=== PATIENT | female | born 1980 | race Two or more races ===

== ENCOUNTER 2020-01-21 15:11 | Outpatient (REF) | payer OTHER, SELFPAY ==
[2020-01-21 17:02] LABS: MANUAL DIFF FLAG NO
[2020-01-21 17:09] LABS: Basophils Percent Auto 0.2 % (0-2); Eosinophils Absolute Auto 0.1 X10*3/uL (0.0-0.4); Eosinophils Percent Auto 0.6 % (0-4); Hematocrit 40.9 % (37-47); Hemoglobin 13.5 g/dl (12.0-16.0); Imm Gran Abs Auto 0.04 X10*3/uL (0.00-0.03); Imm Gran Pct Auto 0.4 % (0.0-0.4); Lymphocytes Absolute Auto 2.8 X10*3/uL (1.2-4.9); Lymphocytes Percent Auto 25.7 % (20-40); Mean Corpuscular Hemoglobin 30.9 pg (27.0-33.0); Mean Corpuscular Volume 93.6 fL (80-98); Mean Platelet Volume 9.8 fL (9.4-12.3); Monocytes Absolute Auto 0.6 X10*3/uL (0.1-1.2); Neutrophils Absolute Auto 7.2 X10*3/uL (2.0-8.3); Neutrophils Percent Auto 67.1 % (45-73); Platelet Count 363 X10*3/uL (160-400); Red Blood Count 4.37 X10*6/uL (4.20-5.50); Red Cell Distribution Width 12.5 % (11.0-16.0); White Blood Count 10.7 X10*3/uL (4.8-10.8)
[2020-01-21 17:11] LABS: Estimated Average Glucose 91 mg/dL; Hemoglobin A1c % 4.8 %
[2020-01-21 17:45] LABS: C Reactive Protein 0.54 mg/dL (< or = 0.50); Cholesterol 462 mg/dL; HDL Cholesterol 88 mg/dL; LDL Cholesterol Calculated 322 mg/dl; Triglycerides 260 mg/dL
[2020-01-21 17:47] LABS: TSH reflex Free T4 2.36 mIU/mL (0.32-4.0)
[2020-01-21 18:19] LABS: Erythrocyte Sedimentation Rate 81 MM/HR (0-20)
[2020-01-22 04:04] LABS: HBsAGNum1 0.17 S/CO (0.00-0.99); Hepatitis B Surface Antigen Negative (Negative)
== END 2020-01-21 15:12 | disposition home or self-care (01) ==
LOC: HO.LAB 15:11
PROVIDERS: PCP Family Medicine; Visit Provider Family Medicine
DX: I10 Essential (primary) hypertension (principal); M79.605 Pain in left leg; M79.604 Pain in right leg; R51.9 Headache, unspecified
CPT/HCPCS: 36415; 80061; 82550; 83036; 84443; 85025; 85652; 86140; 87340

== ENCOUNTER 2020-02-17 13:37 | Outpatient (REF) | payer OTHER, SELFPAY ==
--- NOTE | 2020-02-17 | US_ITS ---
EXAMINATION: US RIGHT AND LEFT LOWER EXTREMITY VENOUS ULTRASOUND (REFLUX EXAM) CLINICAL INDICATION: Bilateral leg pain. Evaluate for venous insufficiency. COMPARISON: None. TECHNIQUE: Color flow triplex imaging and compression Doppler was performed to evaluate both the deep and the superficial systems bilaterally. To evaluate the superficial system, the examination was performed in the upright position. Color-flow Doppler ultrasound and compression ultrasound were utilized. In addition, maneuvers were utilized to demonstrate reflux. FINDINGS: 1. DEEP VENOUS ULTRASOUND OF THE RIGHT LOWER EXTREMITY: Respiratory variation, normal compression and augmented flow are noted in the right common femoral vein, mid superior femoral vein as well as the right popliteal vein and there is no evidence of deep venous thrombosis at these locations. There is no evidence of reflux in the deep system in either the common femoral vein, superior femoral vein or the popliteal vein. There is no evidence of a Rodríguez's cyst. 2. SUPERFICIAL ULTRASOUND WITH DOPPLER OF RIGHT LOWER EXTREMITY: The right great saphenous vein at the saphenofemoral junction measures 7 mm, at the mid thigh 3 mm, [id number] 3 mm, pxyuq-exf-lkde 2 mm, at mid calf 2 mm and at the ankle measures 2 mm. There is a right greater saphenous vein reflux measuring 0.6 seconds [id number], 2.6 seconds at the mid calf and 2.3 seconds at the ankle. The right small saphenous vein measures 2-4 mm and shows no reflux. There is slow Rouleaux flow. There are small varicosities that measure less than 3 mm and do not demonstrate reflux. There is a 3.5 x 1.2 x 3.7 cm Rodríguez's cyst. 3. DEEP VENOUS ULTRASOUND OF THE LEFT LOWER EXTREMITY: Respiratory variation, normal compression and augmented flow are noted in the left common femoral vein, mid superior femoral vein as well as the left popliteal vein and there is no evidence of deep venous thrombosis at these locations. There is no evidence of reflux in the deep system in either the common femoral vein, superior femoral vein or the popliteal vein. There is no evidence of a Rodríguez's cyst. 4. SUPERFICIAL ULTRASOUND WITH DOPPLER OF LEFT LOWER EXTREMITY: Left great saphenous vein at the saphenofemoral junction measures 7 mm, at the mid thigh 4 mm, zfmyn-uud-ntah 4 mm, bzmaa-mnj-rped 3 mm, at mid calf 2 mm and at the ankle measures 2 mm. There is left greater saphenous vein reflux measuring 1.9 seconds below the knee, 2.3 seconds at the mid calf and 1.5 seconds at the ankle. The left small saphenous vein measures 2-3 mm and shows no reflux. There is slow Rouleaux flow. There are small varicosities that measure less than 3 mm and do not demonstrate reflux. There is a 3 x 2.4 x 1.2 cm Rodríguez's cyst. US/US venous duplex LE BI IMPRESSION: 1. No evidence of deep venous reflux or thrombus in the common femoral, mid superior femoral and popliteal veins bilaterally. 2. Bilateral greater saphenous vein reflux [id number]-[id number]. 3. Small bilateral Rodríguez's cysts.
== END 2020-02-17 13:38 | disposition home or self-care (01) ==
LOC: HO.US 13:37
PROVIDERS: PCP Family Medicine; Visit Provider Family Medicine
DX: M79.604 Pain in right leg (principal); M79.605 Pain in left leg
CPT/HCPCS: 93970

== ENCOUNTER 2020-02-17 15:53 | Outpatient (REF) | payer OTHER, SELFPAY ==
--- NOTE | 2020-02-17 | MR_ITS ---
EXAMINATION: MR BRAIN WITHOUT AND WITH CONTRAST CLINICAL INFORMATION: Hypertension. Systemic lupus erythematosus. Headache. COMPARISON: No relevant prior imaging. TECHNIQUE: Multiplanar MR imaging of the brain was performed without and with contrast. A total of 8 mL Gadavist was utilized for this examination. FINDINGS: Postcontrast images reveal no mass or enhancement within the intracranial compartment. No intracranial mass effect or midline shift. Lateral and third ventricles are normal. No hydrocephalus. Midline structures including the cervicomedullary junction are normal. No acute bone marrow signal changes. There is no acute territorial infarct. No pathological magnetic susceptibility artifact. Intracranial vascular flow voids are grossly maintained. There is a small right mastoid tip effusion. No active paranasal sinus disease. Globes and orbits are symmetric. MR/MR head/brain wo/w con IMPRESSION: Unremarkable examination. No evidence of acute territorial infarct or hemorrhage. No abnormal intracranial mass or enhancement.
[2020-02-17 16:39] LABS: MANUAL DIFF FLAG NO
[2020-02-17 16:48] LABS: Basophils Percent Auto 0.2 % (0-2); Eosinophils Percent Auto 0.2 % (0-4); Hematocrit 37.7 % (37-47); Hemoglobin 12.6 g/dl (12.0-16.0); Imm Gran Abs Auto 0.04 X10*3/uL (0.00-0.03); Imm Gran Pct Auto 0.3 % (0.0-0.4); Lymphocytes Absolute Auto 1.8 X10*3/uL (1.2-4.9); Lymphocytes Percent Auto 15.4 % (20-40); Mean Corpuscular HGB Conc 33.4 g/dl (31.0-35.0); Mean Corpuscular Volume 95.7 fL (80-98); Mean Platelet Volume 9.5 fL (9.4-12.3); Monocytes Absolute Auto 0.8 X10*3/uL (0.1-1.2); Monocytes Percent Auto 6.5 % (2-11); Neutrophils Absolute Auto 8.9 X10*3/uL (2.0-8.3); Neutrophils Percent Auto 77.4 % (45-73); Platelet Count 323 X10*3/uL (160-400); Red Blood Count 3.94 X10*6/uL (4.20-5.50); Red Cell Distribution Width 13.3 % (11.0-16.0); White Blood Count 11.5 X10*3/uL (4.8-10.8)
[2020-02-17 16:58] LABS: Estimated Average Glucose 100 mg/dL; Hemoglobin A1c % 5.1 %
[2020-02-17 17:08] LABS: Blood Urea Nitrogen 28 mg/dL (9-16); C Reactive Protein 0.91 mg/dL (< or = 0.50); Estimated Glomerular Filt Rate 52
[2020-02-17 17:30] LABS: TSH reflex Free T4 2.38 mIU/mL (0.32-4.0)
[2020-02-17 17:39] LABS: Erythrocyte Sedimentation Rate 81 MM/HR (0-20)
[2020-02-18 07:45] LABS: HBsAGNum1 0.39 S/CO (0.00-0.99); Hepatitis B Surface Antigen Negative (Negative)
== END 2020-02-17 15:54 | disposition home or self-care (01) ==
LOC: HO.MRI 15:53
PROVIDERS: PCP Family Medicine; Visit Provider Family Medicine
DX: I10 Essential (primary) hypertension (principal); M32.9 Systemic lupus erythematosus, unspecified; R51.9 Headache, unspecified; M79.604 Pain in right leg; M79.605 Pain in left leg
CPT/HCPCS: 36415; 70553; 82565; 83036; 84443; 84520; 85025; 85652; 86140; 87340; A9585

== ENCOUNTER 2020-05-05 16:16 | Outpatient (REF) | payer OTHER, SELFPAY ==
[2020-05-05 17:16] LABS: Blood Urea Nitrogen 35 mg/dL (9-16); Estimated Glomerular Filt Rate 40
[2020-05-06 06:32] LABS: Follicle Stimulating Hormone 184.5 mIU/mL; Prolactin 7.2 ng/mL
[2020-05-09 14:01] LABS: Testosterone, Free 0.8 pg/mL (0.1-6.4); Testosterone, Total 8 ng/dL (2-45)
[2020-05-12 22:46] LABS: Estradiol Free <0.06 pg/mL; Estradiol, Ultrasensitive <2 pg/mL
== END 2020-05-05 16:17 | disposition home or self-care (01) ==
LOC: HO.LAB 16:16
PROVIDERS: PCP Family Medicine; Visit Provider Family Medicine
DX: I10 Essential (primary) hypertension (principal); N91.1 Secondary amenorrhea
CPT/HCPCS: 36415; 82565; 82670; 83001; 84146; 84402; 84403; 84520

== ENCOUNTER → 2020-11-11 08:31 | Outpatient (BNVA) | payer OTHER, SELFPAY | PROVIDERS: PCP Family Medicine; Visit Provider Internal Medicine ==

== ENCOUNTER 2020-11-12 07:25 | Outpatient (REF) | payer OTHER, SELFPAY ==
[2020-11-12 08:30] LABS: Alanine Aminotransferase 19 U/L (0-31); Albumin Level 3.6 g/dL (3.5-5.0); Alkaline Phosphatase 126 U/L (39-117); Anion Gap 11 (12-20); Aspartate Amino Transferase 22 U/L (5-31); Bilirubin Total 0.2 mg/dL (0.0-1.0); Blood Urea Nitrogen 35 mg/dL (9-16); Calcium 8.7 mg/dL (8.4-10.2); Carbon Dioxide 22 mmol/L (22-29); Chloride 110 mmol/L (96-108); Cholesterol 178 mg/dL; Estimated Glomerular Filt Rate 37; Glucose Random 104 mg/dL (60-115); HDL Cholesterol 72 mg/dL; LDL Cholesterol Calculated 81 mg/dl; Phosphorus 3.7 mg/dL (2.7-4.5); Potassium 4.4 mmol/L (3.3-5.1); Sodium 139 mmol/L (135-145); Total Protein 6.3 g/dL (6.5-8.0); Triglycerides 125 mg/dL
[2020-11-12 08:55] LABS: Free T4 (Free Thyroxine) 1.09 ng/dL (0.71-1.85); Thyroid Stimulating Hormone 2.58 uIU/mL (0.32-4.0); Vitamin D 25-OH Total 21.1 ng/mL (>30)
[2020-11-15 04:01] LABS: LDL Cholesterol Direct 80 mg/dL (<100)
[2020-11-15 13:12] LABS: Calcium (PTHI) 8.7 mg/dL (8.6-10.2); PTHI 100 pg/mL (14-64)
[2020-11-15 16:51] LABS: Follicle Stimulating Hormone 173.4 mIU/mL; Lutenizing Hormone 154.7 mIU/mL
[2020-11-15 22:37] LABS: Adrenocorticotropic Hormone 31 pg/mL (6-50)
[2020-11-16 17:51] LABS: N-Telopeptide 57 (see note); NTXCreaRU 96 mg/dL (20-275)
[2020-11-17 03:25] LABS: Estradiol Ultra Sensitive 23 pg/mL
[2020-11-18 20:07] LABS: Saliva Cortisol 0.05 mcg/dL
[2020-11-25 01:40] LABS: Estradiol Free 0.53 pg/mL
[2020-11-25 21:17] LABS: 21 Hydroxylase Antibody NEGATIVE (NEGATIVE)
== END 2020-11-12 07:26 | disposition home or self-care (01) ==
LOC: HO.LAB 07:25
PROVIDERS: PCP Family Medicine; Visit Provider Internal Medicine
DX: E28.39 Other primary ovarian failure (principal); E55.9 Vitamin D deficiency, unspecified; M85.80 Other specified disorders of bone density and structure, unspecified site
CPT/HCPCS: 36415; 80053; 80061; 82024; 82306; 82523; 82530; 82533; 82670; 82681; 83001; 83002; 83519; 83721; 83970; 84100; 84439; 84443

== ENCOUNTER 2020-11-18 07:58 | Outpatient (REF) | payer OTHER, SELFPAY ==
[2020-11-22 18:26] LABS: Adrenocorticotropic Hormone <5 pg/mL (6-50)
[2020-11-24 09:16] LABS: Dexamethasone 864 ng/dL
== END 2020-11-18 07:59 | disposition home or self-care (01) ==
LOC: HO.LAB 07:58
PROVIDERS: PCP Family Medicine; Visit Provider Internal Medicine
DX: E28.39 Other primary ovarian failure (principal)
CPT/HCPCS: 36415; 80299; 82024; 82533

== ENCOUNTER 2020-11-19 08:45 | Outpatient (REF) | payer OTHER, SELFPAY ==
[2020-11-23 23:01] LABS: N-Telopeptide 38 (see note); NTXCreaRU 39 mg/dL (20-275)
== END 2020-11-19 08:46 | disposition home or self-care (01) ==
LOC: HO.LNP 08:45
PROVIDERS: Visit Provider Internal Medicine
DX: M85.80 Other specified disorders of bone density and structure, unspecified site (principal); E28.39 Other primary ovarian failure
CPT/HCPCS: 82523

== ENCOUNTER → 2021-03-02 12:24 | Outpatient (BNVA) | payer OTHER, SELFPAY | PROVIDERS: PCP Family Medicine; Visit Provider Internal Medicine ==

== ENCOUNTER 2021-03-31 13:24 | Outpatient (REF) | payer OTHER, SELFPAY ==
--- NOTE | ~2021-03-31 | MM_ITS ---
EXAMINATION: BONE DENSITOMETRY CLINICAL INDICATION: Hyperparathyroidism, unspecified. Age 40. COMPARISON: Previous BD dated 11/25/2019 and baseline BD dated 10/14/2013. This is the patient's baseline examination for the forearm radius 33%. TECHNIQUE: Using a [employer] DXA System (software version: 13.1) manufactured by [employer], dual-energy x-ray absorptiometry was performed of the lumbar spine, left hip, and left forearm radius 33%. The images are of good technical quality. Summary results are attached. FINDINGS: AP SPINE L1-L4: Current: BMD 1.084 g/cm2, Z-score -1.2, T-score -0.8, normal, 3.3% increase from previous, 9.4% increase from baseline (<5% change is not significant). Prior: BMD 1.049 g/cm2. Baseline: BMD 0.991 g/cm2. LEFT FEMUR, NECK: Current: BMD 0.722 g/cm2, Z-score -2.1, T-score -2.3, osteopenia. Prior: BMD 0.772 g/cm2. Baseline: BMD 0.829 g/cm2. LEFT FEMUR, TOTAL: Current: BMD 0.804 g/cm2, Z-score -1.7, T-score -1.6, osteopenia, 2.0% decrease from previous, 1.3% decrease from baseline (<5% change is not significant). Prior: BMD 0.820 g/cm2. Baseline: BMD 0.815 g/cm2. LEFT FOREARM RADIUS 33%: BMD 0.846 g/cm2, Z-score -0.3, T-score -0.3, normal. Prior: Not previously measured. IDENTIFIED RISK FACTORS: Early menopause, secondary osteoporosis, osteoporosis, renal, hyperparathyroidism, glucocorticoids (chronic). HISTORY OF FRACTURE: None listed. MEDICATIONS: Calcium supplements or multivitamin, vitamin D, ERT/SERMS. MM/XR DEXA appendicular skeleton IMPRESSION: 1. DIAGNOSIS: Osteopenia based on the lowest T-score value of -2.3 in the femoral neck applying World Health Organization criteria. 2. 10-YEAR FRACTURE RISK PREDICTION, FRAX: Not performed in this patient outside the age range of 40-90 years. 3. Treatment Recommendations: NOF guidelines recommend consideration for treatment in postmenopausal women and men age 50 and older presenting with the following: -A hip or vertebral (clinical or morphometric) fracture. -T-score less than or equal to -2.5 at the femoral neck or spine after appropriate evaluation to exclude secondary causes. -Low bone mass at the hip or spine and a 10-year fracture probability by FRAX of greater than or equal to 3% for hip fracture or greater than or equal to 20% for major osteoporotic fracture based on the [place] adapted WHO algorithm. 4. Other Recommendations: All treatment decisions require clinical judgment and consideration of individual patient factors, including patient preferences, comorbidities, previous drug use, risk factors not captured in the FRAX model (e.g. frailty, falls, vitamin D deficiency, increased bone turnover, interval significant decline in bone density) and possible under or overestimation of fracture risk by FRAX. Additional medical evaluation for secondary cause of low bone mineral density may be appropriate. FUTURE SCAN RECOMMENDATION: People with diagnosed cases of osteoporosis or at high risk for fracture should have regular bone mineral density tests. For patients eligible for Medicare, routine testing is allowed once every 2 years. The testing frequency can be increased to one year for patients who have rapidly progressing disease, those who are receiving or discontinuing medical therapy to restore bone mass, or have additional risk factors.
== END 2021-03-31 13:25 | disposition home or self-care (01) ==
LOC: HO.MAMMO 13:24
PROVIDERS: PCP Family Medicine; Visit Provider Internal Medicine
DX: Z13.820 Encounter for screening for osteoporosis (principal); E21.3 Hyperparathyroidism, unspecified; Z78.0 Asymptomatic menopausal state; Z79.899 Other long term (current) drug therapy
CPT/HCPCS: 77081

== ENCOUNTER 2021-09-14 11:32 | Outpatient (REF) | payer OTHER, SELFPAY ==
[2021-09-14 13:58] LABS: Alanine Aminotransferase 15 U/L (0-31); Albumin Level 4.1 g/dL (3.5-5.0); Alkaline Phosphatase 115 U/L (39-117); Anion Gap 16 (12-20); Aspartate Amino Transferase 20 U/L (5-31); Bilirubin Total 0.6 mg/dL (0.0-1.0); Blood Urea Nitrogen 27 mg/dL (9-16); Calcium 8.6 mg/dL (8.4-10.2); Carbon Dioxide 23 mmol/L (22-29); Chloride 102 mmol/L (96-108); Estimated Glomerular Filt Rate 50; Glucose Random 89 mg/dL (60-115); Phosphorus 3.2 mg/dL (2.7-4.5); Sodium 137 mmol/L (135-145); Total Protein 7.8 g/dL (6.5-8.0)
[2021-09-14 13:59] LABS: Cortisol Random 10.9 ug/dL
[2021-09-14 14:00] LABS: Free T4 (Free Thyroxine) 1.02 ng/dL (0.71-1.85); Thyroid Stimulating Hormone 3.74 uIU/mL (0.32-4.0); Vitamin D 25-OH Total 34.8 ng/mL (>30)
[2021-09-16 01:52] LABS: Sex Hormone Binding Globulin 102 nmol/L (17-124)
[2021-09-16 12:02] LABS: Calcium (PTHI) 8.9 mg/dL (8.6-10.2); PTHI 162 pg/mL (16-77)
[2021-09-17 22:37] LABS: Prot Elec - Albumin 3.9 g/dL (3.8-4.8); Prot Elec - Alpha1 0.4 g/dL (0.2-0.3); Prot Elec - Beta 1 0.4 g/dL (0.4-0.6); Prot Elec - Beta 2 0.5 g/dL (0.2-0.5); Prot Elec - Gamma 1.1 g/dL (0.8-1.7); Prot Elec - Total Protein 7.3 g/dL (6.1-8.1)
[2021-09-24 01:11] LABS: Estradiol Free 2.41 pg/mL; Estradiol, Ultrasensitive 194 pg/mL
== END 2021-09-14 11:33 | disposition home or self-care (01) ==
LOC: HO.LAB 11:32
PROVIDERS: PCP Family Medicine; Visit Provider Internal Medicine
DX: E28.39 Other primary ovarian failure (principal); M85.80 Other specified disorders of bone density and structure, unspecified site; E55.9 Vitamin D deficiency, unspecified
CPT/HCPCS: 36415; 80053; 82306; 82533; 82670; 82681; 83970; 84100; 84165; 84270; 84439; 84443

== ENCOUNTER 2021-10-18 20:57 | Emergency (ER) | payer OTHER, SELFPAY ==
--- NOTE | ~2021-10-18 | XR_ITS ---
EXAMINATION: XR ANKLE, LEFT CLINICAL INFORMATION: Abnormal foot x-ray COMPARISON: None TECHNIQUE: AP, lateral, and mortise views of the left ankle. FINDINGS: Bone alignment is normal. No fracture or dislocation is seen. There is a lucent lesion with faint sclerotic margin in the intramedullary distal tibial metaphysis and some posterior cortical thickening. This may represent a bone infarct. The ankle mortise is normal. Soft tissues are normal. XR/XR ankle LT 2V IMPRESSION: Question bone infarct in the distal tibia. Otherwise unremarkable exam.
--- NOTE | ~2021-10-18 | XR_ITS ---
EXAMINATION: XR FOOT, LEFT CLINICAL INFORMATION: Pain. Injury. COMPARISON: None TECHNIQUE: AP, lateral, and oblique views of the left foot. FINDINGS: Bone alignment is normal. No fracture or dislocation is seen. There is question of an intramedullary lucent lesion with sclerotic margin in the distal tibia. Joint spaces are normal. Soft tissues are normal. XR/XR foot LT min 3V IMPRESSION: Normal left foot. Question intramedullary lesion in the distal tibia. Follow-up left lower leg or ankle x-ray recommended.
[2021-10-18 21:14] VITALS: BP 153/90; PULSE 101; RESP 18; TEMP 36.4; O2SAT 98
--- NOTE | 2021-10-18 22:19 | ED_ITS ---
HPI - Extremity Injury (Lower) General Chief Complaint: Extremity Injury, Lower Stated Complaint: right foot pain Time Seen by Provider: 10/18/21 22:19 Source: patient and family (Spouse) Mode of arrival: ambulatory Limitations: no limitations History of Present Illness HPI Narrative: 41-year-old female came in for evaluation of left foot pain. About 10-15 lb luggage dropped on her left foot 3 days ago complaining of left foot pain, patient is walking with pain but able to bear weight on her left foot, no other injuries. Related Data Home Medications Medication Instructions Recorded Confirmed atorvastatin 20 mg tablet 20 mg PO DAILY 11/11/20 09/15/21 furosemide 80 mg tablet 80 mg PO DAILY 11/11/20 09/15/21 hydroxychloroquine 200 mg tablet 200 mg PO DAILY 11/11/20 09/15/21 losartan 100 mg tablet 100 mg PO DAILY 11/11/20 09/15/21 magnesium 250 mg tablet 250 mg PO DAILY 11/11/20 09/15/21 melatonin 1 mg tablet 1 mg PO BEDTIME PRN 11/11/20 09/15/21 omeprazole 10 mg capsule,delayed 10 mg PO DAILY 11/11/20 09/15/21 release tacrolimus 1 mg capsule, 2 mg PO DAILY 11/11/20 09/15/21 immediate-release valacyclovir 500 mg tablet 500 mg PO DAILY 11/11/20 09/15/21 omeprazole 20 mg capsule,delayed 20 mg PO DAILY 09/15/21 09/15/21 release Previous Rx's Medication Instructions Recorded medroxyprogesterone 10 mg tablet See Rx Instructions PO DAILY #12 11/11/20 tabs dexamethasone 1 mg tablet 1 mg PO DAILY #1 tab 11/17/20 estradiol 2 mg tablet 2 mg PO DAILY 30 days #30 tabs 12/08/20 cholecalciferol (vitamin D3) 50 50 mcg PO DAILY 30 days #30 caps 03/02/21 mcg (2,000 unit) capsule calcium citrate 250 mg 2 tab PO BID 30 days #120 tabs 09/26/21 calcium-vitamin D3 5 mcg (200 unit) tablet Allergies Allergy/AdvReac Type Severity Reaction Status Date / Time lisinopril Allergy Intermediate Cough Verified 10/18/21 21:13 adhesive tape Allergy Rash Verified 10/18/21 21:14 Review of Systems Review of Systems: all other systems are reviewed and are negative Constitutional: Reports as per HPI and Reports no additional constitutional complaints Eyes: Reports as per HPI and Reports no additional eye complaints Reports system reviewed and no additional complaints, except as documented Cardiovascular: Reports as per HPI and Reports no additional cardiovascular complaints Respiratory: Reports as per HPI and Reports no additional respiratory complaints Gastrointestinal: Reports as per HPI and Reports no additional gastrointestinal complaints Genitourinary: Reports no additional female genitourinary complaints Musculoskeletal: Reports no additional musculoskeletal complaints Skin/Breast: Reports system reviewed and no additional complaints, except as docu Psychiatric: Reports no additional psychiatric complaints Endocrine: Reports no additional endocrine complaints Hematologic/Lymphatic: Reports no additional hematologic/lymphatic complaints Allergic/Immunologic: Reports no additional allergic/immunologic complaints Reports system reviewed and no additional complaints, except as documented and Reports Abnormal speech present [facility] Past Medical History Medical History Goiter Hyperparathyroidism Osteopenia Premature ovarian failure Systemic lupus erythematosus Vitamin D deficiency Well woman exam Surgical History Hx of section Family History Family History Mother Thyroid disease Autoimmune disorder Brother Cancer Father Diabetes Social History Social History Alcohol intake: current Alcohol intake frequency: holidays/special occasions only Patient Tobacco Use Status: Former Tobacco user Smoked in Last 30 Days: No Use of substances other than those prescribed or required for medical reasons: No Advance Directives: No Advance Directives Information Provided: No Physical Exam Vital Signs: Vital Signs: Last Vital Signs Temp 99.1 F 10/18/21 22:23 Pulse 94 10/18/21 22:23 Resp 16 10/18/21 22:23 BP 147/103 H 10/18/21 22:23 Pulse Ox 98 10/18/21 22:23 O2 Del Method 10/18/21 22:23 BMI result Body Mass Index 0.3 vital signs have been reviewed as appeared to be correct. Blood pressure normal. Heart rate normal. Respiration rate normal. Temperature normal. Oxygen saturation normal. Appearance: Alert. Oriented X3. No acute distress. Head: Normal external exam. Normocephalic. Atraumatic. No Valverde signs noted. N o raccoon eyes noted Eyes: PERRLA. EOMI. Conjunctiva and sclera normal. Eyelids normal. ENT: TM's Normal. Pharynx normal. Uvula midline. Moist mucous membranes. No trismus noted. No drooling noted. No muffled voice noted. Neck: Normal inspection. Neck supple. FROM. No adenopathy. Thyroid Normal. No meningeal signs. No neck mass noted. CVS: Normal heart rate and rhythm. Heart sound normal. No murmurs noted. Pulses normal throughout. Respiratory: No respiratory distress. Painless inspiration. Breath sounds normal. No wheezes/rales/rhonchi noted. Chest nontender. No accessory muscle usage noted or decreased air movement noted. Abdomen: Soft and nontender. Bowel sounds normal in all 4 quadrants. No distention noted. No organomegaly noted. No visible injury noted. Back: No CVA tenderness. Full range of motion noted. Skin: Skin warm and dry. Normal skin color. Normal skin turgor. No rashes/lesions/lacerations noted. Extremities: mild tenderness over left foot, no deformity, no step-off. Neuro: Oriented X 3. Cranial nerve exam: II-XII are grossly intact No motor deficit. No sensory deficit. Reflexes normal. Course Course Course Narrative: Left foot contusion with no fracture. Ice, rest, elevation, acetaminophen p.r.n. pain. abnormal bone infarction? On the ankle x-ray not clear how clinically this finding is significant but will refer to Ortho for further assessment. MDM - Extremity Injury (Lower) Imaging Data Left foot x-ray: Attestation: I personally reviewed and interpreted this imaging study as follows: Radiologist's impression: Normal left foot. Question intramedullary lesion in the distal tibia. Follow-up left lower leg or ankle x-ray recommended. Discharge Plan Discharge Clinical Impression: Contusion of foot, left, Abnormal x-ray Patient Disposition: Home, Self-Care Instructions: Foot Contusion (ED) Prescriptions: No Action dexamethasone 1 mg tablet 1 mg PO DAILY Qty: 1 0RF estradiol 2 mg tablet 2 mg PO DAILY 30 Days Qty: 30 11RF calcium citrate-vitamin D3 250 mg-5 mcg (200 unit) tablet 2 tab PO BID 30 Days Qty: 120 11RF cholecalciferol (vitamin D3) 50 mcg (2,000 unit) capsule 50 mcg PO DAILY 30 Days Qty: 30 11RF magnesium 250 mg tablet 250 mg PO DAILY hydroxychloroquine 200 mg tablet 200 mg PO DAILY valacyclovir 500 mg tablet 500 mg PO DAILY losartan 100 mg tablet 100 mg PO DAILY atorvastatin 20 mg tablet 20 mg PO DAILY tacrolimus 1 mg capsule 2 mg PO DAILY furosemide 80 mg tablet 80 mg PO DAILY omeprazole 10 mg capsule,delayed release(DR/EC) 10 mg PO DAILY melatonin 1 mg tablet 1 mg PO BEDTIME PRN medroxyprogesterone 10 mg tablet See Rx Instructions PO DAILY Qty: 12 11RF Rx Instructions: Take 1 tab daily for the first 12 days of each month. PO daily; omeprazole 20 mg capsule,delayed release(DR/EC) 20 mg PO DAILY Referrals: Mayra Santos MD [Primary Care Provider] - Sampson Perera MD [Physician] -
[2021-10-18 22:23] VITALS: BP 147/103; PULSE 94; RESP 16; TEMP 37.3; O2SAT 98
== END 2021-10-18 23:15 | disposition home or self-care (01) ==
PROVIDERS: Emergency Provider Emergency Medicine; PCP Family Medicine
DX: S90.32XA Contusion of left foot, initial encounter (principal); W20.8XXA Other cause of strike by thrown, projected or falling object, initial encounter; R93.6 Abnormal findings on diagnostic imaging of limbs; Y93.89 Activity, other specified; Y92.9 Unspecified place or not applicable; Y99.9 Unspecified external cause status
CPT/HCPCS: 73600; 73630; 99283; 99284

== ENCOUNTER 2021-11-07 10:01 | Outpatient (REF) | payer OTHER, SELFPAY ==
[2021-11-12 04:41] LABS: HPV mRNA E6/E7 rflx Not Detected (Not Detected)
== END 2021-11-07 10:02 | disposition home or self-care (01) ==
LOC: HO.LAB 10:01
PROVIDERS: Visit Provider Obstetrics & Gynecology
DX: Z01.419 Encounter for gynecological examination (general) (routine) without abnormal findings (principal); Z11.51 Encounter for screening for human papillomavirus (HPV)
CPT/HCPCS: 87624; 88142

== ENCOUNTER 2021-11-23 12:23 | Outpatient (REF) | payer OTHER, SELFPAY ==
--- NOTE | ~2021-11-23 | MM_ITS ---
EXAMINATION: MM SCREENING DIGITAL BREAST TOMOSYNTHESIS, BILATERAL CLINICAL INFORMATION: Screening. Asymptomatic. Age 41. No prior breast imaging. No known family history breast cancer. The lifetime risk of breast cancer based on the Tyrer-Cuzick Model is 12%. COMPARISON: None (current study represents initial baseline exam). TECHNIQUE: Digital breast tomosynthesis is performed in both the craniocaudal and mediolateral oblique views along with computer-aided detection (CAD). Synthesized 2D images are generated from the tomosynthesis. FINDINGS: There are scattered areas of fibroglandular density (ACR BI-RADS breast composition Category b). There are no significant masses, abnormal calcifications, or other abnormalities. No architectural abnormality. The axilla and skin contours are unremarkable. MM/MM tomosynthesis screening BI IMPRESSION: No mammographic evidence of malignancy. ASSESSMENT: BI-RADS 1: Negative RECOMMENDATION: Routine annual mammography screening. This patient's information was entered into a reminder system with a target due date for their next mammogram.
== END 2021-11-23 12:24 | disposition home or self-care (01) ==
LOC: HO.MAMMO 12:23
PROVIDERS: PCP Family Medicine; Visit Provider Obstetrics & Gynecology
DX: Z12.31 Encounter for screening mammogram for malignant neoplasm of breast (principal)
CPT/HCPCS: 77063; 77067

== ENCOUNTER 2022-01-23 08:39 | Outpatient (REF) | payer OTHER, SELFPAY ==
[2022-01-23 10:01] LABS: Alanine Aminotransferase 18 U/L (0-31); Albumin Level 3.5 g/dL (3.5-5.0); Alkaline Phosphatase 76 U/L (39-117); Anion Gap 16 (12-20); Aspartate Amino Transferase 12 U/L (5-31); Bilirubin Total 0.4 mg/dL (0.0-1.0); Blood Urea Nitrogen 28 mg/dL (9-16); Calcium 9.2 mg/dL (8.4-10.2); Carbon Dioxide 22 mmol/L (22-29); Chloride 106 mmol/L (96-108); Estimated Glomerular Filt Rate 53; Glucose Random 77 mg/dL (60-115); Potassium 4.2 mmol/L (3.3-5.1); Sodium 140 mmol/L (135-145)
[2022-01-23 10:24] LABS: Vitamin D 25-OH Total 27.7 ng/mL (>30)
[2022-01-24 08:28] LABS: Sex Hormone Binding Globulin 77 nmol/L (17-124)
[2022-01-24 09:02] LABS: Lutenizing Hormone 7.6 mIU/mL
[2022-01-25 14:17] LABS: Calcium (PTHI) 9.3 mg/dL (8.6-10.2); PTHI 48 pg/mL (16-77)
[2022-01-27 16:06] LABS: 21 Hydroxylase Antibody NEGATIVE (NEGATIVE)
== END 2022-01-23 08:40 | disposition home or self-care (01) ==
LOC: HO.LAB 08:39
PROVIDERS: PCP Family Medicine; Visit Provider Internal Medicine
DX: E21.3 Hyperparathyroidism, unspecified (principal); E55.9 Vitamin D deficiency, unspecified; E28.39 Other primary ovarian failure
CPT/HCPCS: 36415; 80053; 82306; 82670; 83001; 83002; 83519; 83970; 84100; 84270

== ENCOUNTER 2022-01-25 08:40 | Outpatient (REF) | payer OTHER, SELFPAY ==
[2022-01-25 09:31] LABS: Creatinine, mg/dL 108.35
[2022-01-25 14:09] LABS: Creatinine, 24Hr Urine 1.4 G/Day (1.0-2.0); Total Volume 24 Hour Urine 1300 mL
[2022-01-28 19:52] LABS: Calcium, 24 Hr Urine 44 mg/24 h; Calcium/Creatinine Ratio 31 mg/g creat (30-275)
== END 2022-01-25 08:41 | disposition home or self-care (01) ==
LOC: HO.LNP 08:40
PROVIDERS: Visit Provider Internal Medicine
DX: E21.3 Hyperparathyroidism, unspecified (principal); E04.9 Nontoxic goiter, unspecified
CPT/HCPCS: 82340; 82570

== ENCOUNTER 2022-02-20 08:12 | Outpatient (REF) | payer OTHER, SELFPAY ==
[2022-02-20 09:31] LABS: Free T4 (Free Thyroxine) 1.02 ng/dL (0.71-1.85); Thyroid Stimulating Hormone 2.66 uIU/mL (0.32-4.0)
== END 2022-02-20 08:13 | disposition home or self-care (01) ==
LOC: HO.LAB 08:12
PROVIDERS: PCP Family Medicine; Visit Provider Internal Medicine
DX: E04.9 Nontoxic goiter, unspecified (principal)
CPT/HCPCS: 36415; 84439; 84443

== ENCOUNTER → 2022-04-28 14:19 | Outpatient (BNVA) | payer OTHER, SELFPAY | PROVIDERS: PCP Family Medicine; Referring Provider Family Medicine; Visit Provider Physician Assistant Surgical | DX: Z13.89 Encounter for screening for other disorder (principal) ==

== ENCOUNTER → 2022-05-26 15:36 | Outpatient (BNVA) | payer OTHER, SELFPAY | PROVIDERS: PCP Family Medicine; Visit Provider Dietitian, Registered | DX: E66.9 Obesity, unspecified (principal); Z68.31 Body mass index [BMI] 31.0-31.9, adult | CPT/HCPCS: 97802 ==

== ENCOUNTER 2022-06-14 08:10 | Outpatient (REF) | payer OTHER, SELFPAY ==
[2022-06-14 08:24] LABS: MANUAL DIFF FLAG NO
[2022-06-14 08:45] LABS: Basophils Percent Auto 0.5 % (0-2); Eosinophils Absolute Auto 0.2 X10*3/uL (0.0-0.4); Eosinophils Percent Auto 2.4 % (0-4); Hematocrit 37.5 % (37.0-47.0); Hemoglobin 12.9 g/dl (12.0-16.0); Imm Gran Abs Auto 0.02 X10*3/uL (0.00-0.03); Imm Gran Pct Auto 0.2 % (0.0-0.4); Lymphocytes Absolute Auto 2.2 X10*3/uL (1.2-4.9); Lymphocytes Percent Auto 26.3 % (20-40); Mean Corpuscular HGB Conc 34.4 g/dl (31.0-35.0); Mean Corpuscular Hemoglobin 31.9 pg (27.0-33.0); Mean Corpuscular Volume 92.6 fL (80.0-98.0); Mean Platelet Volume 9.7 fL (9.4-12.3); Monocytes Absolute Auto 0.6 X10*3/uL (0.1-1.2); Monocytes Percent Auto 6.9 % (2-11); Neutrophils Absolute Auto 5.4 x10*3/uL (2.0-8.3); Neutrophils Percent Auto 63.7 % (45-73); Platelet Count 326 X10*3/uL (160-400); Red Blood Count 4.05 X10*6/uL (4.20-5.50); White Blood Count 8.5 X10*3/uL (4.8-10.8)
[2022-06-14 08:54] LABS: Estimated Average Glucose 85 mg/dL; Hemoglobin A1c % 4.6 %
[2022-06-14 09:22] LABS: Alanine Aminotransferase 15 U/L (0-31); Albumin Level 3.5 g/dL (3.5-5.0); Alkaline Phosphatase 72 U/L (39-117); Anion Gap 13 (12-20); Aspartate Amino Transferase 17 U/L (5-31); Bilirubin Total 0.4 mg/dL (0.0-1.0); Blood Urea Nitrogen 26 mg/dL (9-16); C Reactive Protein 0.66 mg/dL (< or = 0.50); Calcium 9.1 mg/dL (8.4-10.2); Carbon Dioxide 24 mmol/L (22-29); Chloride 108 mmol/L (96-108); Cholesterol 249 mg/dL; Estimated Glomerular Filt Rate 50; Glucose Random 89 mg/dL (60-115); HDL Cholesterol 63 mg/dL; Iron 77 mcg/dL (30-160); LDL Cholesterol Calculated 148 mg/dl; Percent Iron Saturation 32 % (15-50); Potassium 4.6 mmol/L (3.3-5.1); Sodium 140 mmol/L (135-145); Total Iron Binding Capacity 237 mcg/dL (228-428); Total Protein 6.3 g/dL (6.5-8.0); Triglycerides 193 mg/dL; Unsaturated Iron Binding 160 ug/dL
[2022-06-14 09:53] LABS: Ferritin 135 ng/mL (10-250); Folate 10.9 ng/mL (> or = 4.0); Insulin 12 uU/mL (2-29); TSH reflex Free T4 3.11 uIU/mL (0.32-4.0); Vitamin B12 495 pg/mL (200-900); Vitamin D 25-OH Total 47.7 ng/mL (>30)
[2022-06-16 14:04] LABS: Calcium (PTHI) 9.1 mg/dL (8.6-10.2); PTHI 62 pg/mL (16-77)
[2022-06-19 03:14] LABS: Zinc 69 mcg/dL (60-130)
[2022-06-21 14:13] LABS: Vitamin B1 10 nmol/L (8-30)
[2022-06-21 23:33] LABS: Vitamin A 72 mcg/dL (38-98)
== END 2022-06-14 08:11 | disposition home or self-care (01) ==
LOC: HO.LAB 08:10
PROVIDERS: PCP Family Medicine; Visit Provider Physician Assistant Surgical
DX: E66.9 Obesity, unspecified (principal); E63.9 Nutritional deficiency, unspecified
CPT/HCPCS: 36415; 80053; 80061; 82306; 82607; 82728; 82746; 83036; 83525; 83540; 83970; 84425; 84443; 84590; 84630; 85025; 86140

== ENCOUNTER → 2022-06-23 13:06 | Outpatient (BNVA) | payer OTHER, SELFPAY | PROVIDERS: PCP Family Medicine; Visit Provider Physician Assistant Surgical | DX: Z13.89 Encounter for screening for other disorder (principal) ==

== ENCOUNTER → 2022-07-28 15:20 | Outpatient (BNVA) | payer OTHER, SELFPAY | PROVIDERS: PCP Family Medicine; Visit Provider Dietitian, Registered | DX: E66.9 Obesity, unspecified (principal); E21.3 Hyperparathyroidism, unspecified; M32.9 Systemic lupus erythematosus, unspecified | CPT/HCPCS: 97803 ==

== ENCOUNTER → 2022-08-25 15:30 | Outpatient (BNVA) | payer OTHER, SELFPAY | PROVIDERS: PCP Family Medicine; Visit Provider Physician Assistant Surgical ==

== ENCOUNTER 2022-12-04 10:43 | Outpatient (REF) | payer OTHER, SELFPAY ==
--- NOTE | ~2022-12-04 | XR_ITS ---
EXAMINATION: XR ANKLE, LEFT CLINICAL INFORMATION: Left ankle pain COMPARISON: 10/18/2021 TECHNIQUE: AP, lateral, and mortise views of the left ankle. FINDINGS: Redemonstration of a subtle lucent lesion with faint sclerotic margin in the intramedullary distal tibial metaphysis and some posterior cortical thickening, possibly representing a bone infarct. Ankle mortise is maintained. Alignment preserved. Ankle joint effusion present. XR/XR ankle LT min 3V IMPRESSION: Redemonstration of a subtle lucent lesion in the distal tibia, possibly representing a bone infarct. No displaced fracture. Additional imaging with CT scan or MRI should be considered for better visualization as these modalities are much more sensitive for detection of fracture or other underlying pathology.
== END 2022-12-04 10:44 | disposition home or self-care (01) ==
LOC: HO.HOSX 10:43
PROVIDERS: Visit Provider Physician Assistant
DX: M25.572 Pain in left ankle and joints of left foot (principal); M87.062 Idiopathic aseptic necrosis of left tibia
CPT/HCPCS: 73610

== ENCOUNTER 2022-12-04 13:33 | Outpatient (AMB) | payer OTHER, SELFPAY ==
--- NOTE | 2022-12-04 13:55 | MHC.OFFVIS ---
Intake Intake Visit Reasons: OV- LT foot pain w/xrays Intake Note: Dolores is a 5 year old female who presents today for a follow up for her left foot pain. Patient reports no pain or discomfort. Patient reports her left ankle feels better than before. Allergies lisinopril Allergy (Intermediate, Verified 12/04/22 13:56) Cough adhesive tape Allergy (Verified 12/04/22 13:56) Rash HPI OV- LT foot pain w/xrays HPI Details 42-year-old female who presents in the office today for a follow up of left foot pain. The patient reports no pain or discomfort while in the office today. She states her left ankle is better than before. [facility] Medical History (Updated 04/28/22 @ 15:11 by MOSES Vargas) Atypical squamous cells of undetermined significance (ASC-US) on cervical Pap smear Well woman exam Hyperparathyroidism Goiter Systemic lupus erythematosus Vitamin D deficiency Osteopenia Premature ovarian failure Surgical History Hx of section Hx of wisdom tooth extraction Family History Mother Thyroid disease Autoimmune disorder Brother Cancer Father Diabetes Social History Alcohol intake: current Alcohol intake frequency: holidays/special occasions only Patient Tobacco Use Status: Former Tobacco user Current occupational status: employed Current occupation: [employer] Female Reproductive History Menstrual Age of Menarche: 11 Review of Systems Const All systems reviewed & are unremarkable except as noted in HPI and below Physical Exam Const General: cooperative, healthy appearing and no acute distress Resp Effort & Inspection: normal respiratory effort and able to speak in complete sentences Cardio Rate: regular rate Peripheral pulses: Peripheral pulses 2+ throughout GI Palpation (GI): Soft to palpation Skin Lesions: no lesions Rashes: no rashes Extrem Other: Left foot: Normal to inspection. No ecchymosis, erythema, or edema. Patient is able to demonstrate dorsiflexion, plantar flexion, pronation and supination. Negative anterior drawer. Sensation intact. Pedal Pulse intact. 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 Mock is a 42-year-old female who presents in the office today for a follow up of left foot pain. The patient reports no pain or discomfort while in the office today. She states her left ankle is better than before. Left distal tibia bony infraction site is stable compared to imaging on 11/07/2021. She reports no pain in the left ankle while in the office today. Follow up will be PRN, or sooner if needed. Orders: Orders XR ankle LT min 3V 12/04/22 M25.579 - Pain in unspecified ankle and joints of unspecified foot Patient Instructions: Scribed for Elaina Adams PA-C by Amanda Pfeiffer director medical writing, on 12/04/2022 at 2:05 pm, EST. 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
== END 2022-12-04 14:06 | disposition home or self-care (01) ==
PROVIDERS: Visit Provider Physician Assistant
DX: M87.062 Idiopathic aseptic necrosis of left tibia (principal)
CPT/HCPCS: 99213

== ENCOUNTER 2023-01-02 15:01 | Outpatient (AMB) | payer OTHER, SELFPAY ==
--- NOTE | 2023-01-02 15:03 | MHC.OFFVIS ---
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 No complaints. Last Pap/HPV was negative in 11/07 Last Mammogram was BI-RADS 1 in 12/08 [facility] Medical History Atypical squamous cells of undetermined significance (ASC-US) on cervical Pap smear Well woman exam Hyperparathyroidism Goiter Systemic lupus erythematosus Vitamin D deficiency Osteopenia Premature ovarian failure Surgical History Hx of wisdom tooth extraction Hx of section Family History Mother Thyroid disease Autoimmune disorder Brother Cancer Father Diabetes Social History Household Members: Spouse and Children Housing: House Alcohol intake: current Alcohol intake frequency: holidays/special occasions only Patient Tobacco Use Status: Former Tobacco user Years Smoked: 20 Current occupational status: employed Current occupation: [employer] Sexual orientation: Straight/Heterosexual Gender identity: Female Female Reproductive History Menstrual Age of Menarche: 11 Total pregnancies: 2 Full term: 1 Number of Living Children: 2 Ab spontaneous: 1 Multiple births: 1 Date of last pap smear: 11/08/21 Date of Mammogram: 11/23/21 Review of Systems Const All systems reviewed & are unremarkable except as noted in HPI and below Card Reports as per HPI Resp Reports as per HPI GI Reports as per HPI and Reports no additional complaints Reports as per HPI Physical Exam Const General: cooperative, healthy appearing and comfortable Chest Chest palpation & inspection: normal inspection of the chest and normal palpation of entire chest wall Breast/axilla inspection: normal inspection of the breasts and normal inspection of the axillae Breast/axilla palpation: normal palpation of the breasts, normal palpation of the axillae and no axillary lymphadenopathy Resp Effort & Inspection: normal respiratory effort Auscultation: clear to auscultation bilaterally Percussion: percussion normal Cardio Palpation: normal PMI Rate: regular rate Rhythm: regular rhythm Heart sounds: no murmurs and no rubs Peripheral pulses: Peripheral pulses 2+ throughout GI Inspection: Yes normal to inspection Palpation (GI): Soft to palpation, nontender, no guarding, not rigid and No hepatosplenomegaly present Percussion: Yes normal to percussion Auscultation: normal bowel sounds Rectal Exam - Female: deferred General: Yes bladder normal to palpation External Female Exam: No lesion Speculum Exam - Vagina: normal appearance of the vagina, normal palpation, normal vaginal discharge and not erythematous Speculum Exam - Cervix: normal appearance of the cervix and normal palpation Bimanual exam- vagina & uterus: normal bimanual exam, normal palpation, uterine size normal, bladder normal to palpation, consistency normal and normal palpation Bimanual Exam- Adnexa, other: normal adnexae, no masses and no tenderness Assessment & Plan Assessment & Plan (1) Well woman exam: Comment: 01/30 ASCUS HPV negative 2015 ascus HPV negative 2016 ascus HPV negative 11/07 co testing negative Code(s): Z01.419 - Encounter for gynecological examination (general) (routine) without abnormal findings Plan: Cotesting not indicated this year. Mammogram ordered. Counseled the patient about the recommended dietary allowance of 1000 mg of Calcium & 600 IU of vitamin D. The patient was instructed to perform monthly self-breast exams and to schedule an annual exam in a year; All questions answered and the patient verbalized understanding. Instructed the patient to schedule annual exam in a year Orders: Orders MM screening mammo BI Today Z12.31 - Encounter for screening mammogram for malignant neoplasm of breast Coding Level of Care Code Est Pt Prev Care 40-64y(30842) Diagnoses Well woman exam Z01.419
[2023-01-02 15:16] VITALS: BP 128/76; BMI 30.6
== END 2023-01-02 15:30 | disposition home or self-care (01) ==
LOC: HO.HWS 15:01
PROVIDERS: PCP Family Medicine; Visit Provider Obstetrics & Gynecology
DX: Z01.419 Encounter for gynecological examination (general) (routine) without abnormal findings (principal)
CPT/HCPCS: 99396

== ENCOUNTER → 2023-01-02 15:01 | Outpatient (BNVA) | payer OTHER, SELFPAY | PROVIDERS: PCP Family Medicine; Visit Provider Obstetrics & Gynecology ==

== ENCOUNTER 2023-01-03 13:47 | Outpatient (REF) | payer OTHER, SELFPAY | END 2023-01-03 13:48 | disposition home or self-care (01) | LOC: HO.MAMMO 13:47 | PROVIDERS: Absent Provider Obstetrics & Gynecology; PCP Family Medicine; Visit Provider Family Medicine | DX: Z12.31 Encounter for screening mammogram for malignant neoplasm of breast (principal) | CPT/HCPCS: 77063; 77067 ==

== ENCOUNTER → 2023-01-03 14:00 | Outpatient (BNV) | payer OTHER, SELFPAY | PROVIDERS: Absent Provider Obstetrics & Gynecology; PCP Family Medicine; Visit Provider Radiology Diagnostic Radiology | DX: Z12.31 Encounter for screening mammogram for malignant neoplasm of breast (principal) | CPT/HCPCS: 77063; 77067 ==

== ENCOUNTER 2023-02-14 14:39 | Outpatient (AMB) | payer OTHER, SELFPAY ==
--- NOTE | 2023-02-14 14:59 | A.OFFVIS_ITS ---
Intake Vital Signs 02/14/23 15:07 Height 5 ft 3 in Weight 169 lb 15.622 oz BMI 30.1 BP 120/84 Blood Pressure Location Lt brachial Position Sitting Pulse 53 Pulse Source Pulse Oximeter Intake Visit Reasons: f/u premature ovarian failure-CONFIRMED Intake Note: Patient present today for follow up to premature ovarian failure. Marketing Sales Consultant Required: No Accompanied by: Self / Same As Patient Allergies lisinopril Allergy (Intermediate, Verified 02/14/23 15:13) Cough adhesive tape Allergy (Verified 02/14/23 15:13) Rash HPI HPI Comments History of Present Illness Details 40 YO Female with a PMHx Premature Ovarian Failure as well as SLE who is seen in F/U for premature ovarian failure. She reports her menses stopped entirely in approximately 2017. She recently underwent evaluation by her PCP which revealed very high FSH levels with undetectable estradiol levels. She was started on 250 mcg transdermal estrogen patch with 12 days of progesterone per month. After her initial visit with me we repeated her workup, which confirmed premature ovarian failure. She was changed to 2 mg of micronized 17beta estradiol orally daily, with 10 mg of medroxyprogesterone acetate for the first 12 days of each month. She has been poorly compliant with this, often missing doses and not taking this completely on schedule. She has twin children who she conceived spontaneously. She is not interested in additional fertility. She reports having a bone density completed in the past, and that this revealed osteopenia. Repeat BMD revealed low bone density in the hip. She did undergo labs which revealed evidence of secondary hyperparathyroidism with elevated PTH, low normal Calcium, and low Vitamin D. She remains on Calcium and Vitamin D. Repeat labs now with Calcium and PTH WNL. Workup was negative for mai's. Otherwise, she reports feeling well with no complaints today. DXA: 03/31/2021 FINDINGS: AP SPINE L1-L4: Current: BMD 1.084 g/cm2, Z-score -1.2, T-score -0.8, normal, 3.3% increase from previous, 9.4% increase from baseline (<5% change is not significant). Prior: BMD 1.049 g/cm2. Baseline: BMD 0.991 g/cm2. LEFT FEMUR, NECK: Current: BMD 0.722 g/cm2, Z-score -2.1, T-score -2.3, osteopenia. Prior: BMD 0.772 g/cm2. Baseline: BMD 0.829 g/cm2. LEFT FEMUR, TOTAL: Current: BMD 0.804 g/cm2, Z-score -1.7, T-score -1.6, osteopenia, 2.0% decrease from previous, 1.3% decrease from baseline (<5% change is not significant). Prior: BMD 0.820 g/cm2. Baseline: BMD 0.815 g/cm2. LEFT FOREARM RADIUS 33%: BMD 0.846 g/cm2, Z-score -0.3, T-score -0.3, normal. Prior: Not previously measured. IDENTIFIED RISK FACTORS: Early menopause, secondary osteoporosis, osteoporosis, renal, hyperparathyroidism, glucocorticoids (chronic). Labs: Laboratory Tests 09/14/21 01/23/22 01/23/22 12:05 08:56 08:56 Sodium 140 Potassium 4.2 Creatinine 1.13 Estimated GFR 53 25-OH Vitamin D To alaina 27.7 TSH 3.74 Free T4 1.02 FSH 18.0 Luteinizing Hormon e 7.6 Sex Hormone Bind G lob 77 PTH Intact 48 Calcium (PTH Intac t) 9.3 PFSH Medical History Atypical squamous cells of undetermined significance (ASC-US) on cervical Pap smear Well woman exam Hyperparathyroidism Goiter Systemic lupus erythematosus Vitamin D deficiency Osteopenia Premature ovarian failure Surgical History Hx of wisdom tooth extraction Hx of section Family History Mother Thyroid disease Autoimmune disorder Brother Cancer Father Diabetes Social History Household Members: Spouse and Children Housing: House Alcohol intake: current Alcohol intake frequency: holidays/special occasions only Patient Tobacco Use Status: Former Tobacco user Years Smoked: 20 Current occupational status: employed Current occupation: [employer] Sexual orientation: Straight/Heterosexual Gender identity: Female Female Reproductive History Menstrual Age of Menarche: 11 Physical Exam Vital Signs: Last Vital Signs Pulse 53 02/14/23 15:07 BP 120/84 02/14/23 15:07 BMI result Body Mass Index 30.1 Assessment & Plan Assessment & Plan (1) Premature ovarian failure: Code(s): E28.39 - Other primary ovarian failure Plan This is a 42-year-old female with a history of premature ovarian failure currently on estrogen/progesterone replacement. The plan is that the patient follow-up with geophysical laboratory chief regarding hormone replacement. Coding Level of Care Code Est Pt Level 3 (99979) Diagnoses Premature ovarian failure E28.39
[2023-02-14 15:07] VITALS: BP 120/84; PULSE 53; BMI 30.1
== END 2023-02-14 15:30 | disposition home or self-care (01) ==
PROVIDERS: PCP Family Medicine; Visit Provider Internal Medicine Endocrinology, Diabetes & Metabolism
DX: E28.39 Other primary ovarian failure (principal)
CPT/HCPCS: 99213

== ENCOUNTER → 2023-02-14 14:39 | Outpatient (BNVA) | payer OTHER, SELFPAY | PROVIDERS: Visit Provider Internal Medicine Endocrinology, Diabetes & Metabolism ==

== ENCOUNTER 2023-04-02 14:30 | Outpatient (RCR) | payer OTHER, SELFPAY | END 2023-05-09 08:38 | disposition home or self-care (01) | LOC: HO.OT 14:30 | PROVIDERS: PCP Family Medicine; Visit Provider Family Medicine | DX: M25.532 Pain in left wrist (principal) | CPT/HCPCS: 97033; 97110; 97166 ==

== ENCOUNTER 2023-04-11 08:45 | Outpatient (REF) | payer OTHER, SELFPAY ==
--- NOTE | ~2023-04-11 | MM_ITS ---
EXAMINATION: BONE DENSITOMETRY CLINICAL INDICATION: Osteoporosis. Previously on chronic systemic steroid for SLE.. COMPARISON: Previous BD dated 03/31/2021 and baseline BD dated 10/14/2013. TECHNIQUE: Using a [employer] DXA System (software version: 13.1) manufactured by [employer], dual-energy x-ray absorptiometry was performed of the lumbar spine and left hip. The images are of good technical quality. Summary results are attached. FINDINGS: LEFT FEMUR, NECK: Current: BMD 0.827 g/cm2, Z-score -1.3, T-score -1.5, osteopenia. Prior: BMD 0.722 g/cm2. Baseline: BMD 0.829 g/cm2. LEFT FEMUR, TOTAL: Current: BMD 0.858 g/cm2, Z-score -1.2, T-score -1.2, osteopenia, 6.7% increase from previous, 5.3% increase from baseline (<5% change is not significant). Prior: BMD 0.804 g/cm2. Baseline: BMD 0.815 g/cm2. AP SPINE L1-L4: Current: BMD 1.064 g/cm2, Z-score -1.4, T-score -1.0, normal, 1.8% decrease from previous, 7.4% increase from baseline (<5% change is not significant). Prior: BMD 1.084 g/cm2. Baseline: BMD 0.991 g/cm2. IDENTIFIED RISK FACTORS: Early menopause, glucocorticoids (chronic), osteoporosis, secondary osteoporosis. HISTORY OF FRACTURE: None listed. MEDICATIONS: Calcium or multivitamin. Vitamin D, fluoride, ERT/SERMS. MM/XR DEXA axial skeleton IMPRESSION: 1. DIAGNOSIS: Osteopenia based on the lowest T-score value of -1.5 in the femoral neck applying World Health Organization criteria. 2. 10-YEAR FRACTURE RISK PREDICTION, FRAX: Not performed in this patient on estrogen or bone building treatments. 3. Treatment Recommendations: NOF guidelines recommend consideration for treatment in postmenopausal women and men age 50 and older presenting with the following: -A hip or vertebral (clinical or morphometric) fracture. -T-score less than or equal to -2.5 at the femoral neck or spine after appropriate evaluation to exclude secondary causes. -Low bone mass at the hip or spine and a 10-year fracture probability by FRAX of greater than or equal to 3% for hip fracture or greater than or equal to 20% for major osteoporotic fracture based on the [place] adapted WHO algorithm. 4. Other Recommendations: All treatment decisions require clinical judgment and consideration of individual patient factors, including patient preferences, comorbidities, previous drug use, risk factors not captured in the FRAX model (e.g. frailty, falls, vitamin D deficiency, increased bone turnover, interval significant decline in bone density) and possible under or overestimation of fracture risk by FRAX. Additional medical evaluation for secondary cause of low bone mineral density may be appropriate. FUTURE SCAN RECOMMENDATION: People with diagnosed cases of osteoporosis or at high risk for fracture should have regular bone mineral density tests. For patients eligible for Medicare, routine testing is allowed once every 2 years. The testing frequency can be increased to one year for patients who have rapidly progressing disease, those who are receiving or discontinuing medical therapy to restore bone mass, or have additional risk factors.
== END 2023-04-11 08:46 | disposition home or self-care (01) ==
LOC: HO.MAMMO 08:45
PROVIDERS: PCP Family Medicine; Visit Provider Family Medicine
DX: Z13.820 Encounter for screening for osteoporosis (principal); M85.80 Other specified disorders of bone density and structure, unspecified site; Z78.0 Asymptomatic menopausal state
CPT/HCPCS: 77080

== ENCOUNTER 2023-06-04 09:04 | Emergency (ER) | payer OTHER, SELFPAY ==
--- NOTE | ~2023-06-04 | XR_ITS ---
EXAMINATION: XR ANKLE, LEFT CLINICAL INFORMATION: Left ankle swelling COMPARISON: Left ankle 12/04/2022 and 10/18/2021 MRI right knee 02/16/2017 TECHNIQUE: AP, lateral, and mortise views of the left ankle. FINDINGS: No acute fracture. Soft tissue swelling is present laterally. Alignment is anatomic. No erosions. Joint spaces are maintained. Again seen is a sclerotic lesion in the distal tibial metaphysis unchanged compared to 10/18/2021 consistent with a remote bone infarct. Multiple bone infarcts were seen on the prior MRI knee from 02/16/2017 XR/XR ankle LT min 3V IMPRESSION: 1. No acute fracture or dislocation. 2. Soft tissue swelling is present laterally. 3. Unchanged sclerotic lesion in the distal tibial metaphysis consistent with a remote bone infarct.
--- NOTE | ~2023-06-04 | US_ITS ---
EXAMINATION: US VENOUS ULTRASOUND WITH DOPPLER LOWER EXTREMITY, LEFT CLINICAL INFORMATION: Left lower extremity swelling COMPARISON: None available. TECHNIQUE: Ultrasound of the deep veins is performed from the hip to the calf with compression sonography and color and pulse Doppler assessment. Spectral analysis with color-flow imaging is performed. FINDINGS: There is normal venous compression and respiratory variation and augmented flow. The visualized common femoral vein, superficial femoral vein, profunda femoral vein, popliteal vein, and the trifurcation region shows no evidence of deep venous thrombosis. There is no significant popliteal fossa cyst. If the patient's symptoms persist, followup ultrasound in 5 days 7 days might be of value to exclude proximal propagation from a non-visualized calf vein. US/US venous duplex LE LT IMPRESSION: No DVT demonstrated in the left lower extremity.
[2023-06-04 09:13] VITALS: BP 141/90; PULSE 96; RESP 16; TEMP 36.3; O2SAT 99; BMI 30.1
--- NOTE | 2023-06-04 09:55 | ED_ITS ---
HPI - General Adult General Chief complaint: Extremity Injury, Lower Stated complaint: l ankle swelling no inj Time Seen by Provider: 06/04/23 09:45 Source: patient and family Mode of arrival: ambulatory Limitations: no limitations History of Present Illness HPI narrative: This is a 42-year-old female history of obesity, hyperparathyroidism, goiter, premature ovarian failure, systemic lupus erythematous presenting to the emergency department with atraumatic left ankle pain and swelling that started on Sunday and has been progressively worsening ever since. Pain is worse with movement, weight-bearing better at rest. Patient reports she is barely able to ambulate she has been using a cane for ambulation. No history of DVT or PE. Patient denies injury to affected area. She does report she has been on her feet a lot lately. Denies chest pain, shortness of breath, fevers, chills, nausea, vomiting, abdominal pain, headache, vision changes, dizziness and weakness. Patient also needs refil for lasix 80mg po BID Related Data Home Medications Medication Instructions Recorded Confirmed furosemide 80 mg tablet 80 mg PO DAILY 11/11/20 08/25/22 losartan 100 mg tablet 100 mg PO DAILY 11/11/20 08/25/22 magnesium 250 mg tablet 250 mg PO DAILY 11/11/20 08/25/22 melatonin 1 mg tablet 1 mg PO BEDTIME PRN 11/11/20 08/25/22 valacyclovir 500 mg tablet 500 mg PO DAILY 11/11/20 08/25/22 omeprazole 20 mg capsule,delayed 20 mg PO DAILY 09/15/21 08/25/22 release calcium-ergocalciferol (vit D2) cap PO 04/28/22 08/25/22 capsule ferrous sulfate 325 mg (65 mg 325 mg PO DAILY 04/28/22 08/25/22 iron) tablet tacrolimus 1 mg tablet,extended 2 mg PO DAILY 02/14/23 release 24 hr (Envarsus XR) Previous Rx's Medication Instructions Recorded estradiol 2 mg tablet 2 mg PO DAILY 90 days #90 tabs 10/31/21 medroxyprogesterone 10 mg tablet See Rx Instructions PO DAILY #12 10/31/21 tabs cholecalciferol (vitamin D3) 50 50 mcg PO DAILY 30 days #30 caps 02/27/22 mcg (2,000 unit) capsule (D3-2000) calcium citrate 200 mg (950 mg) 200 mg PO BID #180 tabs 01/16/23 tablet acetaminophen 325 mg capsule 650 mg (2 x 325 mg) PO Q6H PRN 06/04/23 (Tylenol) pain #30 caps furosemide 80 mg tablet 80 mg PO BID #30 tabs 06/04/23 morphine 15 mg immediate release 15 mg PO Q6H PRN pain 5 days #10 06/04/23 tablet tabs prednisone 50 mg tablet 50 mg PO DAILY 5 days #5 tabs 06/04/23 Allergies Allergy/AdvReac Type Severity Reaction Status Date / Time lisinopril Allergy Intermediate Cough Verified 06/04/23 09:13 adhesive tape Allergy Rash Verified 06/04/23 09:13 Review of Systems 2 Review of Systems: Yes all other systems are reviewed and are negative [facility] Past Medical History Attestation statement: The following information was validated with the patient. Source: old records reviewed and nursing notes reviewed Medical History Atypical squamous cells of undetermined significance (ASC-US) on cervical Pap smear Well woman exam Hyperparathyroidism Goiter Systemic lupus erythematosus Vitamin D deficiency Osteopenia Premature ovarian failure Surgical History Hx of wisdom tooth extraction Hx of section Family History Family History Mother Thyroid disease Autoimmune disorder Brother Cancer Father Diabetes Social History Social History Household Members: Spouse and Children Housing: House Alcohol intake: current Alcohol intake frequency: holidays/special occasions only Patient Tobacco Use Status: Former Tobacco user Years Smoked: 20 Smoked in Last 30 Days: No Substance Use Type: Marijuana Substance Use Frequency: Occasionally Advance Directives: No Advance Directives Information Provided: No Current occupational status: employed Current occupation: [employer] Sexual orientation: Straight/Heterosexual Gender identity: Female Physical Exam ED Vital Signs: Vital Signs - 24 hr 06/04/23 09:13 06/04/23 10:12 Temperature 97.3 F Pulse Rate 96 76 Respiratory Rate 16 18 Blood Pressure 141/90 H 140/74 H Pulse Oximetry 99 98 Oxygen Delivery Method Room Air Room Air BMI result Body Mass Index 30.1 vss Appearance: Alert.? Oriented X3.? No acute distress.? Head: Normocephalic, atraumatic, no step-offs or deformities Eyes: Pupils equal, round and reactive to light.? Neck: Normal inspection.? Neck supple.? CVS: Normal heart rate and rhythm.? Pulses normal.? Respiratory: No respiratory distress.? Breath sounds normal.?? Skin: Skin warm and dry.? Normal skin color.? Normal skin turgor.? Extremities: No lower extremity edema.? No calf ttp. 5/5 strength to bilateral upper extremities and right lower extremity, limited strength exam to LLE due to pain. LLE w/ 1 + pitting edema from the knee down. 2+ DP,AT,PT pulses to b/l LE. + significant swelling overlying medial and lateral malleolous and difficulty w/ ROM secondary to pain. Neuro: Oriented X 3.? No motor deficit.? No sensory deficit. Course Reevaluation(s) Reevaluation #1: CBC with white count no left shift. This is likely reactive secondary to inflammatory state/gout/pseudogout. Unlikely infectious in origin. Elevated BUN and creatinine appears to be around patient's baseline. Patient is followed by afternoon nanny. Uric acid 6.7, likely gout. Ultrasound left lower extremity pending. X-ray pending. Time: 10:52 Reevaluation #2: X-ray of left ankle no acute fracture dislocation soft tissue swelling is present laterally unchanged sclerotic lesion in the distal tibial metaphysis consistent with remote bone infarct, this appears to be old no acute findings. Will have her follow-up with the orthopedic doctor. DVT study negative. No signs of clot. At this time patient to be discharged home with prednisone, morphine, Tylenol. Will have her follow-up with ortho, Rheumatology and primary care provider. Educated patient on diagnosis and treatment plan, answered all question, patient verbalizes understanding. At this time patient will be discharged home, advised to return with new or worsening symptoms. Educated on worrisome signs and symptoms and when to return. At this time I feel comfortable discharge home. Time: 11:28 Medications Administered Discontinued Medications Generic Name Dose Route Start Last Admin Trade Name Freq PRN Reason Stop Dose Admin Acetaminophen 975 mg 06/04/23 10:54 06/04/23 11:11 Acetaminophen 325 Mg Tablet PO 06/04/23 10:55 975 mg ONCE ONE Administration Furosemide 80 mg 06/04/23 09:57 06/04/23 10:10 Furosemide 40 Mg Tablet PO 06/04/23 09:58 80 mg ONCE ONE Administration Protocol Morphine Sulfate 15 mg 06/04/23 09:57 06/04/23 10:11 Morphine Sulfate Immed Release 15 Mg Tablet PO 06/04/23 09:58 15 mg ONCE ONE Administration Medical Decision Making Medical Decision Making [facility] Narrative: 42-year-old female presents with left ankle pain and swelling, atraumatic since Sunday worsening. On exam there is evidence swelling to left ankle. Palpable pulses. Normal sensation. Discomfort with range of motion of left ankle. History and physical exam concerning for gout versus pseudogout. Unlikely arterial or venous occlusion. Unlikely septic joint. No signs of cellulitis. Unlikely fracture, dislocation or traumatic injury. There is no signs of neurovascular compromise or acute threat to limb. Plan at this time will obtain x-ray, venous duplex and basic labs. Differential Diagnosis Differential Diagnoses: The differential diagnosis associated with the presentation includes History and physical exam concerning for gout versus pseudogout. Unlikely arterial or venous occlusion. Unlikely septic joint. No signs of cellulitis. Unlikely fracture, dislocation or traumatic injury. Admission/Observation Consideration of admission/observation: Escalation of care including admission/observation considered Lab Data MDM Lab Attestation statement: I reviewed the patient's lab results. 06/04/23 10:07 06/04/23 10:07 Labs: Lab Results 06/04/23 06/04/23 Range/Units 10:07 10:54 WBC 12.1 H (4.8-10.8) X10*3/uL RBC 3.31 L (4.20-5.50) X10*6/uL Hgb 10.8 L (12.0-16.0) g/dl Hct 31.8 L (37.0-47.0) % MCV 96.1 (80.0-98.0) fL MCH 32.6 (27.0-33.0) pg MCHC 34.0 (31.0-35.0) g/dl RDW 13.4 (11.0-16.0) % Plt Count 306 (160-400) X10*3/uL MPV 9.1 L (9.4-12.3) fL Immature Gran % (Auto) 0.4 (0.0-0.4) % Neut % (Auto) 76.1 H (45-73) % Lymph % (Auto) 16.0 L (20-40) % Ellsworth % (Auto) 5.6 (2-11) % Eos % (Auto) 1.5 (0-4) % Baso % (Auto) 0.4 (0-2) % Lymph # (Auto) 1.9 (1.2-4.9) X10*3/uL Ell[place] # (Auto) 0.7 (0.1-1.2) X10*3/uL Eos # (Auto) 0.2 (0.0-0.4) X10*3/uL Baso # (Auto) 0.1 (0.0-0.2) X10*3/uL Abs Immat Gran (auto) 0.05 H (0.00-0.03) X10*3/uL Absolute Neuts (auto) 9.2 H (2.0-8.3) x10*3/uL Absolute Nucleated RBC 0.000 (0.0-0.012) X10*3/uL Nucleated RBC % (auto) 0.0 (0.0-0.2) /100WBC PT 12.6 (11.1-13.3) SEC INR 1.0 (0.9-1.1) Sodium 139 (135-145) mmol/L Potassium 4.2 (3.3-5.1) mmol/L Chloride 110 H (96-108) mmol/L Carbon Dioxide 20 L (22-29) mmol/L Anion Gap 13 (12-20) BUN 23 H (9-16) mg/dL Creatinine 1.48 H (0.5-1.4) mg/dL Estim Creat Clear Calc 49.1 Estimated GFR 39 Random Glucose 98 (60-115) mg/dL Uric Acid 6.7 H (2.4-5.7) mg/dL Calcium 8.9 (8.4-10.2) mg/dL Total Bilirubin 0.4 (0.0-1.0) mg/dL AST 16 (5-31) U/L ALT 13 (0-31) U/L Alkaline Phosphatase 68 (39-117) U/L Total Protein 6.9 (6.5-8.0) g/dL Albumin 3.4 L (3.5-5.0) g/dL Independent Interpretation I performed an independent interpretation of an: Plain X-Ray ( XR/XR ankle LT min 3V IMPRESSION: 1. No acute fracture or dislocation. 2. Soft tissue swelling is present laterally. 3. Unchanged sclerotic lesion in the distal tibial metaphysis consistent with a remote bone infarct. ) and Ultrasound (US/US venous duplex LE LT IMPRESSION: No DVT demonstrated in the left lower extremity.) Radiology Impression Discussion of test interpretation with radiology: I have reviewed the radiologist's reading. External Record Review External record reviewed: Inpatient record, Office record, Outpatient record, Prior outpatient labs, Prior outpatient radiology, Primary care record and Outside ED record Prescription Management I considered prescription management with: Pain Medication and Other (prednisoine ) Critical Care Time Critical Care Time Critical Care Time: Yes Total Critical Care Time: 35 Attestation: I attest to this time spent taking care of the patient, obtaining history, physical, reviewing labs, imaging, Discharge Plan Discharge Clinical Impression: Acute gout of left ankle, Medication refill, 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 If you were prescribed antibiotics today, it is important that you take your medication to their entirety, do not skip any doses, do not finish them early. Follow-up with your primary care provider this week. Return to the emergency department with new or worsening symptoms. Such as fevers, chills, chest pain, shortness of breath, nausea, vomiting, dizziness, headache, vision changes, lethargy In case of emergency call 911 Follow up with rheumatology ALFREDA Follow up with ortho to discuss bone infarct A narcotic has been sent to your pharmacy please take this as prescribed. Do not take more than the prescribed dose. Narcotic medications can cause addiction. Please do not mix them with alcohol. Do not take them while driving or operating machinery. Do not take them with any other narcotics. Do not share them with friends or family. They can cause constipation. Take them only for severe pain. XR/XR ankle LT min 3V IMPRESSION: 1. No acute fracture or dislocation. 2. Soft tissue swelling is present laterally. 3. Unchanged sclerotic lesion in the distal tibial metaphysis consistent with a remote bone infarct. US/US venous duplex LE LT IMPRESSION: No DVT demonstrated in the left lower extremity. Feel better! Prescriptions: New furosemide 80 mg tablet 80 mg PO BID Qty: 30 0RF prednisone 50 mg tablet 50 mg PO DAILY 5 Days Qty: 5 0RF morphine 15 mg tablet 15 mg PO Q6H PRN (Reason: pain) 5 Days Qty: 10 0RF Rx Instructions: Partial Fill upon patient request. acetaminophen [Tylenol] 325 mg capsule 650 mg PO Q6H PRN (Reason: pain) Qty: 30 0RF No Action estradiol 2 mg tablet 2 mg PO DAILY 90 Days Qty: 90 11RF medroxyprogesterone 10 mg tablet See Rx Instructions PO DAILY Qty: 12 11RF Rx Instructions: Take 1 tab daily for the first 12 days of each month. PO daily; cholecalciferol (vitamin D3) [D3-2000] 50 mcg (2,000 unit) capsule 50 mcg PO DAILY 30 Days Qty: 30 11RF calcium citrate 200 mg (950 mg) tablet 200 mg PO BID Qty: 180 3RF magnesium 250 mg tablet 250 mg PO DAILY valacyclovir 500 mg tablet 500 mg PO DAILY losartan 100 mg tablet 100 mg PO DAILY furosemide 80 mg tablet 80 mg PO DAILY melatonin 1 mg tablet 1 mg PO BEDTIME PRN omeprazole 20 mg capsule,delayed release(DR/EC) 20 mg PO DAILY Envarsus XR 1 mg tablet extended release 24 hr 2 mg PO DAILY Rx Instructions: must be taken on empty stomach ferrous sulfate 325 mg (65 mg iron) tablet 325 mg PO DAILY calcium-vitamin D2 Capsule PO Referrals: [facility] [Provider Group] - 2 days Mayra Santos MD [Primary Care Provider] - 2 days Stand Alone Forms: Work/School Release
[2023-06-04] MEDS: Furosemide 40 MG TABLET 80 MG PO (10:10)
[2023-06-04] MEDS: Morphine Sulfate Immed Release 15 MG TABLET PO (10:11)
[2023-06-04 10:12] VITALS: BP 140/74; PULSE 76; RESP 18; O2SAT 98
[2023-06-04 10:12] LABS: MANUAL DIFF FLAG NO
[2023-06-04 10:13] LABS: Basophils Absolute Auto 0.1 X10*3/uL (0.0-0.2); Basophils Percent Auto 0.4 % (0-2); Eosinophils Absolute Auto 0.2 X10*3/uL (0.0-0.4); Eosinophils Percent Auto 1.5 % (0-4); Hematocrit 31.8 % (37.0-47.0); Hemoglobin 10.8 g/dl (12.0-16.0); Imm Gran Abs Auto 0.05 X10*3/uL (0.00-0.03); Imm Gran Pct Auto 0.4 % (0.0-0.4); Lymphocytes Absolute Auto 1.9 X10*3/uL (1.2-4.9); Mean Corpuscular Hemoglobin 32.6 pg (27.0-33.0); Mean Corpuscular Volume 96.1 fL (80.0-98.0); Mean Platelet Volume 9.1 fL (9.4-12.3); Monocytes Absolute Auto 0.7 X10*3/uL (0.1-1.2); Monocytes Percent Auto 5.6 % (2-11); Neutrophils Absolute Auto 9.2 x10*3/uL (2.0-8.3); Neutrophils Percent Auto 76.1 % (45-73); Platelet Count 306 X10*3/uL (160-400); Red Blood Count 3.31 X10*6/uL (4.20-5.50); Red Cell Distribution Width 13.4 % (11.0-16.0); White Blood Count 12.1 X10*3/uL (4.8-10.8)
[2023-06-04 10:33] LABS: Alanine Aminotransferase 13 U/L (0-31); Albumin Level 3.4 g/dL (3.5-5.0); Alkaline Phosphatase 68 U/L (39-117); Anion Gap 13 (12-20); Aspartate Amino Transferase 16 U/L (5-31); Bilirubin Total 0.4 mg/dL (0.0-1.0); Blood Urea Nitrogen 23 mg/dL (9-16); Calcium 8.9 mg/dL (8.4-10.2); Carbon Dioxide 20 mmol/L (22-29); Chloride 110 mmol/L (96-108); Creatinine Clr Calc Pharmacy 49.1; Estimated Glomerular Filt Rate 39; Glucose Random 98 mg/dL (60-115); Potassium 4.2 mmol/L (3.3-5.1); Sodium 139 mmol/L (135-145); Total Protein 6.9 g/dL (6.5-8.0); Uric Acid 6.7 mg/dL (2.4-5.7)
[2023-06-04] MEDS: Acetaminophen 325 MG TABLET 975 MG PO (11:11)
[2023-06-04 11:16] LABS: Prothrombin Time 12.6 SEC (11.1-13.3)
[2023-06-04 12:02] VITALS: BP 133/68; PULSE 82; RESP 16; TEMP 36.1; O2SAT 100
== END 2023-06-04 12:04 | disposition home or self-care (01) ==
PROVIDERS: Physician Assistant; Emergency Provider Emergency Medicine; PCP Family Medicine
DX: M10.9 Gout, unspecified (principal); R93.6 Abnormal findings on diagnostic imaging of limbs; Z76.0 Encounter for issue of repeat prescription; M79.89 Other specified soft tissue disorders; M32.9 Systemic lupus erythematosus, unspecified; E21.3 Hyperparathyroidism, unspecified; E04.9 Nontoxic goiter, unspecified; E28.39 Other primary ovarian failure; E66.9 Obesity, unspecified
CPT/HCPCS: 36415; 73610; 80053; 84550; 85025; 85610; 93971; 99284

== ENCOUNTER 2023-07-10 07:45 | Outpatient (REF) | payer OTHER, SELFPAY ==
--- NOTE | 2023-07-10 07:49 | EMG_ITS ---
Left median and ulnar motor and sensory studies were performed. Left radial sensory and median and lateral antecubital sensory studies were performed and paraspinal muscles were tested with a needle. IMPRESSION: Mild left median neuropathy across carpal tunnel. MD SHERMAN Dudley/RANCHO / [phone]
== END 2023-07-10 07:46 | disposition home or self-care (01) ==
LOC: HO.NEURO 07:45
PROVIDERS: PCP Family Medicine; Visit Provider Family Medicine
DX: M25.532 Pain in left wrist (principal); G60.8 Other hereditary and idiopathic neuropathies
CPT/HCPCS: 95886; 95910

== ENCOUNTER 2023-10-16 18:52 | Outpatient (REF) | payer OTHER, SELFPAY ==
[2023-10-18 09:28] LABS: HPV mRNA E6/E7 Not Detected (Not Detected)
== END 2023-10-16 18:53 | disposition home or self-care (01) ==
LOC: HO.HHCLNP 18:52
PROVIDERS: Visit Provider Advanced Practice Midwife
DX: Z12.4 Encounter for screening for malignant neoplasm of cervix (principal)
CPT/HCPCS: 36415; 87624; 88175

== ENCOUNTER 2023-11-02 12:56 | Outpatient (REF) | payer BC, SELFPAY ==
--- NOTE | ~2023-11-02 | US_ITS ---
EXAMINATION: US PELVIS CLINICAL INFORMATION: Left lower quadrant, pelvic and perineal pain; the last menstrual period was 10/19/2023. COMPARISON: None available. TECHNIQUE: Ultrasound of the pelvis is performed using both transabdominal and transvaginal transducers along with Doppler. Transvaginal imaging is performed due to inadequate visualization transabdominally. FINDINGS: Uterus: The uterus is anteverted and measures 8.2 x 2 0.3, 0.6 cm. The double wall endometrial thickness is 4 mm. The uterus is smooth in contour and has normal myometrial echogenicity. No visible fibroid. Adnexa: The right ovary is not visualized. The left ovary is normal in size and echotexture, measuring 1.6 x 0.8 x 1.3 cm. No adnexal mass is seen. There is no free fluid within the cul-de-sac. US/US pelvic and transvaginal IMPRESSION: The right ovary is not visualized. The examination is otherwise unremarkable.
== END 2023-11-02 12:57 | disposition home or self-care (01) ==
LOC: HO.US 12:56
PROVIDERS: PCP Family Medicine; Visit Provider Advanced Practice Midwife
DX: R10.2 Pelvic and perineal pain (principal); R10.32 Left lower quadrant pain
CPT/HCPCS: 76830; 76856

== ENCOUNTER → 2024-01-07 15:00 | Outpatient (BNV) | payer BC, SELFPAY | PROVIDERS: PCP Family Medicine; Visit Provider Internal Medicine | DX: Z12.31 Encounter for screening mammogram for malignant neoplasm of breast (principal) | CPT/HCPCS: 77063; 77067 ==

== ENCOUNTER 2024-01-07 15:01 | Outpatient (REF) | payer BC, SELFPAY ==
--- NOTE | ~2024-01-07 | MM_ITS ---
EXAMINATION: MM SCREENING DIGITAL BREAST TOMOSYNTHESIS, BILATERAL CLINICAL INFORMATION: Screening. Asymptomatic. COMPARISON: Mammography: Comparison is made with available priors TECHNIQUE: Digital breast mammography with tomosynthesis is performed in both the craniocaudal and mediolateral oblique views along with computer-aided detection (CAD). FINDINGS: There are scattered areas of fibroglandular density (ACR BI-RADS breast composition Category b). There are no significant masses, abnormal calcifications, or other abnormalities. MM/MM tomosynthesis screening BI IMPRESSION: No mammographic evidence of malignancy. ASSESSMENT: BI-RADS BI-RADS 1 - Negative RECOMMENDATION: Routine annual mammography screening. 1 year F/U This examination should not preclude the clinical evaluation of a suspicious palpable abnormality. This patient's information was entered into a reminder system with a target due date for their next mammogram. Electronically signed by: Miguelina Rea DO 01/18/2024 10:47 AM EDT
== END 2024-01-07 15:02 | disposition home or self-care (01) ==
LOC: HO.MAMMO 15:01
PROVIDERS: PCP Family Medicine; Visit Provider Family Medicine
DX: Z12.31 Encounter for screening mammogram for malignant neoplasm of breast (principal)
CPT/HCPCS: 77063; 77067

== ENCOUNTER 2024-01-09 14:50 | Outpatient (AMB) | payer BC, SELFPAY ==
--- NOTE | 2024-01-09 14:52 | MHC.OFFVIS ---
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 Allergies lisinopril Allergy (Intermediate, Verified 01/09/24 15:00) Cough adhesive tape Allergy (Verified 06/04/23 09:13) Rash Medication List - Last Reconciled 01/09/24 by Amaris Acosta LPN acetaminophen (Tylenol) 650 mg (2 x 325 mg) PO Q6H PRN calcium citrate 200 mg PO BID cholecalciferol (vitamin D3) (D3-2000) 50 mcg PO DAILY 30 days estradiol 2 mg PO DAILY 90 days ferrous sulfate 325 mg PO DAILY furosemide 80 mg PO BID losartan 100 mg PO DAILY magnesium 250 mg PO DAILY omeprazole 20 mg PO DAILY tacrolimus XR (Envarsus XR) 2 mg PO DAILY valacyclovir 500 mg PO DAILY Is last menstrual period known: Yes (november) Post menopausal: No Patient : No Do you need a note to return to daycare/school/sports/work: No HPI Comments Details: Presenting for annual exam. No complaints. Last Pap/HPV was negative in 11/07 Last Mammogram was done in 01/09, the results still pending [facility] Medical History Atypical squamous cells of undetermined significance (ASC-US) on cervical Pap smear Well woman exam Hyperparathyroidism Goiter Systemic lupus erythematosus Vitamin D deficiency Osteopenia Premature ovarian failure Surgical History Hx of wisdom tooth extraction Hx of section Family History Mother Thyroid disease Autoimmune disorder Brother Cancer Father Diabetes Social History Household Members: Spouse and Children Housing: House Alcohol intake: current Alcohol intake frequency: holidays/special occasions only Patient Tobacco Use Status: Former Tobacco user Years Smoked: 20 Substance Use Type: Marijuana Current occupational status: employed Current occupation: [employer] Sexual orientation: Straight/Heterosexual Gender identity: Female Female Reproductive History Menstrual Age of Menarche: 11 Duration of menses: 3-5 days Total pregnancies: 0 History of abnormal pap smear: Yes History of STI: No Date of Mammogram: 01/07/24 Review of Systems Const All systems reviewed & are unremarkable except as noted in HPI and below Card Reports as per HPI Resp Reports as per HPI GI Reports as per HPI and Reports no additional complaints Reports as per HPI Physical Exam Vital Signs: Last Vital Signs BP 110/74 01/09/24 14:53 BMI result Body Mass Index 29.4 Const General: cooperative, healthy appearing and comfortable Chest Chest palpation & inspection: normal inspection of the chest and normal palpation of entire chest wall Breast/axilla inspection: normal inspection of the breasts and normal inspection of the axillae Breast/axilla palpation: normal palpation of the breasts, normal palpation of the axillae and no axillary lymphadenopathy Resp Effort & Inspection: normal respiratory effort Auscultation: clear to auscultation bilaterally Percussion: percussion normal Cardio Palpation: normal PMI Rate: regular rate Rhythm: regular rhythm Heart sounds: no murmurs and no rubs Peripheral pulses: Peripheral pulses 2+ throughout GI Inspection: Yes normal to inspection Palpation (GI): Soft to palpation, nontender, no guarding, not rigid and No hepatosplenomegaly present Percussion: Yes normal to percussion Auscultation: normal bowel sounds Rectal Exam - Female: deferred General: Yes bladder normal to palpation External Female Exam: No lesion Speculum Exam - Vagina: normal appearance of the vagina, normal palpation, normal vaginal discharge and not erythematous Speculum Exam - Cervix: normal appearance of the cervix and normal palpation Bimanual exam- vagina & uterus: normal bimanual exam, normal palpation, uterine size normal, bladder normal to palpation, consistency normal and normal palpation Bimanual Exam- Adnexa, other: normal adnexae, no masses and no tenderness Assessment & Plan Assessment & Plan (1) Well woman exam: Comment: 01/30 ASCUS HPV negative 2015 ascus HPV negative 2016 ascus HPV negative 11/07 co testing negative Code(s): Z01.419 - Encounter for gynecological examination (general) (routine) without abnormal findings Category: Medical Plan: Cotesting not indicated this year. Instructions given the patient to schedule next screening Mammogram in 01/10. Counseled the patient about the recommended dietary allowance of 1000 mg of Calcium & 600 IU of vitamin D. The patient was instructed to perform monthly self-breast exams and to schedule an annual exam in a year; All questions answered and the patient verbalized understanding. Instructed the patient to schedule annual exam in a year Coding Level of Care Code Est Pt Prev Care 40-64y(85940) Diagnoses Well woman exam Z01.419
[2024-01-09 14:53] VITALS: BP 110/74; BMI 29.4
== END 2024-01-09 15:16 | disposition home or self-care (01) ==
PROVIDERS: PCP Family Medicine; Visit Provider Obstetrics & Gynecology
DX: Z01.419 Encounter for gynecological examination (general) (routine) without abnormal findings (principal)
CPT/HCPCS: 99396

== ENCOUNTER → 2024-01-09 14:50 | Outpatient (BNVA) | payer BC, SELFPAY | PROVIDERS: PCP Family Medicine; Visit Provider Obstetrics & Gynecology ==

== ENCOUNTER 2024-05-23 03:56 | Emergency (ER) | payer BC, SELFPAY ==
--- NOTE | ~2024-05-23 | XR_ITS ---
CLINICAL HISTORY: twisted ankle, pain swelling 3 view left ankle Comparison: 06/04/2023 Findings: Normal alignment without acute fracture. Benign sclerotic distal tibial lesion is redemonstrated Ankle joint effusion. No radiopaque foreign body. Lateral ankle soft tissue swelling. IMPRESSION: 1. No acute fracture This document has been electronically signed by: Farzana Jerez MD on 05/23/2024 06:13:35
[2024-05-23 04:05] VITALS: BP 127/88; PULSE 110; RESP 18; TEMP 36.9; O2SAT 100; BMI 29.2
--- NOTE | 2024-05-23 07:08 | ED_ITS ---
HPI - General Adult General Chief complaint: Extremity Injury, Lower Stated complaint: gout ? left foot Time Seen by Provider: 05/23/24 07:07 Source: patient Mode of arrival: ambulatory (with a cane) Limitations: no limitations History of Present Illness ED Provider: Carol Martino PA-C HPI narrative: Patient is a 43 year old assigned female at with a history of hyperparathyroidism and gout presenting to the emergency department today with left ankle pain. Patient states that 3 days ago she twisted her left ankle and has been having pain ever since. Patient denies any head strike with the incident, patient denies any loss of consciousness with the incident, dizziness, lightheadedness, abdominal pain, nausea, vomiting, fever, chills, blurry vision, double vision, loss of vision, chest pain, difficulty breathing, shortness of breath, back pain, night sweats, pain with urination, increased urinary frequency, increased urinary urgency, blood in her urine or stool, syncope or a near syncopal episode, bowel incontinence, bladder incontinence, or any other complaints at this time. Onset (ago): day(s) () Location: left and lower extremity Relieving factors: immobilization Exacerbating factors: movement Associated symptoms: denies other symptoms Treatments prior to arrival: none Related Data Home Medications ?Medication ?Instructions ?Recorded ?Confirmed losartan 100 mg tablet 100 mg PO DAILY 11/11/20 01/09/24 magnesium 250 mg tablet 250 mg PO DAILY 11/11/20 01/09/24 valacyclovir 500 mg tablet 500 mg PO DAILY 11/11/20 01/09/24 omeprazole 20 mg capsule,delayed 20 mg PO DAILY 09/15/21 01/09/24 release ferrous sulfate 325 mg (65 mg 325 mg PO DAILY 04/28/22 01/09/24 iron) tablet tacrolimus 1 mg tablet,extended 2 mg PO DAILY 02/14/23 01/09/24 release 24 hr (Envarsus XR) Previous Rx's ?Medication ?Instructions ?Recorded estradiol 2 mg tablet 2 mg PO DAILY 90 days #90 tabs 10/31/21 cholecalciferol (vitamin D3) 50 50 mcg PO DAILY 30 days #30 caps 02/27/22 mcg (2,000 unit) capsule (D3-2000) calcium citrate 200 mg PO BID #180 tabs 01/16/23 acetaminophen 325 mg capsule 650 mg (2 x 325 mg) PO Q6H PRN 06/04/23 (Tylenol) pain #30 caps furosemide 80 mg tablet 80 mg PO BID #30 tabs 06/04/23 Allergies Allergy/AdvReac Type Severity Reaction Status Date / Time lisinopril Allergy Intermediate Cough Verified 05/23/24 04:07 adhesive tape Allergy Rash Verified 05/23/24 04:07 Review of Systems Constitutional: Constitutional: Reports no additional constitutional complaints, Denies chills, Denies fever(s) and Denies night sweats Eyes: Eyes: Reports no additional eye complaints, Denies blurry vision, Denies change in vision, Denies diplopia, Denies eye discharge, Denies loss of vision and Denies eye pain ENT: Denies dizziness Cardiovascular: Cardiovascular: Reports no additional cardiovascular complaints, Denies chest pain, Denies lightheadedness, Denies Loss of Consciousness and Denies dyspnea Respiratory: Respiratory: Reports no additional respiratory complaints and Denies dyspnea Gastrointestinal: Gastrointestinal: Reports no additional gastrointestinal complaints, Denies abdominal pain, Denies melena, Denies hematochezia, Denies change in bowel habits and Denies change in stool character Genitourinary: Genitourinary: Denies hematuria, Denies urinary frequency, Denies dysuria, Denies urinary incontinence, Denies urinary hesitancy and Denies urinary urgency Musculoskeletal: Musculoskeletal: Reports no additional musculoskeletal complaints, Denies numbness and Denies tingling Comments: left ankle pain Neurologic: Denies dizziness, Denies loss of vision, Denies numbness and Denies tingling Psychiatric: Psychiatric: Reports no additional psychiatric complaints Endocrine: Endocrine: Reports no additional endocrine complaints Hematologic/Lymphatic: Hematologic/Lymphatic: Reports no additional hematologic/lymphatic complaints Allergic/Immunologic: Allergic/Immunologic: Reports no additional allergic/immunologic complaints REPLACED BY [facility] Past Medical History Attestation statement: The following information was validated with the patient. Source: old records reviewed and nursing notes reviewed Medical History Atypical squamous cells of undetermined significance (ASC-US) on cervical Pap smear Well woman exam Hyperparathyroidism Goiter Systemic lupus erythematosus Vitamin D deficiency Osteopenia Premature ovarian failure Surgical History Hx of wisdom tooth extraction Hx of section Family History Family History Mother Thyroid disease Autoimmune disorder Brother Cancer Father Diabetes Social History Social History Household Members: Spouse and Children Housing: House Alcohol intake: current Alcohol intake frequency: holidays/special occasions only Patient Tobacco Use Status: Former Tobacco user Years Smoked: 20 Substance Use Type: Marijuana Advance Directives: No Advance Directives Information Provided: No Current occupational status: employed Current occupation: [employer] Sexual orientation: Straight/Heterosexual Gender identity: Female Physical Exam ED Vital Signs: Vital Signs - 24 hr 05/23/24 04:05 05/23/24 07:47 Temperature 98.4 F 98.4 F Pulse Rate 110 H 110 H Respiratory Rate 18 18 Blood Pressure 127/88 127/88 Pulse Oximetry 100 100 Oxygen Delivery Method Room Air Room Air BMI result Body Mass Index 29.2 Const General: cooperative, no acute distress, alert and awake Nutritional Appearance: well nourished Orientation/consciousness: patient oriented x3 Limitations: no limitations HENMT Head: Yes normal to inspection and Yes atraumatic Ears: hearing grossly normal bilaterally and external ears normal General nose exam: Normal external nose present, no nasal discharge noted and no epistaxis Face and sinus: Yes normal facial exam, No abrasion and No laceration Mouth: Normal oral and palatal mucosa present, no drooling and no muffled voice Eyes General: appearance normal, both eyes and all related structures Periorbital: periorbital findings normal Eyelids: Yes eyelids normal Conjunctivae: conjunctivae normal Pupils: Equal, round and reactive pupils present EOM: EOMs intact bilaterally Neck Neck: Yes normal visual inspection, Yes full ROM and Yes no lymphadenopathy Chest Chest palpation & inspection: normal inspection of the chest Resp Effort & Inspection: normal respiratory effort and able to speak in complete sentences GI Inspection: Yes normal to inspection Neuro General: patient oriented x3, moves all extremities and CN's II-XI intact bilaterally Cranial nerves: Yes Equal, round and reactive pupils present Cognition (Neuro): normal cognition Extrem Other: lateral swelling to the left ankle pain with palpation and ROM of the left ankle General: Yes full ROM and Yes capillary refill normal Psych Appearance: grossly normal Mental Status: mental status grossly normal Affect: normal affect Attitude: cooperative Thought process: Normal thought process present Thought content: Normal thought content present Insight: Good insight present (Psych) Procedures Orthopedic Splinting/Casting Injury #1: Side: left Lower Extremity Injury Location: ankle Lower Extremity Immobilizer: boot orthosis Medical Decision Making Medical Decision Making MDM Narrative: Patient is a 43 year old assigned female at with a history of hyperparathyroidism and gout presenting to the emergency department today with left ankle pain. Patient's physical exam was as noted in the physical exam portion of this note. Patient's left ankle x-ray showed no acute process. Patient's clinical presentation is most consistent with a left ankle sprain. I explained my physical exam findings as well as all test results to the patient. I answered all questions asked by the patient. Patient's left ankle was placed in a tall walking boot without incident. Patient's PMS was intact prior to and after boot placement. I stressed the importance of the patient taking her medication as directed (either prescribed or as the over the counter packaging recommends). I stressed the importance of the patient following up with her primary care provider and an orthopedic provider. I stressed the importance of the patient returning to the emergency department immediately if her symptoms were to worsen or if she were to develop any dizziness, shortness of breath, difficulty breathing, chest pain, blurry vision, loss of vision, nausea, vomiting, abdominal pain, fever, chills, back pain, or any other complaints. Patient verbalized agreement and understanding with this treatment plan and discharge. Differential Diagnosis Differential Diagnoses: The differential diagnosis associated with the presentation includes Left ankle sprain Left ankle strain Left ankle fracture Admission/Observation Consideration of admission/observation: Escalation of care including admission/observation considered Patient would have been admitted to the hospital had her work up had any findings where hospital admission was appropriate and her clinical presentation warranted hospital admission. Independent Interpretation I performed an independent interpretation of an: Plain X-Ray Interpretation: My interpretation is in agreement with the radiologist's impression of this imaging study. CLINICAL HISTORY: twisted ankle, pain swelling 3 view left ankle Comparison: 06/04/2023 Findings: Normal alignment without acute fracture. Benign sclerotic distal tibial lesion is redemonstrated Ankle joint effusion. No radiopaque foreign body. Lateral ankle soft tissue swelling. IMPRESSION: 1. No acute fracture This document has been electronically signed by: Farzana Jerez MD on 05/23/2024 06:13:35 Dictated By: Farzana Jerez MD Signed By: Electronically signed by Farzana Jerez MD 05/23/24 0614 Radiology Impression Discussion of test interpretation with radiology: I have reviewed the radiologist's reading. Discharge Plan Discharge Clinical Impression: Sprain of ankle Patient Disposition: Home, Self-Care Instructions: Ankle Sprain (DC), Walking Boot (ED) Additional Instructions: You may remove the boot when stationary / sleeping. Follow up with your primary care provider and the orthopedic team. Return to the emergency department immediately if your symptoms worsen or if you develop any numbness, tingling, dizziness, shortness of breath, difficulty breathing, chest pain, blurry vision, loss of vision, nausea, vomiting, abdominal pain, fever, chills, back pain, or any other complaints. Please see the information below about our Patient Portal. If you are not yet enrolled in the [facility] Patient Portal, you will receive an enrollment email invitation following your visit to any [facility] setting. You may also self-enroll in the Patient Portal by visiting our website: [email or web address] The following information is required to access the Patient Portal: - Your [facility] Medical Record Number - Your personal home email address (must match what is in your electronic medical record, Registration staff can assist with this) - Name - Date of Capabilities of the Patient Portal: - Message some providers - View upcoming appointments - Access your health summary, medical history, and visit history - View current conditions and allergies - View procedure and lab results - View your medications, including guidelines, side effects, and precautions - Complete pre-appointment questionnaires requested by your provider - Ready summary reports of your office visits and procedures To access the Patient Portal Mobile Jacky, follow these directions: - Search [employer] in the Jacky Store or Google Play Store - Download the Jacky - Search for [facility] - Enter your login/password Prescriptions: No Action estradiol 2 mg tablet 2 mg PO DAILY 90 Days Qty: 90 11RF cholecalciferol (vitamin D3) [D3-2000] 50 mcg (2,000 unit) capsule 50 mcg PO DAILY 30 Days Qty: 30 11RF calcium citrate 200 mg (950 mg) tablet 200 mg PO BID Qty: 180 3RF furosemide 80 mg tablet 80 mg PO BID Qty: 30 0RF acetaminophen [Tylenol] 325 mg capsule 650 mg PO Q6H PRN (Reason: pain) Qty: 30 0RF magnesium 250 mg tablet 250 mg PO DAILY valacyclovir 500 mg tablet 500 mg PO DAILY losartan 100 mg tablet 100 mg PO DAILY omeprazole 20 mg capsule,delayed release(DR/EC) 20 mg PO DAILY Envarsus XR 1 mg tablet extended release 24 hr 2 mg PO DAILY Rx Instructions: must be taken on empty stomach ferrous sulfate 325 mg (65 mg iron) tablet 325 mg PO DAILY Referrals: [facility] Orthopedic Surgeons [Provider Group] (Call to establish and follow up with an orthopedic provider for your left ankle sprain. ) Mayra Santos MD [Primary Care Provider] - Stand Alone Forms: Work/School Release Interventions: ED Discharge Assessment Last Done: 05/23/24 07:47 Discharge Date/Time: 05/23/24 07:48 Print Language: Qatari
--- OUTSIDE RECORDS SUMMARY | 2024-05-23 07:08 | XMS_ITS | Encounter Summary ---
Author Organization [facility], Address [address] [address] Phone Care Team Providers Care Wellhead Pumper Name Role Phone Mayra Santos MD Primary Care Provider [phone] Reason for Visit * Reason Onset Date Comments Med Refill 04/28/2022 Encounter Details Date Type Department Care Team (Late st Contact Info) Description 04/28/2022 Refill [facility] [address] [place] [address] Garcia Arora MD [address] [place] [address] [place] [address] Social History Tobacco Use Types Packs/Day Years Used Date Smoking Tobacco: Never Alcohol Use Standard Drinks/Week Comments No 0 (1 standard drink = 0.6 oz pure alcohol) Alcoholic Drinks/day: Occasional social drink Comments Unknown Sex and Gender Information Value Date Recorded Sex Assigned at Not on file Legal Sex Female 4:35 PM EST Gender Identity Not on file Sexual Orientation Not on file documented as of this encounter Plan of Treatment Upcoming Encounters Date Type Department Care Team (Late st Contact Info) Description 08/22/2024 4:00 PM EDT Office Visit [facility] [address] [place] [address] Garcia Arora MD [address] [place] [address] [place] [address] documented as of this encounter Visit Diagnoses Not on filedocumented in this encounter Care Teams Wellhead Pumper Relationship Specialty Start Date End Date Mayra Santos MD PCP - General 01/21/19 documented as of this encounter
--- OUTSIDE RECORDS SUMMARY | 2024-05-23 07:08 | XMS_ITS | Encounter Summary ---
Author Organization [facility], Address [address] [address] Phone Care Team Providers Care Social Media Manager Name Role Phone Mayra Santos MD Primary Care Provider Reason for Visit * Nephrology Services (Routine) - Authorized Specialty Diagnoses / Procedures Referred By Contac t Referred To Contact Nephrology Diagnoses Proteinuria PLS VERIFY INSURANCE Procedures ESTABLISHED Mayra Santos MD [address] [place] [address] Phone: tel: fax: Garcia Arora MD [address] [place] [address] [place] [address] Phone: tel: fax: Referral ID Status Reason Start Date Expiration Date V isits Requested Visits Authorized [id number] Authorized 09/24/2023 09/23/2024 6 6 Encounter Details Date Type Department Care Team (Latest Contact Info) Description 05/21/2024 3:45 PM EST Office Visit [facility], [address] [place] [address] Garcia Arora MD [address] [place] [address] [place] [address] SLE glomerulonephritis syndrome (HCC) (Primary Dx); Focal segmental glomerulosclerosis; Persistent proteinuria; Hypertension Social History Tobacco Use Types Packs/Day Years [...] on file documented as of this encounter Last Filed Vital Signs Vital Sign Reading Time Taken Comments Blood Pressure 104/76 05/21/2024 4:04 PM EST Pulse - - Temperature - - Respiratory Rate - - Oxygen Saturation - - Inhaled Oxygen Concentration - - Weight - - Height - - Body Mass Index - - documented in this encounter H&P Notes * Garcia Arora MD - 05/21/2024 3:45 PM EST Images from the original note were not included. PATIENT: Dolores Mock : 1980 ENCOUNTER: 05/21/2024 PCP: Mayra Santos MD Dolores Mock is a 43 y.o. year old patient who I have followed for the following: Dolores Mock is a 41 y.o. year old female with a history of Diffuse proliferative lupus nephritis. She has been treated aggressively in the past and had been off of immunosuppression for quite some time. She had a normal GFR and about [address] protein by [address] of protein to creatinine ratio. In 2019 she presented essentially with nephrotic syndrome and almost 12 g of proteinuria. This was in the setting of a creatinine of 0.8 mg/dl. She underwent a kidney biopsy September 18, 2019. In the past she had a combination of class IV and class V. The most recent biopsy showed segmental sclerosis of 8 of 13 glomeruli with relatively sparse subepithelial and subendothelial electron dense deposits classified as chronic inactive lupus nephritis. There was evidence of diffuse foot process effacement. Therewas global sclerosis of 3 of 13 glomeruli with mild interstitial fibrosis and tubular atrophy involving about 10% of the cortical area. The ISN activity index was 1 with a chronicity index of 5. In the interval since our last visit I have had the opportunity to review the following: -availablelaboratory data, imaging studies, and cardiovascular data -current medication list if available from patient; any changes from previous (including information from the patient's pharmacy, [facility], and Care Everywhere) During this visit I had the opportunity for a full review of systems and limited physical exam as outlined below, with the pertinent findings noted and others found to be negative or noncontributory to the current assessment of this patient. HPI: Dolores ultimately was put on Acthar. Unfortunately she had many side effects including muscle painand weakness in her legs. She gained a considerable amount of weight after going on the Acthar. Shecontinued on the tacrolimus as well. I ultimately took her off of the Acthar. Her creatinine was stable at 1.2 mg/dL with nonnephrotic range proteinuria of about 2.5 g and a serum albumin of 3.9. We did genetic testing for FSGS. She did not have genetic findings consistent with a genetic form of FSGS. She felt better after coming off of the Acthar but was still concerned about her considerable weight gain. She has followed up with the obesity clinic. She continues to struggle with her weight. Previously, I put her on Jardiance. It was not approved by her insurance. I also suggested that maritzauss with the weight loss clinic going on Mounjaro or Ozempic. Wegovy was prescribed for her butit was not approved. Her course has also been complicated by an episode of gout. She was treated acutely with prednisone. She continues on calcineurin inhibitor therapy with tacrolimus and ultimatelyher nephrotic syndrome has gone into remission and her creatinine has been in the range of 1.4 to 1.6 mg/dL. Her albumin is normal at 4.5 and her urine protein to creatinine ratio is pending althoughthe last one was less than a gram. I once again prescribed a GLP-1 agonist because her insurance changed. This was approved for 2 weeks. She use it for 2 weeks and has been off it since. She remains on long-acting tacrolimus 1 mg/day which is a low dose. She remains off of steroids. She has no edema. She continues to get intermittent bouts of gout. PAST MEDICAL HISTORY: Patient Active Problem List Diagnosis Date Noted ??? Dyslipidemia 08/24/2022 ??? Essential hypertension 06/01/2021 ??? Proteinuria 05/30/2019 ??? SLE glomerulonephritis syndrome (HCC) 05/30/2019 ??? Glomerulonephritis 05/30/2019 ??? Raynaud's disease 08/06/2012 ROS: Constitutional: No fever. Respiratory: No shortness of breath. Cardiovascular: No chest pain. Gastrointestinal: No abdominal pain, nausea or vomiting, no change in appetite. Genitourinary: No hematuria, pain, or difficulty voiding. All other systems reviewed and are negative. MEDICATIONS: Outpatient Encounter Medications as of 05/21/2024 Medication Sig Dispense Refill ??? Acetaminophen Extra Strength 500 MG tablet TOME BRIGIDO TABLETA CADA OCHO HORAS CUANDO SEA NECESARIO PARA EL DOLOR ??? acetaminophen-codeine (TYLENOL #3) 300-30 MG per tablet TAKE 1 TABLET BY ORAL ROUTE EVERY 4 HOURS NEEDED NEEDED FOR PAIN ??? allopurinol (ZYLOPRIM) 100 MG tablet Take 2 tablets (200 mg total) by mouth 1 (one) time each day 60 tablet 11 ??? atorvastatin (Lipitor) 10 MG tablet Take 1 tablet (10 mg total) by mouth 1 (one) time each day 30 tablet 11 ??? calcium citrate (CALCITRATE) 950 (200 Ca) MG tablet TOME BRIGIDO TABLETA DOS VECES AL D A ??? cetirizine (ZyrTEC) 10 MG tablet TOME BRIGIDO TABLETA TODOS LOS D EN LA MA SAPNA ??? Chest Congestion Relief 100 MG/5ML liquid TAKE 10 ML BY MOUTH IF NEEDED IN THE MORNING, AT NOON, AND AT BEDTIME FOR COUGH FOR UP TO 10 DAYS. ??? [facility] Magnesium Oxide 250 MG tablet TOME BRIGIDO TABLETA TODOS LOS D ??? cyclobenzaprine (FLEXERIL) 5 MG tablet PLEASE SEE ATTACHED FOR DETAILED DIRECTIONS ??? D3 Super Strength 50 MCG (2000 UT) capsule Take 1 capsule by mouth 1 (one) time each day 30 capsule 11 ??? ergocalciferol (VITAMIN D2) 1.25 MG (83191 UT) capsule TAKE 1 CAPSULE POR V A ORAL EVERY WEEK FOR 12 WEEKS ??? estradiol (ESTRACE) 2 MG tablet ??? ferrous sulfate 325 (65 Fe) MG tablet Take 1 tablet (325 mg total) by mouth 1 (one) time each day with breakfast 90 tablet 3 ??? fluticasone (FLONASE) 50 MCG/ACT nasal spray PLEASE SEE ATTACHED FOR DETAILED DIRECTIONS ??? furosemide (LASIX) 80 MG tablet Take 1 tablet (80 mg total) by mouth in the morning and 1 tablet (80 mg total) in the evening. 180 tablet 3 ??? hydroxychloroquine (PLAQUENIL) 200 MG tablet ??? losartan (COZAAR) 100 MG tablet TOME BRIGIDO TABLETA TODOS LOS D ??? Magnesium 250 MG tablet TOME BRIGIDO TABLETA TODOS LOS D ??? medroxyPROGESTERone (PROVERA) 10 MG tablet ??? norgestimate-ethinyl estradiol (SPRINTEC 28) 0.25-35 MG-MCG per tablet Comments: Filled Date:Sep 01 2017 12:00AM Patient Notes: TAKE 1 TABLET BY ORAL ROUTE EVERY DAY Duration: 28 ??? omeprazole (PriLOSEC) [address] capsule TAKE 1 CAPSULE (20 MG TOTAL) BY MOUTH 1 (ONE) TIME EACH DAY DO NOT CRUSH OR CHEW. 90 capsule 3 ??? Semaglutide-Weight Management (Wegovy) 0.5 MG/0.5ML solution auto-injector Inject 0.5 mg under the skin per week 2 mL 11 ??? Tacrolimus ER (Envarsus XR) 1 MG tablet sustained-release 24 hour TOME DOS TABLETAS POR VIA ORAL TODOS LOS SANABRIA 150 tablet 11 ??? valACYclovir (VALTREX) 500 MG tablet TAKE 2 TABLETS BY ORAL ROUTE 3 TIMES EVERY DAY FOR 7 DAYS FOR SHINGLES No facility-administered encounter medications on file as of 05/21/2024. ALLERGIES: has No Known Allergies. PHYSICAL EXAM: BP 104/76 Constitutional: No apparent distress Cardiovascular: No friction rub. Pulmonary/Chest: No rales. Abdominal: Soft and non-tender. Extremities: Edema None LABS: Chemistry Lab Units 05/20/24 0842 01/15/24 1150 06/24/23 1012 04/03/23 1049 01/16/23 1056 10/25/22 1008 09/08/22 1456 CREATININE mg/dL 1.66* 1.42* 1.58* 1.9* 1.5* 1.4* 1.3* BUN mg/dL 39* 45* 32* 34* 22* 31* 37* POTASSIUM mmol/L 4.2 4.4 4.3 4.5 4.7 4.7 5.0 SODIUM mmol/L 136 138 138 138 139 139 139 CO2 mmol/L 23 20 25 27 25 23 23 CHLORIDE mmol/L 96 100 101 101 105 104 104 ALBUMIN g/dL 4.5 4.1 4.0 4.1 3.9 3.4 3.7 EGFRNAFR ML/MIN/1.73 M2 -- -- -- 34 45 48 54 WBC AUTO x10E3/uL 9.9 9.1 8.1 8.2 7.3 -- 9.0 HEMATOCRIT % 40.3 38.1 34.0 36.7 40.8 -- 39.0 HEMOGLOBIN g/dL 13.6 12.6 11.4 12.1 13.7 -- 12.9 PLATELETS AUTO x10E3/uL 306 283 286 304 359 -- 319 Bone Mineral Lab Units 05/20/24 0842 01/15/24 1150 06/24/23 1012 04/03/23 1049 01/16/23 1056 10/25/22 1008 09/08/22 1456 06/14/22 0823 CALCIUM mg/dL 9.9 9.4 9.3 9.4 10.0 9.0 < > 9.1 PHOSPHORUS mg/dL 3.5 3.9 3.7 3.2 3.6 3.5 < > -- ALK PHOS U/L -- -- -- -- -- -- -- 72 < > = values in this interval not displayed. SUMMARY: Based on the above findings and my interpretation of the available data including med review, the following problems/diagnoses with recommendations for any further testing, treatment options, and follow-up are provided for your review: Chronic and Active Issues: 1. SLE glomerulonephritis syndrome (HCC) 2. Focal segmental glomerulosclerosis 3. Persistent proteinuria 4. Hypertension Dolores has a history of nephrotic proteinuria with no overt nephrotic syndrome. She has a history of proliferative lupus nephritis which was treated in the past but has been grappling with FSGS and has been on long-acting tacrolimus. She continues to struggle with her weight. Thankfully, her nephrotic syndrome has resolved and remains in remission. I am putting her on allopurinol 100 mg/day. I will see if we can get further approval for the Wegovy. Otherwise, I will see her back in 3 months. Orders Placed This Encounter ??? allopurinol (ZYLOPRIM) 100 MG tablet ??? Semaglutide-Weight Management (Wegovy) 0.5 MG/0.5ML solution auto-injector documented in this encounter Plan of Treatment Upcoming Encounters Date Type Department Care Team (Late st Contact Info) Description 08/22/2024 4:00 PM EDT Office Visit [facility], [address] [place] [phone] Garcia Arora MD [address] [place] [address] [place] [phone] documented as of this encounter Visit Diagnoses Diagnosis SLE glomerulonephritis syndrome (HCC)- Primary Focal segmental glomerulosclerosis Persistent proteinuria Hypertension documented in this encounter Care Teams Social Media Manager Relationship Specialty Start Date End Date Mayra Santos MD PCP - General 01/21/19 documented as of this encounter
--- OUTSIDE RECORDS SUMMARY | 2024-05-23 07:08 | XMS_ITS | Encounter Summary ---
Author Organization [facility] Address [address] [facility] [address] [address] [place] [address] Care Team Providers Care Occupational Therapist Aide Name Role Phone Mayra Santos MD Primary Care Provider [phone] Reason for Visit * Reason Onset Date Comments chart prep 04/28/2024 Encounter Details Date Type Department Care Team ([facility] st Contact Info) Description 04/28/[address] [facility] [address] [place] [address] Meena Crews MA chart prep Social History Tobacco Use Types Packs/Day Years Used Date Smoking Tobacco: Former Cigarettes Passive Smoke Exposure: Never Smokeless Tobacco: Never Alcohol Use Standard Drinks/Week Comments Not Currently 0 (1 standard drink = 0.6 oz pur e alcohol) Depression Answer Date Recorded Patient Health Questionnaire-9 Score 3 07/13/2022 Housing Stability Answer Date Recorded What is your housing situation today? I have octavio wade 01/01/[address] you li ve. Do you have problems with any of the following? None of the above 01/01/2023 Food Insecurity Answer Date Recorded Within the past 12 months, y ou worried that your food would run out before you got money to buy more: Never True 01/01/2023 Within the past 12 months,th e food you bought just didn't last and you didn't have enough money to get more: Never True Transportation Answer Date Recorded In the past 12 months, has l ack of transportation kept you from medical appts, meetings, work or from getting things needed for daily living? No 01/01/2023 Utilities Answer Date Recorded In the past 12 months, has t he electric, gas, oil or water company threatened to shut off services in your home? No 01/01/2023 Depression Answer Date Recorded Patient Health Questionnaire-2 Score 0 07/13/2022 Comments No Sex and Gender Information Value Date Recorded Sex Assigned at Female 01/16/2022 10:19 AM EDT Legal Sex Female 10:19 AM EDT Gender Identity Female 01/16/2022 10:19 AM EDT Sexual Orientation Straight 01/16/2022 10 :19 AM EDT documented as of this encounter Miscellaneous Notes * Telephone Encounter - Meena Crews MA - 04/28/2024 3:16 PM EST Chart Prep Labs: done Images: done Vaccines due: Covid Due, Tdap Due, and Flu Due Referrals: Completed Screenings: HIV screening Overdue care gaps: Sbirt, SDOH, and PHQ-9 documented in this encounter Plan of Treatment Upcoming Encounters Date Type Department Care Team (Late st Contact Info) Description 06/09/2024 3:45 PM EDT Office Visit [facility] [address] [place] [phone] Mayra Santos MD [address] [place] [phone] documented as of this encounter Visit Diagnoses Not on filedocumented in this encounter Additional Health Concerns Assessment Noted Time PHQ-9 Depression Total Score: 3 07/14/19 23 11:25 AM EDT documented as of this encounter Care Teams Occupational Therapist Aide Relationship Specialty Start Date End Date Mayra Santos MD [address] [place] [phone] PCP - General Family Medicine 07/24/13 documented as of this encounter
--- OUTSIDE RECORDS SUMMARY | 2024-05-23 07:08 | XMS_ITS | Encounter Summary ---
Author Organization [facility] Address [address] [place] [address] 7 [place] [address] Care Team Providers Care Manager Regulatory Name Role Phone Mayra Santos MD Primary Care Provider [phone] Reason for Visit * Reason Onset Date Comments Lab question 05/22/2024 Encounter Details Date Type Department Care Team ([facility] st Contact Info) Description 05/22/2024 Telephone [facility] [address] [place], [place] [phone] Mayra Santos MD [address] [place] [address] Lab question Social History Tobacco Use Types Packs/Day Years [...] encounter Miscellaneous Notes * Telephone Encounter - Kesha Ramirez RN - 05/22/2024 11:15 AM EST Telephone call returned to pt, no answer, left voicemail to call back [facility]. TSH lab is fasting. [employer] message. Pt to call back PRN. * Telephone Encounter - Candice Parada - 05/22/2024 10:35 AM EST Tc from pt requesting a call back to clarify if labs from 04/29 should be done on an empty stomach. Labs: TSH W. Reflex to FT4, Prolactin, HCG, Total, Quantitative documented in this encounter Plan of Treatment Upcoming Encounters Date Type Department Care Team (Late st Contact Info) Description 06/09/2024 3:45 PM EDT Office Visit [facility] [address] [place] [address] Mayra Santos MD [address] [place] [address] documented as of this encounter Visit Diagnoses Not on filedocumented in this encounter Additional Health Concerns Assessment Noted Time PHQ-9 Depression Total Score: 3 07/14/19 23 11:25 AM EDT documented as of this encounter Care Teams Manager Regulatory Relationship Specialty Start Date End Date Mayra Santos MD [address] [place] [address] PCP - General Family Medicine 07/24/13 documented as of this encounter
--- OUTSIDE RECORDS SUMMARY | 2024-05-23 07:08 | XMS_ITS | Encounter Summary ---
Author Organization [facility], Address [address] [address] Phone Care Team Providers Care Buildings And Grounds Supervisor Name Role Phone Mayra Santos MD Primary Care Provider Encounter Details Date Type Department Care Team (Late Contact Info) Description 04/17/2022 Documentation Only [facility] [address] [place] [address] Garcia Arora MD [address] [place] [address] [place] [address] Social History Tobacco Use Types [...] Visit [facility] [address] [place] [address] Garcia Arora MD [address] [place] [address] [place] [address] documented as of this encounter Visit Diagnoses Not on filedocumented in this encounter Care Teams Buildings And Grounds Supervisor Relationship Specialty Start Date End Date Mayra Santos MD PCP - General 01/21/19 documented as of this encounter
--- OUTSIDE RECORDS SUMMARY | 2024-05-23 07:08 | XMS_ITS | Encounter Summary ---
Author Organization [employer] [facility] Address [address] [place] [address] [address] [place] [address] Care Team Providers Care Data Services Developer Name Role Phone Mayra Santos MD Primary Care Provider [phone] Encounter Details Date Type Department Care Team (Late st Contact Info) Description 12/20/2022 Abstract [facility] [address] [place] [phone] Suzy Clark Social History Tobacco Use Types Packs/Day Years Used Date Smoking Tobacco: Former Cigarettes Passive Smoke Exposure: Never Smokeless Tobacco: Never Depression Answer Date Recorded Patient Health Questionnaire-9 Score 3 07/13/2022 Depression Answer Date Recorded Patient Health Questionnaire-2 Score 0 07/13/2022 Comments Unknown Sex and Gender Information Value Date Recorded Sex Assigned at Female 01/16/2022 10:19 AM EDT Legal Sex Female 10:19 AM EDT Gender Identity Female 01/16/2022 10:19 AM EDT Sexual Orientation Straight 01/16/2022 10 :19 AM EDT documented as of this encounter Plan of Treatment Upcoming Encounters Date Type Department Care Team (Late st Contact Info) Description 06/09/2024 3:45 PM EDT Office Visit [facility] [address] [place] [phone] Mayra Santos MD [address] [place], [place] [phone] documented as of this encounter Procedures Procedure Name Priority Date/Time Associated Diagnosis Comments HM PAP/HPV Routine 11/07/2021 documented in this encounter Results * Hm Pap Smear (11/07/2021) Pap Negative for intraephithelial lesion or malignancy Negative for intraephithelial lesion or malignancy, Other HPV Undetected us Historical Provider HEALTH MAINTENANCE Final Result documented in this encounter Visit Diagnoses Not on filedocumented in this encounter Additional Health Concerns Assessment Noted Time PHQ-9 Depression Total Score: 3 07/14/19 23 11:25 AM EDT documented as of this encounter Care Teams Data Services Developer Relationship Specialty Start Date End Date Mayra Santos MD [address] [place] [address] PCP - General Family Medicine 07/24/13 documented as of this encounter
--- OUTSIDE RECORDS SUMMARY | 2024-05-23 07:08 | XMS_ITS | Clinical Summary ---
Author Organization [employer] Address [address] [place] [address] Care Team Providers Care Bond Clerk Name Role Phone Mayra Santos MD Primary Care Provider [phone] Allergies Active Allergy Reactions Criticality Noted Date Comments Lisinopril Cough High 05/14/2014 Other reaction(s): Lip swelling Medications cholecalciferol (Vitamin D-3) 50 MCG (1999 UT) capsule TOME BRIGIDO C DEEPTHI TODOS LOS D 023 Active ferrous sulfate 325 (65 Fe) MG tablet TAKE 1 TABLET BY MOUTH 1 TIME EACH DAY WITH BREAKFAST. 023 Active acetaminophen (Tylenol Extra Strength) 500 MG tabletIndications :Viral URI Take 1 tablet (500 mg) by mouth every 8 (eight) hours if needed for mild pain. 30 tablet 023 Active atorvastatin (Lipitor) 20 MG tablet Take 1 tablet by mouth at bed time. 021 Active empagliflozin (Jardiance) 10 MG Take 10 mg by mouth. 023 Active omeprazole (PriLOSEC) [address] capsule Take 1 tablet by mouth once daily 90 capsule 3 023 Active acetaminophen-cod eine (Tylenol w/ Codeine #3) 300-30 MG tablet TAKE 1 TABLET BY ORAL ROUTE EVERY 4 HOURS NEEDED NEEDED FOR PAIN 020 Active calcium carbonate (Os-Sma) 1250 (500 Ca) MG tablet Take 1 tablet by mouth 2 times daily. 020 Active ergocalciferol (Vitamin D2) 1.25 MG (95135 UT) capsule TAKE 1 CAPSULE POR V A ORAL EVERY WEEK FOR 12 WEEKS 020 Active furosemide (Lasix) 80 MG tablet Take 80 mg by mouth. 024 Active hydroxychloroquin e (Plaquenil) 200 MG tablet TOME BRIGIDO TABLETA TODOS LOS D FOR 90 DAYS Active magnesium 250 MG tablet TOME BRIGIDO TABLETA TODOS LOS D 023 Active magnesium oxide 250 MG tablet TAKE 1 TABLET BY MOUTH EVERY DAY 90 tablet 1 024 Active valACYclovir (Valtrex) 500 MG tabletIndications :Herpes simplex vulvovaginitis TAKE 1 TABLET BY MOUTH TWICE DAILY FOR SUPPRESSIVE THERAPY 180 tablet 3 025 Active losartan (Cozaar) 100 MG tabletIndications :Primary hypertension TAKE 1 TABLET BY MOUTH EVERY MORNING 90 tablet 3 025 Active tacrolimus (Prograf) 1 MG capsuleIndication s:Dr Arora Take 1 mg by mouth 2 times daily. Active estradiol (Estrace) 2 MG tablet Take 1 tablet (2 mg) by mouth Once per day. 90 tablet 1 025 2024 Active progesterone 200 MG capsule Take x 12 days a month, starting on first of the month 72 capsule 1 025 Active estradiol (Estrace) 2 MG tablet Take 1 tablet (2 mg) by mouth Once per day. 90 tablet 1 024 2024 Discontinued(R eorder (will not trigger notification to Pharmacy)) progesterone 200 MG capsule TAKE X 12 DAYS A MONTH, STARTING ON FIRST OF THE MONTH 72 capsule 1 024 2024 Discontinued(R eorder (will not trigger notification to Pharmacy)) Active Problems Problem Noted Date Diagnosed Date Acute gout of left ankle 06/13/2023 Overview (06/13/2023): -resolved -uric acid was 6.7 -no new medication started will let her Nephrologists know Assessment & Plan (06/13/2023 11:33 AM EDT): -resolved -uric acid was 6.7 -no new medication started will let her Nephrologists know Goiter 06/13/2023 Hyperparathyroidism 06/13/2023 Vitamin D deficiency 06/13/2023 Venous insufficiency 09/05/2022 Assessment & Plan (09/05/2022 10:05 AM EDT): -venous study on 02/16/20 showed venous insufficiency -leg elevation -compression stocking was prescribed, but her insurance has not approved it -DASH diet -appropriate physical activity Weight gain 08/28/2022 Assessment & Plan (08/28/2022 3:56 PM EDT): Multifactorial: Medication Side-effects, discontinued physical activity, stress.. -encouraged to try [facility] -PCP Will call Low Altitude Air Defense Gunner and Acid Bath Mixer for pt's optimal Tx for Lupus Obesity (BMI 30-39.9) 08/28/2022 Assessment & Plan (03/11/2023 11:52 AM EST): Multifactorial: Medication Side-effects, limited physical activity, stress -Patient started seeing Weight Fishing Rod Assembler, since April 2022 and attending regularly -Patient is frustrated with the slow-progress. Agreed to try Pharmacological Treatment -tried phentermine from August to Nov 2022, which was ineffective, but will try again since GLP-1 agonist was not approved. Consider phentermine - topiramate combo. -GLP-1 agonist was prescribed. Semaglutide is not covered by pt's insurance. Will try again Assessment & Plan (12/01/2022 11:52 AM EDT): Multifactorial: Medication Side-effects, limited physical activity, stress -Patient started seeing Weight Fishing Rod Assembler, since April 2022 and attending regularly -Patient is frustrated with the slow-progress. Agreed to try Pharmacological Treatment -discussed about GLP-1 agonist and Phentermine -tried phentermine from August to Nov 2022, which was ineffective -will try GLP-1 Agonist Assessment & Plan (08/28/2022 4:11 PM EDT): Multifactorial: Medication Side-effects, limited physical activity, stress -Patient started seeing Weight Fishing Rod Assembler, since April 2022 and attending regularly -Patient is frustrated with the slow-progress. Agreed to try Pharmacological Treatment -discussed about GLP-1 agonist and Phentermine -will start Phentermine -will check GLP-1 Agonist will be approved by Insurance Dyslipidemia 08/24/2022 Assessment & Plan (03/11/2023 11:42 AM EST): - Current medication: Atorvastatin 20 mg at bedtime (?adherence) - Last lipid profile: 06/14/22 TC 249; TG 193; HDL 63; LDL 148 - Work on lifestyle modification Assessment & Plan (12/01/2022 11:59 AM EDT): - Current medication: Atorvastatin 20 mg at bedtime (?adherence) - Last lipid profile: 06/14/22 TC 249; TG 193; HDL 63; LDL 148 - Work on lifestyle modification Assessment & Plan (08/28/2022 4:08 PM EDT): - Current medication: Atorvastatin 20 mg at bedtime (?adherence) - Last lipid profile: 06/14/22 TC 249; TG 193; HDL 63; LDL 148 - Work on lifestyle modification Focal segmental glomerulosclerosis 08/24/2022 Assessment & Plan (03/11/2023 11:36 AM EST): - 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 She was started on immunosuppressant. She completed mycophenolate treatment in Oct 2015. She has been following with Dr. Paiz, bag bundler, for SLE nephritis / proteinuria. She was on hydroxychloroquine until 2015 when she was following with Dr. Velásquez, lead front end developer. Her SLE had been stable. Her renal function was normal, except proteinuria about 1 g. In spring 2019, she developed heavy proteinuria, shortly after she had Shingles. Her SCr was still 0.8 mg/dl. Her kidney biopsy in September 2019 showed a segmental sclerosis of 8 of 13 glomeruli with relatively sparse subepithelial and subendothelial electron dense deposits classified as chronic inactive lupus nephritis. There was evidence of diffuse foot process effacement. There was global sclerosis of 3 of 13 glomeruli with mild interstitial fibrosis and tubular atrophy involving about 10% of the cortical area. The ISN activity index was with a chronicity index of 5. 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 She was started on losartan, prednisone and diuretics. Due to elevated BP, losartan dose was titrated up to 100 mg daily. She was started on tacrolimus and her prednisone dose was tapered off. She continues to take furosemide 80 mg bid. Because she was failing on tacrolimus therapy, she was started on Acthar (cortisporin injection). It was discontinued due to weight gain. Recently prescribed SGLT-2 inhibitor. Currently on long-acting tacrolimus Continue following with Dr. Paiz. 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 She was started on immunosuppressant. She completed mycophenolate treatment in Oct 2015. She has been following with Dr. Paiz, bag bundler, for SLE nephritis / proteinuria. She was on hydroxychloroquine until 2015 when she was following with Dr. Velásquez, lead front end developer. Her SLE had been stable. Her renal function was normal, except proteinuria about 1 g. In spring 2019, she developed heavy proteinuria, shortly after she had Shingles. Her SCr was still 0.8 mg/dl. Her kidney biopsy in September 2019 showed a segmental sclerosis of 8 of 13 glomeruli with relatively sparse subepithelial and subendothelial electron dense deposits classified as chronic inactive lupus nephritis. There was evidence of diffuse foot process effacement. There was global sclerosis of 3 of 13 glomeruli with mild interstitial fibrosis and tubular atrophy involving about 10% of the cortical area. The ISN activity index was with a chronicity index of 5. 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 She was started on losartan, prednisone and diuretics. Due to elevated BP, losartan dose was titrated up to 100 mg daily. She was started on tacrolimus and her prednisone dose was tapered off. She continues to take furosemide 80 mg bid. Because she was failing on tacrolimus therapy, she was started on Acthar (cortisporin injection). It was discontinued due to weight gain. Recently prescribed SGLT-2 inhibitor. Continue following with Dr. Paiz. 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 She was started on immunosuppressant. She completed mycophenolate treatment in Oct 2015. She has been following with Dr. Paiz, bag bundler, for SLE nephritis / proteinuria. She was on hydroxychloroquine until 2015 when she was following with Dr. Velásquez. Her SLE had been stable. Her renal function was normal, except proteinuria about 1 g. In spring 2019, she developed heavy proteinuria, shortly after she had Shingles. Her SCr was still 0.8 mg/dl. Her kidney biopsy in September 2019 showed a segmental sclerosis of 8 of 13 glomeruli with relatively sparse subepithelial and subendothelial electron dense deposits classified as chronic inactive lupus nephritis. There was evidence of diffuse foot process effacement. There was global sclerosis of 3 of 13 glomeruli with mild interstitial fibrosis and tubular atrophy involving about 10% of the cortical area. The ISN activity index was with a chronicity index of 5. 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 She was started on losartan, prednisone and diuretics. Due to elevated BP, losartan dose was titrated up to 100 mg daily. She was started on tacrolimus and her prednisone dose was tapered down to 5 mg daily. She continues to take furosemide 80 mg bid. Because she was failing on tacrolimus therapy, Dr. Paiz prescribed Acthar therapy. However, it has not been approved and she may start Rituximab if Acthar is not approved. Osteopenia 08/24/2022 Assessment & Plan (03/11/2023 11:37 AM EST): Chronic steroid use, terminal system operator, tapered off in 2020 DEXA 11/25/19 Osteopenia T-score -1.9 DEXA 03/31/21 Osteopenia T-score -2.3 in femoral neck Continue calcium and vitamin D supplementation ?consider bisphosphonate Weight bearing exercise Assessment & Plan (12/01/2022 11:51 AM EDT): Chronic steroid use, terminal system operator, tapered off in 2020 DEXA 11/25/19 Osteopenia T-score -1.9 DEXA 03/31/21 Osteopenia T-score -2.3 in femoral neck Continue calcium and vitamin D supplementation ?consider bisphosphonate Weight bearing exercise Assessment & Plan (09/05/2022 10:10 AM EDT): Chronic steroid use, terminal system operator, tapered off in 2020 DEXA 11/25/19 Osteopenia T-score -1.9 DEXA 03/31/21 Osteopenia T-score -2.3 in femoral neck Continue calcium and vitamin D supplementation ?consider bisphosphonate Weight bearing exercise Premature ovarian failure 08/24/2022 Assessment & Plan (03/11/2023 11:38 AM EST): - Seen by [facility] endocrinology, Dr. Mark Sal, on Nov 11 2020, change the dose of the hormone replacement, currently on estradiol 2 mg daily and progesterone 10 mg daily for first 12 days of month - normal pap smear in September 2020. Assessment & Plan (08/28/2022 3:58 PM EDT): Seen by endocrinology, Dr. Mark Sal, on Nov 11 2020, change the dose of the hormone replacement, currently on estradiol 2 mg daily and progesterone 10 mg daily for first 12 days of month, normal pap smear in September 2020. Secondary amenorrhea 08/24/2022 Assessment & Plan (03/11/2023 11:34 AM EST): -Following with [facility] Endocrinology -05/05/20 Elevated FSH, suggestive of premature ovarian failure -MRI on 02/17/20 did not show pituitary tumor. -Continue progesterone and estradiol. Since she has a difficulty getting refills from endocrinology office, will prescribe Assessment & Plan (12/01/2022 11:50 AM EDT): -Following with [facility] Endocrinology -05/05/20 Elevated FSH, suggestive of premature ovarian failure -MRI on 02/17/20 did not show pituitary tumor. -Continue progesterone and estradiol. Since she has a difficulty getting refills from endocrinology office, will prescribe Assessment & Plan (09/05/2022 10:07 AM EDT): -Following with [facility] Endocrinology -05/05/20 Elevated FSH, suggestive of premature ovarian failure -MRI on 02/17/20 did not show pituitary tumor. -Continue progesterone and estradiol as prescribed by historiographer Hypertension 06/19/2022 Assessment & Plan (03/11/2023 11:34 AM EST): -Goal BP < 140/90 per JNC-8 and < 130/80 per ACC/AHA guideline -BP elevated today -Continue working on lifestyle modifications -Recommended self-monitoring BP. -her bag bundler has been leading BP management -continue losartan 100 mg daily -continue furosemide 80 mg bid -Prednisone started in September 2019 and tappered down and off in September 2020 -Follow up in 3-6 mo, sooner if any problem arises Assessment & Plan (12/01/2022 11:45 AM EDT): -Goal BP < 140/90 per JNC-8 and < 130/80 per ACC/AHA guideline -BP elevated today -Continue working on lifestyle modifications -Recommended self-monitoring BP. -her bag bundler has been leading BP management -continue losartan 100 mg daily -continue furosemide 80 mg bid -Prednisone started in September 2019 and tappered down and off in September 2020 -Follow up in 3-6 mo, sooner if any problem arises Assessment & Plan (09/05/2022 9:50 AM EDT): -Goal BP < 140/90 per JNC-8 and < 130/80 per ACC/AHA guideline -BP elevated today -Continue working on lifestyle modifications -Recommended self-monitoring BP. -continue losartan 100 mg daily -continue furosemide 80 mg bid -Prednisone started in September 2019 and tappered down and off in September 2020 -Follow up in 3-6 mo, sooner if any problem arises Assessment & Plan (06/19/2022 6:59 PM EDT): -Continue with current med regimen and follow up with PCP if readings continue to be elevated at home. Glomerulonephritis 05/30/2019 Proteinuria 05/30/2019 ASCUS of cervix with negative high risk HPV 04/20 Avascular necrosis of bone 05/09/2016 Long-term use of immunosuppressant medication Allergic rhinitis 07/23/2013 Assessment & Plan (08/28/2022 4:09 PM EDT): - Start Cetirizine and Flonase - consider allergy testing if recurrent symptoms or refractory to medication - consider Montelukast if pt is still symptomatic Systemic lupus erythematosus 03/13/2013 Assessment & Plan (03/11/2023 11:42 AM EST): Class IV-V -Current medications: --tacrolimus, started on 10/31/19, currently on long-acting 2 mg once daily -2019 worsening of proteinuria and LE edema, ESR 106 -Most recent kidney Bx on 09/18/19, focal segmental glomerulosclerosis, chronic inactive lupus nephritis, mild interstitial fibrosis Treatment Hx: -Atovaquone switched to mycophenolate in early 2013. -Completed Cytoxan monthly injection (15 month course). -Completed Cellcept (mycophenolate) Tx in Oct 2015. -Completed prednisone (>1 year, 8335-6088). -Discontinued amlodipine, prescribed for Raynaud due to hypotension. -Discontinued ACEI due to cough -Discontinued ARB due to hypotension -Hydroxychloroquine (with folic acid) stopped in 2018 -Acthar (corticotropin Injection) stopped in 1708-3119 due to weight gain and other endocrinological side effect -Low Altitude Air Defense Gunner: Dr. Paiz at [facility], last visit on 11/14/22 -Acid Bath Mixer: Dr. Rosales, last seen on 05/26/22. -Treatment Technician: Dr. Luna, last seen in July 2017 for Plaquenil use. Advised to reschedule since pt was on chronic steroid / increased risk for cataract - Hx unsuccessful BTL in May 2016. Her got a vasectomy. Assessment & Plan (12/01/2022 11:58 AM EDT): Class IV-V -Current medications: --tacrolimus, started on 10/31/19, currently on long-acting 2 mg once daily -2019 worsening of proteinuria and LE edema, ESR 106 -Most recent kidney Bx on 09/18/19, focal segmental glomerulosclerosis, chronic inactive lupus nephritis, mild interstitial fibrosis Treatment Hx: -Atovaquone switched to mycophenolate in early 2013. -Completed Cytoxan monthly injection (15 month course). -Completed Cellcept (mycophenolate) Tx in Oct 2015. -Completed prednisone (>1 year, 7859-4732). -Discontinued amlodipine, prescribed for Raynaud due to hypotension. -Discontinued ACEI due to cough -Discontinued ARB due to hypotension -Hydroxychloroquine (with folic acid) stopped in 2018 -Acthar (corticotropin Injection) stopped in 7732-0611 due to weight gain and other endocrinological side effect -Low Altitude Air Defense Gunner: Dr. Paiz at [facility], last visit on 11/14/22 -Acid Bath Mixer: Dr. Rosales, last seen on 05/26/22. -Treatment Technician: Dr. Luna, last seen in July 2017 for Plaquenil use. Advised to reschedule since pt was on chronic steroid / increased risk for cataract - Hx unsuccessful BTL in May 2016. Her got a vasectomy. Assessment & Plan (09/05/2022 10:13 AM EDT): Class IV-V -Current medications --tacrolimus, started on 10/31/19, currently 2 mg bid --prednisone, started in September 2019 and tapered off on September 2020 --losartan 100 mg daily --furosemide 80 mg bid --atorvastatin 10 mg qhs --Started on Acthar since 11/2021 -Recently had worsening of proteinuria and LE edema, ESR 106 -Most recent kidney Bx on 09/18/19, focal segmental glomerulosclerosis, chronic inactive lupus nephritis, mild interstitial fibrosis Treatment Hx: -Atovaquone switched to mycophenolate in early 2013. -Completed Cytoxan monthly injection (15 month course). -Completed Cellcept (mycophenolate) Tx in Oct 2015. -Completed prednisone (>1 year, 7276-6908). -Discontinued amlodipine, prescribed for Raynaud due to hypotension. -Discontinued ACEI due to cough -Discontinued ARB due to hypotension -Hydroxychloroquine (with folic acid) stopped in 2018 -Acthar (corticotropin Injection) stopped in 0234-5184 due to weight gain and other endocrinological side effect -Low Altitude Air Defense Gunner: Dr. Paiz at [facility], last visit on 05/31/22 -Acid Bath Mixer: Dr. Rosales, last seen on 05/26/22. -Treatment Technician: Dr. Luna, last seen in July 2017 for Plaquenil use. Advised to reschedule since pt was on chronic steroid / increased risk for cataract - Hx unsuccessful BTL in May 2016. Her got a vasectomy. Raynaud's disease 08/06/2012 Assessment & Plan (03/11/2023 11:33 AM EST): - previously tried amlodipine; no longer prescribed Dyslexia 11/23/2011 Resolved Problems Problem Noted Date Diagnosed Date Resolved Date Viral URI 07/13/2022 03/11/2023 Assessment & Plan (07/13/2022 12:26 PM EDT): 41 yr old female with a PMHx significant for SLE on chronic immunosuppressants comes in with c/o new onset of cough, nasal congestion and sore throat. She denies any fever or any other associated symptoms. Describes the phlegm as green. No chest pain, No sob. On exam vital signs stable, lungs clear to auscultation bilaterally Rapid Covid, Strep and Influenza all Negative Etiology, likely viral URI, high risk for complication with bacterial superinfection given that she is on chronic immunosuppressants. Discussed with her that she needs to call, or come in or present herself to the nearest ER if her cough worsens, becomes productive of yellowish, brownish or bloody, or if she develops sob, difficulty breading , fever or any other symptoms since she may need antibiotics at that point In the meantime I have recommended to continue with supportive measures, Tyelnol PRN, antihistaminics and mucolytics. Pt verbalized understanding Follow up with PCP on next available Encounters Date Type Department Care Team Description 05/23/2024 Orders Only [facility] External Provider, [facility] 05/22/[address] [id number] Mayra Santos MD Lab question 04/29/2024 1:00 PM EST Office Visit [address] [address] Ivelisse Garcia CNM Amenorrhea (Primary Dx) 04/29/2024 Travel 04/28/[address] [address] Meena Crews MA chart prep 04/04/2024 Refill [facility] [address] [place] [address] Mayra Santos MD Primary hypertension 03/20/2024 [address]ill [address] [place] [address] Mayra Santos MD Herpes simplex vulvovaginitis from Last 3 Months Immunizations Name Administration Dates Next Due Hep B, adult 06/26/2008,01/21/2008,12/20/2007 Influenza injectable quadriv alent IIV4 with preservative 02/27/2017,01/18/2016,05/04/2015 Influenza injectable quadriv alent preservative free 11/27/2022,02/13/2022,12/21/2020,05/21,01/11/2018 Influenza, High Dose Seasona l, Preservative Free 05/05/2015 Influenza, IIV3, injectable 12/30/2013 Influenza, Split (incl. julian fied surface antigen) 12/31/2012,11/23/2011 Pneumococcal Conjugate PCV 20 09/11/2022 Pneumococcal Polysaccharide PPSV23 10/02/2013, TD (adult), 2 Lf tetanus tox oid, preservative free, adsorbed 08/13/2008 Tdap 12/31/2012 Varicella 09/11/2007 Zoster, Recombinant 11/13/2022,09/11/2022 Family History Medical History Relation Name Comments Cancer Brother unknown primary Relation Name Status Comments Brother Social History Tobacco Use Types Packs/Day Years Used Date Smoking Tobacco: Former Cigarettes Passive Smoke Exposure: Never Smokeless Tobacco: Never Tobacco Cessation:Counseling Given: Not Answered Alcohol Use Standard Drinks/Week Comments Not Currently 0 (1 standard drink = 0.6 oz pur e alcohol) Depression Answer Date Recorded Patient Health Questionnaire-9 Score 3 07/13/2022 Housing Stability Answer Date Recorded What is your housing situation today? I have octaviorefugio wade 01/01/[address] you [...] Orientation Straight 01/16/2022 10 :19 AM EDT Last Filed Vital Signs Vital Sign Reading Time Taken Comments Blood Pressure 130/78 04/29/2024 1:11 PM EST Pulse 92 04/29/2024 1:11 PM EST Temperature 36.5 ??C (97.7 ??F) 04/29/2024 1:11 PM ES T Respiratory Rate 19 04/29/2024 1:11 PM EST Oxygen Saturation 99% 10/16/2023 2:16 PM EDT Inhaled Oxygen Concentration - - Weight 76.8 kg (169 lb 6.4 oz) 04/29/2024 1:11 P M EST Height 160 cm (5' 3 ) 10/16/2023 2:16 PM EDT Body Mass Index 30.01 10/16/2023 2:16 PM EDT Plan of Treatment Upcoming Encounters Date Type Department Care Team (Late st Contact Info) Description 06/09/2024 3:45 PM EDT Office Visit [facility] [address] [place] [address] Mayra Santos MD [address] [place] [address] Health Maintenance Due Date Last Done Comments HIV Screening 1981 Alcohol/Substance Use Screening 1993 Hepatitis C Screening 10/18/1999 DTaP/Tdap/Td Vaccines (2 - Td or Tdap) 12/31/2022 12/31/2012, 08/13/2008 Depression Screening 07/14/2023 07/13/2022, 07/14/19 23 SDOH Screening 07/14/2023 07/13/2022 COVID-19 Vaccine ( season) 2023 05/03/2023, 01/04/2021, 06/15/2020, Additional history exists Influenza Vaccine (#1) 2023 , 02/13/2022, 12/21/2020, Additional history exists Cervical Cancer Screening 10/15/2024 Family Planning (PISQ) 10/15/2024 10/16/2023 Pap Smear 10/15/2024 10/16/2023, 10/18, 10/04/2020 Tobacco Screening 04/29/2025 04/29/2024 Mammogram 01/06/2026 01/07/2024, 12/17, 01/03/2023, Additional history exists Lipid Panel 06/15/2027 06/14/2022, 10/18, 01/21/2020 HPV/Cotest 10/15/2028 10/16/2023, 10/18, 11/07/2021, Additional history exists RSV Patients and Patients Aged 60 years or older (1 - 1-dose 75+ series) 2056 Hepatitis B Vaccines Completed 06/26/2008, 01/21/2008, 12/20/2007 Pneumococcal Vaccine: Pediatrics (0 to 5 Years) and At-Risk Patients (6 to 49) Years) Completed 09/11/2022, 10/02/2013, 04/24/2013 Zoster Vaccines Completed 11/13/2022, 09/11/2022 HIB Vaccines Aged Out No longer eligi ble based on patient's age to complete this topic HPV Vaccines Aged Out No longer eligi ble based on patient's age to complete this topic Hepatitis A Vaccines Aged Out No long er eligible based on patient's age to complete this topic IPV Vaccines Aged Out No longer eligi ble based on patient's age to complete this topic Meningococcal Vaccine Aged Out No dylon kevin eligible based on patient's age to complete this topic RSV under 20 months Aged Out No longe r eligible based on patient's age to complete this topic Rotavirus Vaccines Aged Out No longer eligible based on patient's age to complete this topic Procedures Procedure Name Priority Date/Time Associated Diagnosis Comments XR ANKLE 3+ VIEWS LEFT Routine 6:13 AM EST BI MAMMOGRAM SCREENING TOMOSYNTHESIS BILATERAL Routine 01/07/2024 3:05 PM EDT THINPREP IMAGING PAP AND HPV MRNA E6/E7 Routine 10/16/2023 2:33 PM EDT LIPID PANEL, STANDARD Routine 06/14/2022 8:23 AM EDT from Last 3 Months or Most Recently Relevant to Health Maintenance Results * XR Ankle 3+ Views Left (05/23/2024 6:13 AM EST) Anatomical Region Laterality Modality Lower Extremities, Ankle Left Radiogr aphic Imaging 05/23/2024 6:13 AM EST Narrative 05/23/2024 6:15 AM EST ? [facility] ?[address] ?[place] [address] ?XRay Report ? Signed ? Patient: Dolores Mock ?MR#: [id number] ?? 88 ? : 1980 ?Acct:[id number] ? Age/Sex: 43 / F ?ADM Date: 05/23/24 ? Loc: HO.ED ? Attending Dr: ? Ordering Physician: Generic ED Physician ?? Date of Service: 05/23/24 ?? Procedure(s): XR ankle LT min 3V ?? Accession Number(s): [id number] ? cc: Generic ED Physician; Mayra Santos MD ? CLINICAL HISTORY: twisted ankle, pain swelling ? 3 view left ankle ? Comparison: 06/04/2023 ? Findings: ?? Normal alignment without acute fracture. ?? Benign sclerotic distal tibial lesion is redemonstrated ?? Ankle joint effusion. ?? No radiopaque foreign body. ? Lateral ankle soft tissue swelling. ? IMPRESSION: ?? 1. No acute fracture ? This document has been electronically signed by: Farzana Jerez MD on ?? 05/23/2024 06:13:35 ? Dictated By: ?Farzana Jerez MD ? Signed By: ?<Electronically signed by Farzana Jerez MD in OV> ? 05/23/24613 ? DD/ 2 ? TD/TT: 05/23/24612 ? Business Consult: ? Procedure Note Donotroddyinterpreter, Image - 05/23/[address] [address] XRay Report Signed Patient: Kandice Mock#: [id number] 88 : 1980Acct:[id number] Age/Sex: 43 / FADM Date: 05/23/24 Loc: HO.ED Attending Dr: Ordering Physician: Generic ED Physician Date of Service: 05/23/24 Procedure(s): XR ankle LT min 3V Accession Number(s): [id number] cc: Generic ED Physician; Mayra Santos MD CLINICAL HISTORY: twisted ankle, pain swelling 3 view left ankle Comparison: 06/04/2023 Findings: Normal alignment without acute fracture. Benign sclerotic distal tibial lesion is redemonstrated Ankle joint effusion. No radiopaque foreign body. Lateral ankle soft tissue swelling. IMPRESSION: 1. No acute fracture This document has been electronically signed by: Farzana Jerez MD on 05/23/2024 06:13:35 Dictated By: Farzana Jerez MD Signed By: <Electronically signed by Farzana Jerez MD in OV> 05/23/24613 DD/ 2 TD/TT: 05/23/24612 Business Consult: [facility] External Provider IMG XR PROCEDURES Final Result * BI Mammogram Screening Tomosynthesis Bilateral (01/07/2024 3:05 PM EDT) Anatomical Region Laterality Modality Breast Bilateral Mammography 01/07/2024 3:05 PM EDT Narrative 01/18/2024 10:51 AM EDT ? [facility] ? [address] ?[place] [address] ? Mammography Report ? Signed ? Patient: Nish,Dolores ?MR#: [id number] ?? 88 ? : 1980 ?Acct:[id number] ? Age/Sex: 43 / F ?ADM Date: 10/21/24 ? Loc: HO.MAMMO ? Attending Dr: Mayra Santos MD ? Ordering Physician: Mayra Santos MD ?Results: 1Negative ? Date of Service: 01/07/24 ?Follow Up: 1 Year From Orig ?? inal Mammogram ? Procedure(s): MM tomosynthesis screening BI ?? Accession Number(s): [id number] ? cc: Mayra Santos MD ? EXAMINATION: ?? MM SCREENING DIGITAL BREAST TOMOSYNTHESIS, BILATERAL ? CLINICAL INFORMATION: ? Screening. Asymptomatic. ? COMPARISON: ?? Mammography: Comparison is made with available priors ? TECHNIQUE: ?? Digital breast mammography with tomosynthesis is performed in both the ?? craniocaudal and mediolateral oblique views along with computer-aided ?? detection (CAD). ? FINDINGS: ?? There are scattered areas of fibroglandular density (ACR BI-RADS breast ?? composition Category b). ? There are no significant masses, abnormal calcifications, or other ?? abnormalities. ? MM/MM tomosynthesis screening BI ?? IMPRESSION: ?? No mammographic evidence of malignancy. ? ASSESSMENT: ? BI-RADS BI-RADS 1 - Negative ? RECOMMENDATION: ?? Routine annual mammography screening. ? 1 year F/U ? This examination should not preclude the clinical evaluation of a ?? suspicious palpable abnormality. ? This patient's information was entered into a reminder system with a ?? target due date for their next mammogram. ? Electronically signed by: ??Miguelina Rea DO ??01/18/2024 10:47 AM EDT ?? RP ? Dictated By: ?Miguelina Rea DO ? Signed By: ?<Electronically signed by Miguelina Rea, DO in OV> ? 01/18/247 ? DD/ 1505 ? TD/TT: 01/07/24 1522 ? Business Consult: ? Procedure Note Donotuseinterpreter, Image - [facility] [address] [place] [address] Mammography Report Signed Patient: Kandice Mock#: [id number] 88 : 1980Acct:[id number] Age/Sex: 43 / FADM Date: 01/07/24 Loc: BELLA Attending Dr: Mayra Santos MD Ordering Physician: Mayra Santos MDResults: 1Negative Date of Service: 01/07/24Follow Up: 1 Year From Orig inal Mammogram Procedure(s): MM tomosynthesis screening BI Accession Number(s): [id number] cc: Mayra Santos MD EXAMINATION: MM SCREENING DIGITAL BREAST TOMOSYNTHESIS, BILATERAL CLINICAL INFORMATION: Screening. Asymptomatic. COMPARISON: Mammography: Comparison is made with available priors TECHNIQUE: Digital breast mammography with tomosynthesis is performed in both the craniocaudal and mediolateral oblique views along with computer-aided detection (CAD). FINDINGS: There are scattered areas of fibroglandular density (ACR BI-RADS breast composition Category b). There are no significant masses, abnormal calcifications, or other abnormalities. MM/MM tomosynthesis screening BI IMPRESSION: No mammographic evidence of malignancy. ASSESSMENT: BI-RADS BI-RADS 1 - Negative RECOMMENDATION: Routine annual mammography screening. 1 year F/U This examination should not preclude the clinical evaluation of a suspicious palpable abnormality. This patient's information was entered into a reminder system with a target due date for their next mammogram. Electronically signed by: Miguelina Rea DO 01/18/2024 10:47 AM EDT RP Dictated By: Miguelina Rea DO Signed By: <Electronically signed by Miguelina Rea DO in OV> 01/18/24 1047 DD/ 1505 TD/TT: 01/07/24 1522 Business Consult: Mayra Santos MD IMG BI PROCEDURES Edited Result - Final * ThinPrep Imaging Pap and HPV mRNA E6/E7 (10/16/2023 2:33 PM EDT) HPV nRNA E6/E7 Not Detected Not Detected [facility] Comment:Methodology: Transcr iption-Mediated AmplificationThis assay detects E6/E7 viral messenger RNA (mRNA) from 14high-risk HPV types (16,18,31,33,35,39,45,51,52,56,58,59,66,68).Cervical sources are required for HPV testing.If a vaginal source from a patient who has had atotal hysterectomy with removal of cervix wassubmitted, please contact the testing laboratoryfor alternative testing options.For additional information, please refer tohttp://education.[employer]/faq/PLG594j8(This link if provided for information/educational purposes only.)THIS TEST WAS PERFORMED AT:[facility] [place] [phone] PARADA MD SOURCE: SEE NOTE [facility] Comment:None given Report Status: [facility] Clinical Information: SEE NOTE [facility] Comment:None given LMP: SEE NOTE [facility] Comment:NONE GIVEN Prev. PAP: SEE NOTE [facility] Comment:NONE GIVEN Prev. BX: SEE NOTE [facility] Comment:NONE GIVEN Statement Of Adequacy: SEE NOTE [facility] Comment:Satisfactory for zunilda luation.Endocervical/transformation zone component absent. General Categorization: [facility] Interpretation/Result: SEE NOTE [facility] Comment:Cytology Results: Ne gative for intraepitheliallesion or malignancy. Cytology Comment SEE NOTE [facility] Comment:This Pap test has be en evaluated with computerassisted technology. Roll Cutting Operator: SEE NOTE [facility] Comment:BK,CT(ASCP)CT screen ing location: [address] Review Roll Cutting Operator: TNP [facility] Pathologist TNP [facility] PAP Infection SEE NOTE [facility] Comment:Shift in vaginal orin ra suggestive of bacterialvaginosis. See Note SEE NOTE [facility] Comment:EXPLANATORY NOTE:The Pap is a screening test for cervical cancer. It isnot a diagnostic test and is subject to false negativeand false positive results. It is most reliable when asatisfactory sample, regularly obtained, is submittedwith relevant clinical findings and history, and whenthe Pap result is evaluated along with historic andcurrent clinical information. 10/16/2023 2:33 PM EDT 10/16/2023 6:54 PM EDT Narrative [facility] - 10/18/2023 1:08 PM EDT SEE SCANNED RESULTS IN EMR us [facility] PATHOLOGY ORDERABLES Final Result [facility] [address] [place], [place] [phone] [phone] * Lipid Panel, Standard (06/14/2022 8:23 AM EDT) Triglycerides 193 mg/dL [facility] Comment:Desirable Triglyceri de: less than 150 mg/dLBorderline High Triglyceride 150-199 mg/dLHigh Triglyceride: 200-499 mg/dLVery High Triglyceride: greater than or equal to 5OO mg/dL Cholesterol 249 mg/dL [facility] Comment:Desirable Cholestero l: less than 200 mg/dLBorderline High Cholesterol: 200-239 mg/dLHigh Cholesterol: greater than 239 mg/dL LDL Cholesterol Calculated 148 mg/dl [facility] Comment:Desirable LDL: less than 100 mg/dLNear Optimal/Above Optimal LDL: 110- 129 mg/dLBorderline High LDL: 130-159 mg/dLHigh LDL: 160-189 mg/dLVery High LDL: greater than or equal to 190 mg/dL HDL Cholesterol 63 mg/dL [facility] Comment:Desirable HDL: great er than 40 mg/dL Note: This HDL assay may give artificially low results in patients with liver disease. 06/14/2022 8:23 AM EDT 06/14/2022 8:23 AM EDT [facility] External Provider LAB BLO OD ORDERABLES Final Result [facility] [address] [place] [address] [phone] from Last 3 Months or Most Recently Relevant to Health Maintenance Insurance * Guarantor: Dolores Mock Account Type Relation to Patient Date of Phone Billing Address Personal/Family Self [address] [place] Care Teams Bond Clerk Relationship Specialty Start Date End Date Mayra Santos MD [address] [place] [address] PCP - General Family Medicine 07/24/13
--- OUTSIDE RECORDS SUMMARY | 2024-05-23 07:08 | XMS_ITS | Encounter Summary ---
Author Organization [facility], Address [address] [address] Phone Care Team Providers Care Supervisor Contact Lens Name Role Phone Mayra Santos MD Primary Care Provider [phone] Encounter Details Date Type Department Care Team (Late Contact Info) Description 01/23/2024 Documentation Only [facility] [address] [place] [address] Garcia Arora MD [address] [place] [address] [place] [address] Social History Tobacco Use Types [...] Visit [facility] [address] [place] [address] Garcia Arora MD [address] [place] [address] [place] [address] documented as of this encounter Visit Diagnoses Not on filedocumented in this encounter Care Teams Supervisor Contact Lens Relationship Specialty Start Date End Date Mayra Santos MD PCP - General 01/21/19 documented as of this encounter
--- OUTSIDE RECORDS SUMMARY | 2024-05-23 07:08 | XMS_ITS | Encounter Summary ---
Author Organization [facility], Address [address] [place] [address] Phone Care Team Providers Care Transport Tech Name Role Phone Mayra Santos MD Primary Care Provider [phone] Encounter Details Date Type Department Care Team (Late st Contact Info) Description 01/21/2024 Documentation Only [facility] [address] [place] [address] [address] [place] [address] [place] [address] Social History Tobacco Use Types Packs/Day Years [...] Visit [facility] [employer] [address] [place] [address] Garcia Arora MD [address] [place] [address] [place] [address] documented as of this encounter Visit Diagnoses Not on filedocumented in this encounter Care Teams Transport Tech Relationship Specialty Start Date End Date Mayra Santos MD PCP - General 01/21/19 documented as of this encounter
--- OUTSIDE RECORDS SUMMARY | 2024-05-23 07:08 | XMS_ITS | Clinical Summary ---
Author Organization [facility], Address [address] [place] [address] [place] [address] Phone Care Team Providers Care Director Treasurer Name Role Phone Mayra Santos MD Primary Care Provider [phone] Allergies No known active allergies Medications norgestimate-et hinyl estradiol (SPRINTEC 28) 0.25-35 MG-MCG per tablet Comments: Filled Date: Sep 01 2017 12:00AM Patient Notes: TAKE 1 TABLET BY ORAL ROUTE EVERY DAY Duration: 28 8 Active valACYclovir (VALTREX) 500 MG tablet TAKE 2 TABLETS BY ORAL ROUTE 3 TIMES EVERY DAY FOR 7 DAYS FOR SHINGLES 0 Active acetaminophen-c odeine (TYLENOL #3) 300-30 MG per tablet TAKE 1 TABLET BY ORAL ROUTE EVERY 4 HOURS NEEDED NEEDED FOR PAIN 0 Active atorvastatin (Lipitor) 10 MG tablet Take 1 tablet (10 mg total) by mouth 1 (one) time each day 30 tablet 11 0 Active losartan (COZAAR) 100 MG tablet TOME BRIGIDO TABLETA TODOS LOS D 0 Active ergocalciferol (VITAMIN D2) 1.25 MG (42582 UT) capsule TAKE 1 CAPSULE POR V A ORAL EVERY WEEK FOR 12 WEEKS 0 Active [facility] Magnesium Oxide 250 MG tablet TOME BRIGIDO TABLETA TODOS LOS D 1 Active estradiol (ESTRACE) 2 MG tablet 1 Active medroxyPROGESTE Db (PROVERA) 10 MG tablet 1 Active calcium citrate (CALCITRATE) 950 (200 Ca) MG tablet TOME BRIGIDO TABLETA DOS VECES AL D A 2 Active omeprazole (PriLOSEC) [address] capsule TAKE 1 CAPSULE (20 MG TOTAL) BY MOUTH 1 (ONE) TIME EACH DAY DO NOT CRUSH OR CHEW. 90 capsule 3 2 Active hydroxychloroqu ine (PLAQUENIL) 200 MG tablet 3 Active Magnesium 250 MG tablet TOME BRIGIDO TABLETA TODOS LOS D 3 Active Acetaminophen Extra Strength 500 MG tablet TOME BRIGIDO TABLETA CADA OCHO HORAS CUANDO SEA NECESARIO PARA EL DOLOR 3 Active cetirizine (ZyrTEC) 10 MG tablet TOME BRIGIDO TABLETA TODOS LOS D EN LA MA SAPNA 3 Active cyclobenzaprine (FLEXERIL) 5 MG tablet PLEASE SEE ATTACHED FOR DETAILED DIRECTIONS 3 Active fluticasone (FLONASE) 50 MCG/ACT nasal spray PLEASE SEE ATTACHED FOR DETAILED DIRECTIONS 3 Active Chest Congestion Relief 100 MG/5ML liquid TAKE 10 ML BY MOUTH IF NEEDED IN THE MORNING, AT NOON, AND AT BEDTIME FOR COUGH FOR UP TO 10 DAYS. 3 Active ferrous sulfate 325 (65 Fe) MG tablet Take 1 tablet (325 mg total) by mouth 1 (one) time each day with breakfast 90 tablet 3 4 Active furosemide (LASIX) 80 MG tablet Take 1 tablet (80 mg total) by mouth in the morning and 1 tablet (80 mg total) in the evening. 180 tablet 3 4 Active D3 Super Strength 50 MCG (2000 UT) capsule Take 1 capsule by mouth 1 (one) time each day 30 capsule 11 4 06/25/19 25 Active Tacrolimus ER (Envarsus XR) 1 MG tablet sustained-relea se 24 hour TOME DOS TABLETAS POR VIA ORAL TODOS LOS SANABRI[place] 150 tablet 11 4 Active allopurinol (ZYLOPRIM) 100 MG tablet Take 2 tablets (200 mg total) by mouth 1 (one) time each day 60 tablet 11 5 05/22/19 26 Active Semaglutide-Jorge ght Management (Wegovy) 0.5 MG/0.5ML solution auto-injector Inject 0.5 mg under the skin per week 2 mL 11 5 05/22/19 26 Active Active Problems Problem Noted Date Diagnosed Date Dyslipidemia 08/24/2022 11/13/2022 Overview (11/13/2022): Last Assessment & Plan: - Current medication: Atorvastatin 20 mg at bedtime (?adherence) - Last lipid profile: 06/14/22 TC 249; TG 193; HDL 63; LDL 148 - Work on lifestyle modification Essential hypertension 06/01/2021 Proteinuria 05/30/2019 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 Glomerulonephritis 05/30/2019 Raynaud's disease 08/06/2012 11/13/2022 Encounters Date Type Department Care Team Description 05/21/2024 3:45 PM EST Office Visit [facility] [address] [place] [address] Garcia Arora MD SLE glomerulonephritis syndrome (HCC) (Primary Dx); Focal segmental glomerulosclerosis; Persistent proteinuria; Hypertension from Last 3 Months Immunizations Name Administration Dates Next Due Influenza Split High Dose Preservative Free IM 0 05/05/2015 Family History Relation Status Comments Father Alive Social History Tobacco Use Types Packs/Day Years Used Date Smoking Tobacco: Never Alcohol Use Standard Drinks/Week Comments No 0 (1 standard drink = 0.6 oz pure alcohol) Alcoholic Drinks/day: Occasional social drink Comments Unknown Sex and Gender Information Value Date Recorded Sex Assigned at Not on file Legal Sex Female 4:35 PM EST Gender Identity Not on file Sexual Orientation Not on file Last Filed Vital Signs Vital Sign Reading Time Taken Comments Blood Pressure 104/76 05/21/2024 4:04 PM EST Pulse 89 09/16/2019 11:00 AM EDT Temperature - - Respiratory Rate - - Oxygen Saturation - - Inhaled Oxygen Concentration - - Weight 80.3 kg (177 lb) 09/13/2020 3:33 PM EDT Height 160 cm (5' 3 ) 01/30/2019 12:00 PM EST Body Mass Index 31.35 01/30/2019 12:00 PM EST Plan of Treatment Upcoming Encounters Date Type Department Care Team (Late st Contact Info) Description 08/22/2024 4:00 PM EDT Office Visit [facility], [address] [place] [address] Garcia Arora MD [address] [place] [address] Health Maintenance Due Date Last Done Comments Hepatitis B Vaccine (1 of 3 - 19+ 3-dose series) 2000 06/26/2008, 01/21/2008, 12/20/2007 Influenza Vaccine (#1) 2023 , 02/13/2022, 12/21/2020, Additional history exists Pneumococcal Vaccine: Pediat rics (0 to 5 Years) and At-Risk Patients (6 to 64 Years) Completed 09/11/2022, 10/02/2013, 04/24/2013 Procedures Procedure Name Priority Date/Time Associated Diagnosis Comments RENAL FUNCTION PANEL Routine 05/20/2024 8:42 AM EST SLE glomerulonephritis syndrome (HCC) Persistent proteinuria Glomerulonephritis CBC AND DIFFERENTIAL Routine 05/20/2024 8:42 AM EST SLE glomerulonephritis syndrome (HCC) Persistent proteinuria Glomerulonephritis PROTEIN / CREATININE RATIO, URINE Routine 05/20/2024 8:42 AM EST SLE glomerulonephritis syndrome (HCC) Persistent proteinuria Glomerulonephritis from Last 3 Months Results * (ABNORMAL) Protein, Total, Random Urine w/Creatinine (Protein/Creat Ratio) (05/20/2024 8:42 AM EST) Creatinine, Ur 87.4 Not Estab. mg/dL [facility] Protein, Ur 88.6 Not Estab. mg/dL [facility] Urine Protein/Creati nine Ratio 1,014(H) 0 - 200 mg/g creat [facility] Urine (Urine, Clean Catch) 05/20/2024 8:42 AM EST 05/20/2024 us Garcia Arora MD LAB URINE ORDERABLES Final Result [facility] [address] [place] [address] * (ABNORMAL) CBC and Differential (05/20/2024 8:42 AM EST) WBC 9.9 3.4 - 10.8 x10E3/uL [facility] RBC 4.16 3.77 - 5.28 x10E6/uL [facility] Hemoglobin 13.6 11.1 - 15.9 g/dL [facility] Hematocrit 40.3 34.0 - 46.6 % [facility] MCV 97 79 - 97 fL [facility] MCH 32.7 26.6 - 33.0 pg [facility] MCHC 33.7 31.5 - 35.7 g/dL [facility] RDW 12.6 11.7 - 15.4 % [facility] Platelets 306 150 - 450 x10E3/uL [facility] Neutrophils Relative 74 Not Estab. % [facility] Lymphocytes Relative 15 Not Estab. % [facility] Monocytes 8 Not Estab. % [facility] Eosinophils Relative 2 Not Estab. % [facility] Basophils Relative 1 Not Estab. % [facility] Neutrophils Absolute 7.4(H) 1.4 - 7.0 x10E3/uL [facility] Lymphocytes Absolute 1.5 0.7 - 3.1 x10E3/uL [facility] Monocytes Absolute 0.7 0.1 - 0.9 x10E3/uL [facility] Eosinophils Absolute 0.2 0.0 - 0.4 x10E3/uL [facility] Basophils Absolute 0.1 0.0 - 0.2 x10E3/uL [facility] Immature Granulocytes 0 Not Estab. % [facility] Immature Grans (Absolute) 0.0 0.0 - 0.1 x10E3/uL [facility] Blood (Blood, Venous) 05/20/2024 8:42 AM EST 05/20/2024 us Garcia Arora MD LAB BLOOD ORDERABLES Final Result [facility] [place] [address] [place] [address] * (ABNORMAL) Renal Function Panel (05/20/2024 8:42 AM EST) Glucose 96 70 - 99 mg/dL [facility] BUN 39(H) 6 - 24 mg/dL [facility] Creatinine 1.66(H) 0.57 - 1.00 mg/dL [facility] eGFR CKD-EPI CR 2020 39(L) >59 mL/min/1.7 3 [facility] BUN/Creatinine Ratio 23 9 - 23 [facility] Sodium 136 134 - 144 mmol/L [facility] Potassium 4.2 3.5 - 5.2 mmol/L [facility] Chloride 96 96 - 106 mmol/L [facility] Bicarbonate (CO2) 23 20 - 29 mmol/L [facility] Calcium 9.9 8.7 - 10.2 mg/dL [facility] Albumin 4.5 3.9 - 4.9 g/dL [facility] Phosphorus 3.5 3.0 - 4.3 mg/dL [facility] Blood (Blood, Venous) 05/20/2024 8:42 AM EST 05/20/2024 us Garcia Arora MD LAB BLOOD ORDERABLES Final Result [facility] [address] [place] [address] from Last 3 Months Insurance [facility] Care Teams Director Treasurer Relationship Specialty Start Date End Date Mayra Santos MD PCP - General 01/21/19
--- OUTSIDE RECORDS SUMMARY | 2024-05-23 07:08 | XMS_ITS | Encounter Summary ---
Author Organization [facility], Address [address] [place] [address] Phone Care Team Providers Care General Road Production Manager Name Role Phone Mayra Santos MD Primary Care Provider [phone] Encounter Details Date Type Department Care Team (Late st Contact Info) Description 01/27/2022 Documentation Only [facility] [address] [place] [address] Carmina [address] [place] [address] [place] [address] Social History Tobacco Use Types [...] Visit [facility] [address] [place] [address] Garcia Arora MD [address] [place] [address] [place] [address] documented as of this encounter Visit Diagnoses Not on filedocumented in this encounter Care Teams General Road Production Manager Relationship Specialty Start Date End Date Mayra Santos MD PCP - General 01/21/19 documented as of this encounter
--- OUTSIDE RECORDS SUMMARY | 2024-05-23 07:08 | XMS_ITS | Encounter Summary ---
Author Organization [facility], Address [address] [address] Phone Care Team Providers Care Wood Machinist Name Role Phone Mayra Santos MD Primary Care Provider [phone] Reason for Visit * Reason Comments Med Refill Encounter Details Date Type Department Care Team (Late st Contact Info) Description 01/26/2024 Refill [facility], [address] [place] [address] Garcia Arora MD [address] [place] [address] [place] [address] Social History Tobacco Use Types [...] Office Visit [facility] [address] [place] [address] Garcia Arora MD [address] [place] [address] [place] [address] documented as of this encounter Visit Diagnoses Not on filedocumented in this encounter Care Teams Wood Machinist Relationship Specialty Start Date End Date Mayra Santos MD PCP - General 01/21/19 documented as of this encounter
--- OUTSIDE RECORDS SUMMARY | 2024-05-23 07:08 | XMS_ITS | Encounter Summary ---
Author Organization [facility], Address [address] [address] Phone Care Team Providers Care Insole Reinforcer Name Role Phone Mayra Santos MD Primary Care Provider [phone] Encounter Details Date Type Department Care Team (Late Contact Info) Description 01/23/2024 Documentation Only [facility] [address] [place] [address] Garcia Arora MD [address] [place] [address] [place] [address] Social History Tobacco Use Types [...] Visit [facility] [address] [place] [address] Garcia Arora MD [address] [place] [address] [place] [address] documented as of this encounter Visit Diagnoses Not on filedocumented in this encounter Care Teams Insole Reinforcer Relationship Specialty Start Date End Date Mayra Santos MD PCP - General 01/21/19 documented as of this encounter
--- OUTSIDE RECORDS SUMMARY | 2024-05-23 07:08 | XMS_ITS | Encounter Summary ---
Author Organization [facility], Address [address] [address] Phone Care Team Providers Care Physician Liaison Name Role Phone Mayra Santos MD Primary Care Provider [phone] Encounter Details Date Type Department Care Team (Late Contact Info) Description 01/27/2022 Documentation Only [facility] [address] [place] [address] Garcia Arora MD [address] [place] [address] [place] [address] Social History Tobacco Use Types [...] Visit [facility] [address] [place] [address] Garcia Arora MD [address] [place] [address] [place] [address] documented as of this encounter Visit Diagnoses Not on filedocumented in this encounter Care Teams Physician Liaison Relationship Specialty Start Date End Date Mayra Santos MD PCP - General 01/21/19 documented as of this encounter
--- OUTSIDE RECORDS SUMMARY | 2024-05-23 07:08 | XMS_ITS | Encounter Summary ---
Author Organization [employer] Address [address] [facility] [address] [place] [address] Care Team Providers Care Planer Off Bearer Name Role Phone Mayra Santos MD Primary Care Provider [phone] Encounter Details Date Type Department Care Team ([facility] st Contact Info) Description 04/29/2024 1:00 PM EST Office Visit [facility] [address] [place] [address] Ivelisse Garcia CNM [address] [place] [address] Amenorrhea (Primary Dx) Social History Tobacco Use Types Packs/Day Years [...] AM EDT documented as of this encounter Last Filed Vital Signs Vital Sign Reading Time Taken Comments Blood Pressure 130/78 04/29/2024 1:11 PM EST Pulse 92 04/29/2024 1:11 PM EST Temperature 36.5 ??C (97.7 ??F) 04/29/2024 1:11 PM ES T Respiratory Rate 19 04/29/2024 1:11 PM EST Oxygen Saturation - - Inhaled Oxygen Concentration - - Weight 76.8 kg (169 lb 6.4 oz) 04/29/2024 1:11 P M EST Height - - Body Mass Index 30.01 10/16/2023 2:16 PM EDT documented in this encounter Progress Notes * Ivelisse Garcia CNM - 04/29/2024 1:00 PM EST Subjective Patient ID: Dolores Mock is a 43 y.o. 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 Pap NIL/HPV neg 10/2021. Previous pap ASCUS, HPV neg x 3. FSH > 100, estradiol 23, normal prolactin in 2020. Normal TSH 2022. On hormone replacement therapy for POI - Estrace 2mg and cyclical micronized progesterone. Feels well, denies ACHES. Denies vasomotor symptoms. LMPabout 3 months ago. No lapse in medication. On systemic tacrolimus. Residential AMAB partner, vasectomy Mammogram BIRADS 1, cat b 12/2023 Pelvic ultrasound 10/2023 with no worrisome findings. Review of Systems Genitourinary: Positive for menstrual problem. Negative for dyspareunia, dysuria, frequency, genital sores, hematuria, pelvic pain, urgency, vaginal bleeding, vaginal discharge and vaginal pain. No abnormal pap, no abnormal bleeding, no breast pain, no breast mass, no nipple discharge Objective BP 130/78 Pulse 92 Temp 97.7 ??F (36.5 ??C) (Temporal) Resp 19 Wt 169 lb 6.4 oz (76.8 kg) BMI 30.01 kg/m?? Physical Exam Constitutional: Appearance: Normal appearance. Neurological: Mental Status: She is alert. Psychiatric: Mood and Affect: Mood normal. Behavior: Behavior normal. Assessment/Plan Diagnoses and all orders for this visit: Amenorrhea - TSH W/Reflex to FT4; Future - Prolactin; Future - hCG, Total, Quantitative; Future Will check TSH/Prl and hcg as precaution and contact with results. Feels well on current regimen. If labs normal, could consider increasing estradiol, although 2mg is within dose range for POI and not having any vasomotor symptoms. Pap 09/2024 Other orders - estradiol (Estrace) 2 MG tablet; Take 1 tablet (2 mg) by mouth Once per day. - progesterone 200 MG capsule; Take x 12 days a month, starting on first of the month documented in this encounter Plan of Treatment Upcoming Encounters Date Type Department Care Team (Late st Contact Info) Description 06/09/2024 3:45 PM EDT Office Visit [facility] [address] [place] [address] Mayra Santos MD [address] [place] [address] Scheduled Orders Name Type Priority Associated Diagnoses Orde r Schedule TSH W/Reflex to FT4 Lab Routine Amenorrhea Expected: 04/29/2024 (Approximate), Expires: 04/29/2025 Prolactin Lab Routine Amenorrhea Expected: 04/29/2024 (Approximate), Expires: 04/29/2025 hCG, Total, Quantitative Lab Routine Amenorrhea Expected: 04/29/2024 (Approximate), Expires: 04/29/2025 documented as of this encounter Visit Diagnoses Diagnosis Amenorrhea- Primary Absence of menstruation documented in this encounter Additional Health Concerns Assessment Noted Time PHQ-9 Depression Total Score: 3 07/14/19 23 11:25 AM EDT documented as of this encounter Care Teams Planer Off Bearer Relationship Specialty Start Date End Date Mayra Santos MD [address] [place] [address] PCP - General Family Medicine 07/24/13 documented as of this encounter
--- OUTSIDE RECORDS SUMMARY | 2024-05-23 07:08 | XMS_ITS | Encounter Summary ---
Author Organization [facility], Address [address] [place] [address] Phone Care Team Providers Care Certified Wellness Program Manager Name Role Phone Mayra Santos MD Primary Care Provider [phone] Encounter Details Date Type Department Care Team (Late st Contact Info) Description 09/26/2023 Documentation Only [facility] [address] [place] [address] Carmina [place] [address] [place] [address] Social History Tobacco Use Types [...] Visit [facility] [address] [place] [address] Garcia Arora MD [address] [place] [address] [place] [address] documented as of this encounter Visit Diagnoses Not on filedocumented in this encounter Care Teams Certified Wellness Program Manager Relationship Specialty Start Date End Date Mayra Santos MD PCP - General 01/21/19 documented as of this encounter
--- OUTSIDE RECORDS SUMMARY | 2024-05-23 07:08 | XMS_ITS | Encounter Summary ---
Author Organization [employer] Address [address] [place] [address] Care Team Providers Care Pulmonary Nurse Practitioner Name Role Phone Mayra Santos MD Primary Care Provider [phone] Encounter Details Date Type Department Care Team (Latest Contact Info) Description 04/29/2024 Travel Social History Tobacco Use Types Packs/Day Years [...] Description 06/09/2024 3:45 PM EDT Office Visit [facility] [address] [place] [address] Mayra Santos MD [address] [place] [address] documented as of this encounter Visit Diagnoses Not on filedocumented in this encounter Additional Health Concerns Assessment Noted Time PHQ-9 Depression Total Score: 3 07/14/19 23 11:25 AM EDT documented as of this encounter Care Teams Pulmonary Nurse Practitioner Relationship Specialty Start Date End Date Mayra Santos MD [address] [place] [address] PCP - General Family Medicine 07/24/13 documented as of this encounter
--- OUTSIDE RECORDS SUMMARY | 2024-05-23 07:08 | XMS_ITS | Encounter Summary ---
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) Mayra Santos MD [address] [place] [address] Phone: tel: fax: Garcia Arora MD [address] [place] [address] Phone: tel: fax: Referral ID Status Reason Start Date Expiration Date V isits Requested Visits Authorized [id number] Closed Specialty Services Required 09/24/2023 09/23/2024 6 6 Encounter Details Date Type Department Care Team (Late st Contact Info) Description 10/26/2023 Orders Only [facility] [address] [place], [place] [phone] Mayra Santos MD [address] [place], [place] Proteinuria, unspecified type (Primary Dx); Glomerulonephritis; Focal segmental glomerulosclerosis; 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) Social History Tobacco Use Types Packs/Day Years [...] Description 06/09/2024 3:45 PM EDT Office Visit [facility] [address] [place] [address] Mayra Santos MD [address] [place] [address] Scheduled Referrals Name Type Priority Associated Diagnoses Orde r Schedule Referral to Nephrology Outpatient Referral Routine Proteinuria, unspecified type Glomerulonephritis 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) Expected: 10/26/2023 (Approximate), Expires: 10/25/2024 documented as of this encounter Visit Diagnoses Diagnosis Proteinuria, unspecified type- Primary Glomerulonephritis Nephritis and nephropathy, not specified as acute or chronic, with unspecified pathological lesion in kidney 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
--- OUTSIDE RECORDS SUMMARY | 2024-05-23 07:08 | XMS_ITS | Encounter Summary ---
Author Organization [email or web address] Address [address] [place] [address] Care Team Providers Care Security Systems Specialist Name Role Phone Mayra Santos MD Primary Care Provider [phone] Encounter Details Date Type Department Care Team (Late st Contact Info) Description 05/23/2024 Orders Only [facility] External Provider, [facility] Social History Tobacco Use Types Packs/Day Years [...] Description 06/09/2024 3:45 PM EDT Office Visit [facility] [address] [facility] [place] [address] Mayra Santos MD [address] [place] [address] documented as of this encounter Procedures Procedure Name Priority Date/Time Associated Diagnosis Comments XR ANKLE 3+ VIEWS LEFT Routine 05/23/2024 6:13 AM EST documented in this encounter Results * XR Ankle 3+ Views Left (05/23/2024 6:13 AM EST) Anatomical Region Laterality Modality Lower Extremities, Ankle Left Radiogr aphic Imaging 05/23/2024 6:13 AM EST Narrative 05/23/2024 6:15 AM EST ? [facility] ?[address] ?[place] [address] ?XRay Report ? Signed ? Patient: Nish,Dolores ?MR#: [id number] ?? [id number] ? : 1980 ?Acct:[id number] ? Age/Sex: 43 / F ?ADM Date: 05/23/24 ? Loc: HO.ED ? Attending Dr: ? Ordering Physician: Generic ED Physician ?? Date of Service: 05/23/24 ?? Procedure(s): XR ankle LT min 3V ?? Accession Number(s): [id number] ? cc: Generic ED Physician; Mayra Santos [...] ? 05/23/[address] ? DD/ 2 ? TD/TT: 05/23/2413 ? Hospice Educator: ? Procedure Note Jakub Duffy - 05/23/2024 [facility] [address] [place] [address] XRay Report Signed Patient: Kandice Mock#: [id number] : 1980Acct:[id number] Age/Sex: 43 / FADM Date: 05/23/24 Loc: .ED Attending Dr: Ordering Physician: Generic ED Physician Date of Service: 05/23/24 Procedure(s): XR ankle LT min 3V Accession Number(s): [id number] cc: Generic ED Physician; Mayra Santos MD [...] in OV> 05/23/24613 DD/ 2 TD/TT: 05/23/24612 Hospice Educator: [facility] External Provider IMG XR PROCEDURES Final Result documented in this encounter Visit Diagnoses Not on filedocumented in this encounter Additional Health Concerns Assessment Noted Time PHQ-9 Depression Total Score: 3 07/14/19 23 11:25 AM EDT documented as of this encounter Care Teams Security Systems Specialist Relationship Specialty Start Date End Date Mayra Santos MD [address] [place] [address] PCP - General Family Medicine 07/24/13 documented as of this encounter
[2024-05-23 07:47] VITALS: BP 127/88; PULSE 110; RESP 18; TEMP 36.9; O2SAT 100
== END 2024-05-23 07:48 | disposition home or self-care (01) ==
PROVIDERS: Emergency Provider Emergency Medicine; PCP Family Medicine
DX: S93.402A Sprain of unspecified ligament of left ankle, initial encounter (principal); X50.1XXA Overexertion from prolonged static or awkward postures, initial encounter; Y93.9 Activity, unspecified; Y92.9 Unspecified place or not applicable; Y99.9 Unspecified external cause status
CPT/HCPCS: 73610; 99283

== ENCOUNTER → 2024-05-23 04:45 | Outpatient (BNV) | payer BC, SELFPAY | PROVIDERS: PCP Family Medicine; Visit Provider Radiology Diagnostic Radiology | DX: M25.572 Pain in left ankle and joints of left foot (principal); M25.472 Effusion, left ankle | CPT/HCPCS: 73610 ==

== ENCOUNTER 2024-06-11 11:02 | Outpatient (REF) | payer BC, SELFPAY ==
--- OUTSIDE RECORDS SUMMARY | 2024-06-11 13:23 | XMS_ITS | Encounter Summary ---
Author Organization [facility], Address [address] [place] [address] Phone Care Team Providers Care Loss Prevention Operations Manager Name Role Phone Mayra Santos MD Primary Care Provider Encounter Details Date Type Department Care Team (Late st Contact Info) Description 09/26/2023 Documentation Only [facility] [address] [place] [address] Carmina Dennis [place] [address] [place] [address] Social History Tobacco Use Types [...] Visit [facility] [address] [place] [address] Garcia Arora MD [address] [place] [address] [place] [address] documented as of this encounter Visit Diagnoses Not on filedocumented in this encounter Care Teams Loss Prevention Operations Manager Relationship Specialty Start Date End Date Mayra Santos MD PCP - General 01/21/19 documented as of this encounter
--- OUTSIDE RECORDS SUMMARY | 2024-06-11 13:23 | XMS_ITS | Clinical Summary ---
Author Organization [facility] [place], Address [address] [place] [address] [place] [address] Phone Care Team Providers Care Development Mechanic Name Role Phone Mayra Santos MD Primary Care Provider [phone] Allergies No known active allergies Medications norgestimate-et [...] 0 Active ergocalciferol (VITAMIN D2) 1.25 MG (74780 UT) capsule TAKE 1 CAPSULE POR V [...] Visit [facility] [address] [place] [address] Garcia Arora MD SLE glomerulonephritis syndrome (HCC) [...] Visit [facility] [place], [address] [place] [address] Garcia Arora MD [address] [place] [address] Health Maintenance Due Date Last Done [...] Creatinine, Ur 87.4 Not Estab. mg/dL [facility] Protein, Ur 88.6 Not Estab. mg/dL [facility] Urine Protein/Creati nine Ratio 1,014(H) 0 - 200 mg/g creat [facility] Urine (Urine, Clean Catch) 05/20/2024 8:42 AM EST 05/20/2024 us Garcia Arora MD LAB URINE ORDERABLES Final Result [facility] [address] [place] [address] * (ABNORMAL) CBC and Differential (05/20/2024 8:42 AM EST) WBC 9.9 3.4 - 10.8 x10E3/uL [facility] RBC 4.16 3.77 - 5.28 x10E6/uL [facility] Hemoglobin 13.6 11.1 - 15.9 g/dL [facility] Hematocrit 40.3 34.0 - 46.6 % [facility] MCV 97 79 - 97 fL [facility] MCH 32.7 26.6 - 33.0 pg [facility] MCHC 33.7 31.5 - 35.7 g/dL [facility] RDW 12.6 11.7 - 15.4 % [facility] Platelets 306 150 - 450 x10E3/uL [facility] Neutrophils Relative 74 Not Estab. % [facility] Lymphocytes Relative 15 Not Estab. % [facility] Monocytes 8 Not Estab. % [facility] Eosinophils Relative 2 Not Estab. % [facility] Basophils Relative 1 Not Estab. % [facility] Neutrophils Absolute 7.4(H) 1.4 - 7.0 x10E3/uL [facility] Lymphocytes Absolute 1.5 0.7 - 3.1 x10E3/uL [facility] Monocytes Absolute 0.7 0.1 - 0.9 x10E3/uL [facility] Eosinophils Absolute 0.2 0.0 - 0.4 x10E3/uL [facility] Basophils Absolute 0.1 0.0 - 0.2 x10E3/uL [facility] Immature Granulocytes 0 Not Estab. % [facility] Immature Grans (Absolute) 0.0 0.0 - 0.1 x10E3/uL [facility] Blood (Blood, Venous) 05/20/2024 8:42 AM EST 05/20/2024 us Garcia Arora MD LAB BLOOD ORDERABLES Final Result [facility] [address] [place] [address] * (ABNORMAL) Renal Function Panel (05/20/2024 8:42 AM EST) Glucose 96 70 - 99 mg/dL [facility] BUN 39(H) 6 - 24 mg/dL [facility] Creatinine 1.66(H) 0.57 - 1.00 mg/dL [facility] eGFR CKD-EPI CR 2020 39(L) >59 mL/min/1.7 3 [facility] BUN/Creatinine Ratio 23 9 - 23 [facility] Sodium 136 134 - 144 mmol/L [facility] Potassium 4.2 3.5 - 5.2 mmol/L [facility] Chloride 96 96 - 106 mmol/L [facility] Bicarbonate (CO2) 23 20 - 29 mmol/L [facility] Calcium 9.9 8.7 - 10.2 mg/dL [facility] Albumin 4.5 3.9 - 4.9 g/dL [facility] Phosphorus 3.5 3.0 - 4.3 mg/dL [facility] Blood (Blood, Venous) 05/20/2024 8:42 AM EST 05/20/2024 us Garcia Arora MD LAB BLOOD ORDERABLES Final Result [facility] [address] [place] [address] from Last 3 Months Insurance [facility] Care Teams Development Mechanic Relationship Specialty Start Date End Date Mayra Santos MD PCP - General 01/21/19
--- OUTSIDE RECORDS SUMMARY | 2024-06-11 13:23 | XMS_ITS | Encounter Summary ---
Author Organization [facility], Address [address] [address] Phone Care Team Providers Care Security Rep Name Role Phone Mayra Santos MD Primary Care Provider [phone] Encounter Details Date Type Department Care Team (Late Contact Info) Description 01/27/2022 Documentation Only [facility] [address] [place] [address] Garcia Arora MD [address] [place] [address] [place] [address] Social History Tobacco Use Types [...] Visit [facility] [address] [place] [address] Garcia Arora MD [address] [place] [address] [place] [address] documented as of this encounter Visit Diagnoses Not on filedocumented in this encounter Care Teams Security Rep Relationship Specialty Start Date End Date Mayra Santos MD PCP - General 01/21/19 documented as of this encounter
--- OUTSIDE RECORDS SUMMARY | 2024-06-11 13:23 | XMS_ITS | Encounter Summary ---
Author Organization [facility] [place], Address [address] [address] Phone Care Team Providers Care Sanitation Supervisor Name Role Phone Mayra Santos MD Primary Care Provider Reason for Visit * Reason Comments Med Refill Encounter Details Date Type Department Care Team (Late st Contact Info) Description 01/26/2024 Refill [facility] [place], [address] [place] [address] Garcia Arora MD [address] [place] [address] [place] [address] Social History Tobacco Use Types [...] Office Visit [facility] [address] [place] [address] Garcia Arora MD [address] [place] [address] [place] [address] documented as of this encounter Visit Diagnoses Not on filedocumented in this encounter Care Teams Sanitation Supervisor Relationship Specialty Start Date End Date Mayra Santos MD PCP - General 01/21/19 documented as of this encounter
--- OUTSIDE RECORDS SUMMARY | 2024-06-11 13:23 | XMS_ITS | Encounter Summary ---
Author Organization [facility], Address [address] [address] Phone Care Team Providers Care Glost Tile Shader Name Role Phone Mayra Santos MD Primary Care Provider [phone] Reason for Visit * Nephrology Services (Routine) - Authorized Specialty Diagnoses / Procedures Referred By Contac t Referred To Contact Nephrology Diagnoses Proteinuria PLS VERIFY INSURANCE Procedures ESTABLISHED Mayra Santos MD [address] [place] [address] Phone: tel: fax: Garcia Arora MD [address] [place] [address] [place] [address] Phone: tel: fax: Referral ID Status Reason Start Date Expiration Date V isits Requested Visits Authorized [id number] Authorized 09/24/2023 09/23/2024 6 6 Encounter Details Date Type Department Care Team (Latest Contact Info) Description 05/21/2024 3:45 PM EST Office Visit [facility], [address] [place] [address] Garcia Arora MD [address] [place] [address] [place] [address] SLE glomerulonephritis syndrome (HCC) (Primary [...] 11 ??? ergocalciferol (VITAMIN D2) 1.25 MG (32025 UT) capsule TAKE 1 CAPSULE POR V [...] ??? losartan (COZAAR) 100 MG tablet TOME BIRGIDO TABLETA TODOS LOS D ??? Magnesium 250 [...] Visit [facility], [address] [place] [address] Garcia Arora MD [address] [place] [address] 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
--- OUTSIDE RECORDS SUMMARY | 2024-06-11 13:23 | XMS_ITS | Encounter Summary ---
Author Organization [facility], Address [address] [address] Phone Care Team Providers Care Junior Electrical Engineer Name Role Phone Mayra Santos MD Primary Care Provider [phone] Reason for Visit * Reason Onset Date Comments Med Refill 04/28/2022 Encounter Details Date Type Department Care Team (Late st Contact Info) Description 04/28/2022 Refill [facility] [address] [place] [address] Garcia Aroar MD [address] [place] [address] [place] [address] Social History Tobacco Use Types [...] Visit [facility] [address] [place] [address] Garcia Arora MD [address] [place] [address] [place] [address] documented as of this encounter Visit Diagnoses Not on filedocumented in this encounter Care Teams Junior Electrical Engineer Relationship Specialty Start Date End Date Mayra Santos MD PCP - General 01/21/19 documented as of this encounter
--- OUTSIDE RECORDS SUMMARY | 2024-06-11 13:23 | XMS_ITS | Encounter Summary ---
Author Organization [facility], Address [address] [place] [address] Phone Care Team Providers Care Key Holder Name Role Phone Mayra Santos MD Primary Care Provider [phone] Encounter Details Date Type Department Care Team (Late st Contact Info) Description 01/21/2024 Documentation Only [facility] [address] [place] [address] Carmina Dennis [place] [address] [place] [address] Social History Tobacco Use Types [...] [facility] [address] [place] [address] Garcia Arora MD [address] [place] [address] [place] [address] documented as of this encounter Visit Diagnoses Not on filedocumented in this encounter Care Teams Key Holder Relationship Specialty Start Date End Date Mayra Santos MD PCP - General 01/21/19 documented as of this encounter
--- OUTSIDE RECORDS SUMMARY | 2024-06-11 13:23 | XMS_ITS | Encounter Summary ---
Author Organization [facility] [place], Address [address] [place] [address] Phone Care Team Providers Care Applications Manager Name Role Phone Mayra Santos MD Primary Care Provider [phone] Encounter Details Date Type Department Care Team (Late st Contact Info) Description 01/27/2022 Documentation Only [facility] [address] [place] [address] Carmina Dennis [place] [address] [place] [address] Social History Tobacco Use Types [...] Visit [facility] [address] [place] [address] Garcia Arora MD [address] [place] [address] [place] [address] documented as of this encounter Visit Diagnoses Not on filedocumented in this encounter Care Teams Applications Manager Relationship Specialty Start Date End Date Mayra Santos MD PCP - General 01/21/19 documented as of this encounter
--- OUTSIDE RECORDS SUMMARY | 2024-06-11 13:23 | XMS_ITS | Encounter Summary ---
Author Organization [facility] [place], Address [address] [address] Phone Care Team Providers Care Route Rider Supervisor Name Role Phone Mayra Santos MD Primary Care Provider [phone] Encounter Details Date Type Department Care Team (Late Contact Info) Description 01/23/2024 Documentation Only [facility] [address] [place] [address] Garcia Arora MD [address] [place] [address] [place] [address] Social History Tobacco Use Types [...] Visit [facility] [address] [place] [address] Garcia Arora MD [address] [place] [address] [place] [address] documented as of this encounter Visit Diagnoses Not on filedocumented in this encounter Care Teams Route Rider Supervisor Relationship Specialty Start Date End Date Mayra Santos MD PCP - General 01/21/19 documented as of this encounter
--- OUTSIDE RECORDS SUMMARY | 2024-06-11 13:23 | XMS_ITS | Encounter Summary ---
Author Organization [facility] [place], Address [address] [address] Phone Care Team Providers Care Cork Painter And Grader Name Role Phone Mayra Santos MD Primary Care Provider [phone] Encounter Details Date Type Department Care Team (Late Contact Info) Description 04/17/2022 Documentation Only [facility] [address] [place] [address] Garcia Arora MD [address] [place] [address] [place] [address] Social History Tobacco Use Types [...] Visit [facility] [address] [place] [address] Garcia Arora MD [address] [place] [address] [place] [address] documented as of this encounter Visit Diagnoses Not on filedocumented in this encounter Care Teams Cork Painter And Grader Relationship Specialty Start Date End Date Mayra Santos MD PCP - General 01/21/19 documented as of this encounter
--- OUTSIDE RECORDS SUMMARY | 2024-06-11 13:23 | XMS_ITS | Encounter Summary ---
Author Organization [facility], Address [address] [address] Phone Care Team Providers Care Cardiac Cath Technologist Name Role Phone Mayra Santos MD Primary Care Provider [phone] Encounter Details Date Type Department Care Team (Late Contact Info) Description 01/23/2024 Documentation Only [facility] [address] [place] [address] Garcia Arora MD [address] [place] [address] [place] [address] Social History Tobacco Use Types [...] Visit [facility] [address] [place] [address] Garcia Arora MD [address] [place] [address] [place] [address] documented as of this encounter Visit Diagnoses Not on filedocumented in this encounter Care Teams Cardiac Cath Technologist Relationship Specialty Start Date End Date Mayra Santos MD PCP - General 01/21/19 documented as of this encounter
[2024-06-11 13:39] LABS: MANUAL DIFF FLAG NO
[2024-06-11 13:51] LABS: Basophils Absolute Auto 0.1 X10*3/uL (0.0-0.2); Basophils Percent Auto 0.7 % (0-2); Eosinophils Absolute Auto 0.2 X10*3/uL (0.0-0.4); Eosinophils Percent Auto 2.7 % (0-4); Hematocrit 36.8 % (37.0-47.0); Hemoglobin 12.3 g/dl (12.0-16.0); Imm Gran Abs Auto 0.04 X10*3/uL (0.00-0.03); Imm Gran Pct Auto 0.5 % (0.0-0.4); Lymphocytes Absolute Auto 1.3 X10*3/uL (1.2-4.9); Lymphocytes Percent Auto 15.5 % (20-40); Mean Corpuscular HGB Conc 33.4 g/dl (31.0-35.0); Mean Corpuscular Hemoglobin 32.1 pg (27.0-33.0); Mean Corpuscular Volume 96.1 fL (80.0-98.0); Mean Platelet Volume 9.2 fL (9.4-12.3); Monocytes Absolute Auto 0.8 X10*3/uL (0.1-1.2); Monocytes Percent Auto 9.3 % (2-11); Neutrophils Absolute Auto 5.9 x10*3/uL (2.0-8.3); Neutrophils Percent Auto 71.3 % (45-73); Platelet Count 367 X10*3/uL (160-400); Red Blood Count 3.83 X10*6/uL (4.20-5.50); Red Cell Distribution Width 12.6 % (11.0-16.0); White Blood Count 8.3 X10*3/uL (4.8-10.8)
[2024-06-11 13:55] LABS: Estimated Average Glucose 91 mg/dL; Hemoglobin A1c % 4.8 % (<6.0); Total Hemoglobin (HGBA1C) 3320.1287 umol/L
[2024-06-11 14:07] LABS: Alanine Aminotransferase 11 U/L (0-31); Albumin Level 3.6 g/dL (3.5-5.0); Alkaline Phosphatase 99 U/L (39-117); Anion Gap 10 (12-20); Aspartate Amino Transferase 17 U/L (5-31); Bilirubin Total 0.2 mg/dL (0.0-1.0); Blood Urea Nitrogen 20 mg/dL (9-16); C Reactive Protein 1.04 mg/dL (< or = 0.50); Calcium 9.2 mg/dL (8.4-10.2); Carbon Dioxide 25 mmol/L (22-29); Chloride 107 mmol/L (96-108); Cholesterol 251 mg/dL (<200); Estimated Glomerular Filt Rate 47; Glucose Random 70 mg/dL (60-115); HDL Cholesterol 66 mg/dL (>40); LDL Cholesterol Calculated 139 mg/dL (<100); Lipase 77 U/L (8-78); Potassium 4.7 mmol/L (3.3-5.1); Sodium 137 mmol/L (135-145); Total Protein 7.5 g/dL (6.5-8.0); Triglycerides 233 mg/dL (<150); Uric Acid 6.9 mg/dL (2.4-5.7)
[2024-06-11 14:27] LABS: TSH reflex Free T4 2.39 uIU/mL (0.32-4.0)
[2024-06-11 14:43] LABS: Erythrocyte Sedimentation Rate 51 MM/HR (0-20)
[2024-06-11 15:26] LABS: Reflex LDLD? No
== END 2024-06-11 11:03 | disposition home or self-care (01) ==
LOC: HO.HHCL 11:02
PROVIDERS: Visit Provider Family Medicine
DX: Z13.1 Encounter for screening for diabetes mellitus (principal); I10 Essential (primary) hypertension; M25.572 Pain in left ankle and joints of left foot; R10.10 Upper abdominal pain, unspecified; E78.5 Hyperlipidemia, unspecified
CPT/HCPCS: 36415; 80053; 80061; 83036; 83690; 84443; 84550; 85025; 85652; 86140

== ENCOUNTER 2024-06-17 09:56 | Outpatient (AMB) | payer BC, SELFPAY ==
--- NOTE | 2024-06-17 10:09 | MHC.OFFVIS ---
Vital Signs 06/17/24 10:18 Height 5 ft 3 in Weight 165 lb BMI 29.2 Handedness Right Intake Visit Reasons: New prob- ED f/u Left ankle sprain DOI 05/20/24 Intake Note: Dolores is a 43 year old female who presents today with a tall walking boot for a evaluation of her left ankle sprain,DOI 05/20/24. Patient reports she was going down the stairs and her ankle twisted. Patient does have a history of gout which her PCP gave her medication for. She states that her ankle is feeling better she was taking her medication that her PCP prescribed for her flair up and it helped with the swelling. Denies numbness and tingling. Allergies lisinopril Allergy (Intermediate, Verified 06/17/24 10:13) Cough adhesive tape Allergy (Verified 06/17/24 10:13) Rash HPI HPI New prob- ED f/u Left ankle sprain DOI 05/20/24: Details: The patient is a 43-year-old female presenting with left ankle pain. The condition began following a twisting injury sustained while descending stairs on May 21. She sought emergency care two days later due to intense pain, where an X-ray indicated no major structural abnormalities and treatment for an ankle sprain was initiated including a tall walking boot. Swelling and discomfort remained high, prompting further evaluation by her primary physician, who conducted blood tests diagnosing her with a gout flare. Subsequent gout treatment saw an effective amelioration of symptoms but she remained in the boot as directed. Presently, the patient notes a decrease in pain levels and an absence of acute distress while cautiously avoiding intensified use of the affected area. [facility] Medical History Atypical squamous cells of undetermined significance (ASC-US) on cervical Pap smear Well woman exam Hyperparathyroidism Goiter Systemic lupus erythematosus Vitamin D deficiency Osteopenia Premature ovarian failure Surgical History Hx of wisdom tooth extraction Hx of section Family History Mother Thyroid disease Autoimmune disorder Brother Cancer Father Diabetes Social History Household Members: Spouse and Children Housing: House Alcohol intake: current Alcohol intake frequency: holidays/special occasions only Patient Tobacco Use Status: Former Tobacco user Years Smoked: 20 Substance Use Type: Marijuana Current occupational status: employed 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 [employer] Sexual orientation: Straight/Heterosexual Gender identity: Female Female Reproductive History Menstrual Age of Menarche: 11 Review of Systems Const All systems reviewed & are unremarkable except as noted in HPI and below Physical Exam Vital Signs: BMI result Body Mass Index 29.2 Const General: cooperative, healthy appearing and no acute distress Resp Effort & Inspection: normal respiratory effort and able to speak in complete sentences Cardio Rate: regular rate Peripheral pulses: Peripheral pulses 2+ throughout Skin Lesions: no lesions Rashes: no rashes Extrem Other: Left ankle: Normal to inspection. No ecchymosis, erythema, or edema. Patient is able to demonstrate dorsiflexion, plantar flexion, pronation and supination. Negative anterior drawer. Sensation intact. Pedal Pulse intact. Assessment & Plan Assessment & Plan (1) Gout of left ankle: Code(s): M10.9 - Gout, unspecified Category: Medical Plan I discussed with the patient the diagnosis of a gout flare as the underlying cause of the recent ankle symptoms and the appropriateness of continuing current therapeutic interventions that have already shown positive effects. The patient should continue to receive treatment for a gout flare which was determined to be the primary cause of ankle pain. Transition away from the boot to a regular shoe should proceed with caution, assessing for recurrent pain or swelling. She can use [id number] anti-inflammatories and apply ice as needed. No further imaging or therapy trials are warranted pending symptom resolution. The patient should report any changes in symptoms or lack of further improvements. X-rays of the left ankle which were obtained while in the office today and were reviewed by me, Elaina Adams PA-C, revealed no acute fracture dislocation. There is some lateral soft tissue edema. Patient was informed and verbally consented to the use of an ambient scribe for clinic note documentation during this visit. Coding Level of Care Code Est Pt Level 3 (13697) Diagnoses Gout of left ankle M10.9
[2024-06-17 10:18] VITALS: BMI 29.2
--- OUTSIDE RECORDS SUMMARY | 2024-06-17 11:36 | XMS_ITS | Encounter Summary ---
Author Organization [facility] [place], Address [address] [address] Phone Care Team Providers Care Metal Furniture Repairer Name Role Phone Mayra Santos MD Primary Care Provider [phone] Encounter Details Date Type Department Care Team (Late Contact Info) Description 01/27/2022 Documentation Only [facility] [address] [place] [address] Garcia Arora MD [address] [place] [address] [place] [address] Social History Tobacco Use Types [...] Visit [facility] [address] [place] [address] Garcia Arora MD [address] [place] [address] [place] [address] documented as of this encounter Visit Diagnoses Not on filedocumented in this encounter Care Teams Metal Furniture Repairer Relationship Specialty Start Date End Date Mayra Santos MD PCP - General 01/21/19 documented as of this encounter
--- OUTSIDE RECORDS SUMMARY | 2024-06-17 11:36 | XMS_ITS | Encounter Summary ---
Author Organization [facility] [place], Address [address] [place] [address] Phone Care Team Providers Care Technical Translator Name Role Phone Mayra Santos MD Primary Care Provider [phone] Encounter Details Date Type Department Care Team (Late st Contact Info) Description 01/27/2022 Documentation Only [facility] [address] [place] [address] Carmina Dennis [place] [address] [place] [address] Social History Tobacco Use Types [...] Visit [facility] [address] [facility] [place] [address] Garcia Arora MD [address] [place] [address] [place] [address] documented as of this encounter Visit Diagnoses Not on filedocumented in this encounter Care Teams Technical Translator Relationship Specialty Start Date End Date Mayra Santos MD PCP - General 01/21/19 documented as of this encounter
--- OUTSIDE RECORDS SUMMARY | 2024-06-17 11:37 | XMS_ITS | Encounter Summary ---
Author Organization [facility] [place], Address [address] [address] Phone Care Team Providers Care Supply Chain Vice President Name Role Phone Mayra Santos MD Primary Care Provider [phone] Reason for Visit * Reason Onset Date Comments Med Refill 04/28/2022 Encounter Details Date Type Department Care Team (Late st Contact Info) Description 04/28/2022 Refill [facility] [address] [place] [address] Garcia Arora MD [address] [place] [address] [place] [address] Social History Tobacco Use Types [...] [facility] [address] [place] [address] Garcia Arora MD [address] [place] [address] [place] [address] documented as of this encounter Visit Diagnoses Not on filedocumented in this encounter Care Teams Supply Chain Vice President Relationship Specialty Start Date End Date Mayra Santos MD PCP - General 01/21/19 documented as of this encounter
--- OUTSIDE RECORDS SUMMARY | 2024-06-17 11:37 | XMS_ITS | Encounter Summary ---
Author Organization [facility] [place], Address [address] [address] Phone Care Team Providers Care Signal Intelligence Analyst Name Role Phone Mayra Santos MD Primary Care Provider [phone] Encounter Details Date Type Department Care Team (Late Contact Info) Description 04/17/2022 Documentation Only [facility] [address] [place] [address] Garcia Arora MD [address] [place] [address] [place] [address] Social History Tobacco Use Types [...] Visit [facility] [address] [place] [address] Garcia Arora MD [address] [place] [address] [place] [address] documented as of this encounter Visit Diagnoses Not on filedocumented in this encounter Care Teams Signal Intelligence Analyst Relationship Specialty Start Date End Date Mayra Santos MD PCP - General 01/21/19 documented as of this encounter
--- OUTSIDE RECORDS SUMMARY | 2024-06-17 11:37 | XMS_ITS | Encounter Summary ---
Author Organization [facility] [place], Address [address] [address] Phone Care Team Providers Care Infant Childcare Provider Name Role Phone Mayra Santos MD Primary Care Provider Reason for Visit * Reason Comments Med Refill Encounter Details Date Type Department Care Team (Late st Contact Info) Description 01/26/2024 Refill [facility] [place], [address] [place] [address] Garcia Arora MD [address] [place] [address] [place] [address] Social History Tobacco Use Types [...] Office Visit [facility] [address] [place] [address] Garcia Arora MD [address] [place] [address] [place] [address] documented as of this encounter Visit Diagnoses Not on filedocumented in this encounter Care Teams Infant Childcare Provider Relationship Specialty Start Date End Date Mayra Santos MD PCP - General 01/21/19 documented as of this encounter
--- OUTSIDE RECORDS SUMMARY | 2024-06-17 11:37 | XMS_ITS | Encounter Summary ---
Author Organization [facility] [place], Address [address] [place] [address] Phone Care Team Providers Care Software Support Analyst Name Role Phone Mayra Santos MD Primary Care Provider [phone] Encounter Details Date Type Department Care Team (Late st Contact Info) Description 09/26/2023 Documentation Only [facility] [address] [place] [address] Carmina Dennis [place] [address] [place] [address] Social History Tobacco Use Types [...] Visit [facility] [address] [facility] [place] [address] Garcia Arora MD [address] [place] [address] [place] [address] documented as of this encounter Visit Diagnoses Not on filedocumented in this encounter Care Teams Software Support Analyst Relationship Specialty Start Date End Date Mayra Santos MD PCP - General 01/21/19 documented as of this encounter
--- OUTSIDE RECORDS SUMMARY | 2024-06-17 11:37 | XMS_ITS | Encounter Summary ---
Author Organization [facility] [place], Address [address] [place] [address] Phone Care Team Providers Care Seaming Inspector Name Role Phone Mayra Santos MD Primary Care Provider [phone] Encounter Details Date Type Department Care Team (Late st Contact Info) Description 01/21/2024 Documentation Only [facility] [address] [place] [address] Carmina Dennis [place] [address] [place] [address] Social History Tobacco Use Types [...] Visit [facility] [address] [facility] [address] Garcia Arora MD [address] [place] [address] [place] [address] documented as of this encounter Visit Diagnoses Not on filedocumented in this encounter Care Teams Seaming Inspector Relationship Specialty Start Date End Date Mayra Santos MD PCP - General 01/21/19 documented as of this encounter
--- OUTSIDE RECORDS SUMMARY | 2024-06-17 11:37 | XMS_ITS | Encounter Summary ---
Author Organization [facility] [place], Address [address] [address] Phone Care Team Providers Care Road Design Engineer Name Role Phone Mayra Santos MD Primary Care Provider [phone] Encounter Details Date Type Department Care Team (Late Contact Info) Description 01/23/2024 Documentation Only [facility] [address] [place] [address] Garcia Arora MD [address] [place] [address] [place] [address] Social History Tobacco Use Types [...] Visit [facility] [address] [place] [address] Garcia Arora MD [address] [place] [address] [place] [address] documented as of this encounter Visit Diagnoses Not on filedocumented in this encounter Care Teams Road Design Engineer Relationship Specialty Start Date End Date Mayra Santos MD PCP - General 01/21/19 documented as of this encounter
--- OUTSIDE RECORDS SUMMARY | 2024-06-17 11:37 | XMS_ITS | Clinical Summary ---
Author Organization [facility] [place], Address [address] [place] [address] [place] [address] Phone Care Team Providers Care Instant Powder Supervisor Name Role Phone Mayra Santos MD Primary Care Provider [phone] Allergies No known active allergies Medications norgestimate-et [...] 0 Active ergocalciferol (VITAMIN D2) 1.25 MG (13547 UT) capsule TAKE 1 CAPSULE POR V [...] Visit [facility] [address] [place] [address] Garcia Arora MD SLE glomerulonephritis syndrome (HCC) [...] Visit [facility] [place], [address] [facility] [place] [address] Garcia Arora MD [address] [facility] [place] [address] Health Maintenance Due Date Last Done [...] Creatinine, Ur 87.4 Not Estab. mg/dL [facility] Protein, Ur 88.6 Not Estab. mg/dL [facility] Urine Protein/Creati nine Ratio 1,014(H) 0 - 200 mg/g creat [facility] Urine (Urine, Clean Catch) 05/20/2024 8:42 AM EST 05/20/2024 us Garcia Arora MD LAB URINE ORDERABLES Final Result [facility] [address] [place] [address] * (ABNORMAL) CBC and Differential (05/20/2024 8:42 AM EST) WBC 9.9 3.4 - 10.8 x10E3/uL [facility] RBC 4.16 3.77 - 5.28 x10E6/uL [facility] Hemoglobin 13.6 11.1 - 15.9 g/dL [facility] Hematocrit 40.3 34.0 - 46.6 % [facility] MCV 97 79 - 97 fL [facility] MCH 32.7 26.6 - 33.0 pg [facility] MCHC 33.7 31.5 - 35.7 g/dL [facility] RDW 12.6 11.7 - 15.4 % [facility] Platelets 306 150 - 450 x10E3/uL [facility] Neutrophils Relative 74 Not Estab. % [facility] Lymphocytes Relative 15 Not Estab. % [facility] Monocytes 8 Not Estab. % [facility] Eosinophils Relative 2 Not Estab. % [facility] Basophils Relative 1 Not Estab. % [facility] Neutrophils Absolute 7.4(H) 1.4 - 7.0 x10E3/uL [facility] Lymphocytes Absolute 1.5 0.7 - 3.1 x10E3/uL [facility] Monocytes Absolute 0.7 0.1 - 0.9 x10E3/uL [facility] Eosinophils Absolute 0.2 0.0 - 0.4 x10E3/uL [facility] Basophils Absolute 0.1 0.0 - 0.2 x10E3/uL [facility] Immature Granulocytes 0 Not Estab. % [facility] Immature Grans (Absolute) 0.0 0.0 - 0.1 x10E3/uL [facility] Blood (Blood, Venous) 05/20/2024 8:42 AM EST 05/20/2024 us Garcia Arora MD LAB BLOOD ORDERABLES Final Result [facility] [place] [address] [place] [address] * (ABNORMAL) Renal Function Panel (05/20/2024 8:42 AM EST) Glucose 96 70 - 99 mg/dL [facility] BUN 39(H) 6 - 24 mg/dL [facility] Creatinine 1.66(H) 0.57 - 1.00 mg/dL [facility] eGFR CKD-EPI CR 2020 39(L) >59 mL/min/1.7 3 [facility] BUN/Creatinine Ratio 23 9 - 23 [facility] Sodium 136 134 - 144 mmol/L [facility] Potassium 4.2 3.5 - 5.2 mmol/L [facility] Chloride 96 96 - 106 mmol/L [facility] Bicarbonate (CO2) 23 20 - 29 mmol/L [facility] Calcium 9.9 8.7 - 10.2 mg/dL [facility] Albumin 4.5 3.9 - 4.9 g/dL [facility] Phosphorus 3.5 3.0 - 4.3 mg/dL [facility] Blood (Blood, Venous) 05/20/2024 8:42 AM EST 05/20/2024 us Garcia Arora MD LAB BLOOD ORDERABLES Final Result [facility] [address] [place] [address] from Last 3 Months Insurance [facility] Care Teams Instant Powder Supervisor Relationship Specialty Start Date End Date Mayra Santos MD PCP - General 01/21/19
--- OUTSIDE RECORDS SUMMARY | 2024-06-17 11:37 | XMS_ITS | Encounter Summary ---
Author Organization [facility] [place], Address [address] [address] Phone Care Team Providers Care Laundry Folder Name Role Phone Mayra Santos MD Primary Care Provider Encounter Details Date Type Department Care Team (Late Contact Info) Description 01/23/2024 Documentation Only [facility] [address] [place] [address] Garcia Arora MD [address] [place] [address] [place] [address] Social History Tobacco Use Types [...] Visit [facility] [address] [place] [address] Garcia Arora MD [address] [place] [address] [place] [address] documented as of this encounter Visit Diagnoses Not on filedocumented in this encounter Care Teams Laundry Folder Relationship Specialty Start Date End Date Mayra Santos MD PCP - General 01/21/19 documented as of this encounter
== END 2024-06-17 10:28 | disposition home or self-care (01) ==
LOC: HO.HOS 09:56
PROVIDERS: PCP Family Medicine; Visit Provider Physician Assistant
DX: M10.9 Gout, unspecified (principal)
CPT/HCPCS: 99213

== ENCOUNTER 2024-07-09 | Outpatient (REF) | payer BC, SELFPAY ==
[2024-07-10 12:49] LABS: Adenovirus PCR Not Detected (Not Detect.); Bordetella parapertussis PCR Not Detected (Not Detect.); Bordetella pertussis PCR Not Detected (Not Detect.); Chlamydia pneumoniae PCR Not Detected (Not Detect.); Coronavirus 229E PCR Not Detected (Not Detect.); Coronavirus HKU1 PCR Not Detected (Not Detect.); Coronavirus NL63 PCR Not Detected (Not Detect.); Coronavirus OC43 PCR Not Detected (Not Detect.); Human metapneumovirus PCR Not Detected (Not Detect.); Influenza A PCR Not Detected (Not Detect.); Influenza B PCR Not Detected (Not Detect.); Mycoplasma pneumoniae PCR Not Detected (Not Detect.); Parainfluenza 1 PCR Not Detected (Not Detect.); Parainfluenza 2 PCR Not Detected (Not Detect.); Parainfluenza 3 PCR Not Detected (Not Detect.); Parainfluenza 4 PCR Not Detected (Not Detect.); RSV PCR Not Detected (Not Detect.); Rhino/Enterovirus PCR Not Detected (Not Detect.)
[2024-07-10 12:54] LABS: Influenza A H1 PCR Not Detected (Not Detect.); Influenza A H1-2009 PCR Not Detected (Not Detect.); Influenza A H3 PCR Not Detected (Not Detect.); SARS-CoV-2 PCR Not Detected (Not Detect.)
--- OUTSIDE RECORDS SUMMARY | 2024-07-10 13:21 | XMS_ITS | Encounter Summary ---
Author Organization [facility] [place], Address [address] [place] [address] Phone Care Team Providers Care Munitions Factory Worker Name Role Phone Mayra Santos MD Primary Care Provider [phone] Encounter Details Date Type Department Care Team (Late st Contact Info) Description 07/09/2024 Telephone [facility] [place], [address] [place] [address] [place] [address] [place] [address] Social History Tobacco Use Types Packs/Day [...] on file documented as of this encounter Miscellaneous Notes * Telephone Encounter - Carmina Dennis MA - 07/09/2024 2:41 PM EDT Pt called in states she's been feeling weird low grade fever, chills and a weird pain in the back of her neck she is currently walking into urgent care to be seen. She is concerned and would like to speak to you she can be reached at [phone] documented in this encounter Plan of Treatment Upcoming Encounters Date Type Department Care Team (Late st Contact Info) Description 08/22/2024 4:00 PM EDT Office Visit [facility] [place], [address] [facility] [place] [address] Garcia Arora MD [address] [facility] [place] [address] documented as of this encounter Visit Diagnoses Not on filedocumented in this encounter Care Teams Munitions Factory Worker Relationship Specialty Start Date End Date Mayra Santos MD PCP - General 01/21/19 documented as of this encounter
--- OUTSIDE RECORDS SUMMARY | 2024-07-10 13:21 | XMS_ITS | Encounter Summary ---
Author Organization [facility] [place], Address [address] [place] [address] Phone Care Team Providers Care Heading Up Machine Operator Name Role Phone Mayra Santos MD Primary Care Provider [phone] Encounter Details Date Type Department Care Team (Late st Contact Info) Description 01/21/2024 Documentation Only [facility] [address] [place] [address] Carmina Dennis [place] [address] [place] [address] Social History Tobacco Use Types [...] Visit [facility] [address] [facility] [address] [place] [address] Garcia Arora MD [address] [place] [address] [place] [address] documented as of this encounter Visit Diagnoses Not on filedocumented in this encounter Care Teams Heading Up Machine Operator Relationship Specialty Start Date End Date Mayra Santos MD PCP - General 01/21/19 documented as of this encounter
--- OUTSIDE RECORDS SUMMARY | 2024-07-10 13:21 | XMS_ITS | Encounter Summary ---
Author Organization [facility] [place], Address [address] [address] Phone Care Team Providers Care Fan Installer Name Role Phone Mayra Santos MD Primary Care Provider [phone] Encounter Details Date Type Department Care Team (Late Contact Info) Description 01/23/2024 Documentation Only [facility] [address] [place] [address] Garcia Arora MD [address] [place] [address] [place] [address] Social History Tobacco Use Types [...] Visit [facility] [address] [place] [address] Garcia Arora MD [address] [place] [address] [place] [address] documented as of this encounter Visit Diagnoses Not on filedocumented in this encounter Care Teams Fan Installer Relationship Specialty Start Date End Date Mayra Santos MD PCP - General 01/21/19 documented as of this encounter
--- OUTSIDE RECORDS SUMMARY | 2024-07-10 13:21 | XMS_ITS | Encounter Summary ---
Author Organization [employer] Address [address] [place] [address] 7 [place] [address] Care Team Providers Care Immigration Lawyer Name Role Phone Mayra Santos MD Primary Care Provider [phone] Reason for Visit * Reason Onset Date Comments Hospital Follow-up 05/26/2024 Encounter Details Date Type Department Care Team ([facility] st Contact Info) Description 05/26/2024 Telephone [facility] MEDICINE [address] [place] [address] Mayra Santos MD [address] [place] [address] Hospital Follow-up Social History Tobacco Use Types Packs/Day Years [...] encounter Miscellaneous Notes * Telephone Encounter - Mayra Santos MD - 05/27/2024 3:33 PM EDT Script sent * Telephone Encounter - Lyndsey Crane RN - 05/27/2024 10:43 AM EDT Telephone call placed to pt regarding below messages. Advised compression stockings of estiven wrap at night. Ice well and take frequent rests, don't overuse it. Offered short term script Tramadol. Pt agreeable. Wants sent to [facility] on [address] Pt concerned because ankle is very swollen, thinks it is filled with fluid because she saw that there was fluid on XR report. Is wondering if we can pop it or, I can do it myself . Advised against this as it is an infection risk. Advised if not improving orswelling increasing, call ortho. She has an ortho appt booked for June and is actively following with them already for, ongoing ankle problems . Pt agreeable. It is okay to use compression stocking as long as it is comfortable. ESTIVEN wrap may be more comfortable. Recommend applying ice and avoid prolonged weight- bearing activity. Frequent rest. Due to her kidney disease, option for pain medication is limited. If she requests tramadol, I can prescribe a short supply. Thank you * Telephone Encounter - Lyndsey Crane RN - 05/27/2024 10:42 AM EDT Tc from pt informing she received her X-ray results, and it looks like there is liquid in her ankle. She also mentions that she received a boot and feels comfortable when wearing it. However, when she takes the boot off, she experiences tingling in the ankle and is seeking advice on what to do. Patient requests someone to call her for further guidance. * Telephone Encounter - Hailey Eckert RN - 05/26/2024 11:00 AM EDT TC placed to pt to f/u on [facility] ED visit on 05/23/2024. Pt was seen in the ED for a left ankle sprain. The pt was discharged home with home care instructions including wearing a boot during standing and ambulation. The pt was found to have no acute fractures. The pt still finds it to be painful upon standing and rates the pain currently at 7/10. The pt was inquiring if it would be ok to use compression stockings at night to help with the pain. The pt is also concerned as she is leaving for [place] on Sunday and wants to make sure that the pain is more under control and she will be able to ambulate safely. Pt advised that this information will be forwarded to the provider for review and advisement. Pt does have an already scheduled f/u on Sunday06/09/2024. * Telephone Encounter - Huseyin Narayanan - 05/26/2024 10:09 AM EDT Patient calling to report ED visit on : Date: 05/23/2024 Hospital: [facility] Seen for: left ankle Symptomatic No *if yes message should go to Triage Patient advised will forward to team nurse for follow up documented in this encounter Plan of Treatment Not on file documented as of this encounter Visit Diagnoses Not on filedocumented in this encounter Additional Health Concerns Assessment Noted Time PHQ-9 Depression Total Score: 3 07/14/19 23 11:25 AM EDT documented as of this encounter Care Teams Immigration Lawyer Relationship Specialty Start Date End Date Mayra Santos MD [address] [place] [address] PCP - General Family Medicine 07/24/13 documented as of this encounter
--- OUTSIDE RECORDS SUMMARY | 2024-07-10 13:21 | XMS_ITS | Encounter Summary ---
Author Organization [facility] [place], Address [address] [place] [address] Phone Care Team Providers Care Electrician Supervisor Substation Name Role Phone Mayra Santos MD Primary Care Provider [phone] Encounter Details Date Type Department Care Team (Late st Contact Info) Description 01/27/2022 Documentation Only [facility] [address] [place] [address] Carmina Dennis [place] [address] [place] [address] Social History Tobacco Use Types [...] Visit [facility] [address] [place] [address] Garcia Arora MD [address] [place] [address] [place] [address] documented as of this encounter Visit Diagnoses Not on filedocumented in this encounter Care Teams Electrician Supervisor Substation Relationship Specialty Start Date End Date Mayra Santos MD PCP - General 01/21/19 documented as of this encounter
--- OUTSIDE RECORDS SUMMARY | 2024-07-10 13:21 | XMS_ITS | Encounter Summary ---
Author Organization [email or web address] Address [address] [facility] 7t [place] [address] Care Team Providers Care Um Specialist Name Role Phone Mayra Santos MD Primary Care Provider [phone] Encounter Details Date Type Department Care Team (Late st Contact Info) Description 05/27/2024 Orders Only [facility] MEDICINE [address] [place], [place] [phone] Mayra Santos MD [address] [place], [place] [phone] Acute left ankle pain (Primary Dx) Social History Tobacco Use Types [...] as of this encounter Plan of Treatment Not on file documented as of this encounter Visit Diagnoses Diagnosis Acute left ankle pain- Primary documented in this encounter Additional Health Concerns Assessment Noted Time PHQ-9 Depression Total Score: 3 07/14/19 23 11:25 AM EDT documented as of this encounter Care Teams Um Specialist Relationship Specialty Start Date End Date Mayra Santos MD [address] [place] [address] PCP - General Family Medicine 07/24/13 documented as of this encounter
--- OUTSIDE RECORDS SUMMARY | 2024-07-10 13:21 | XMS_ITS | Encounter Summary ---
Author Organization [facility] [place], Address [address] [address] Phone Care Team Providers Care Carpet Layer Helper Name Role Phone Mayra Santos MD Primary Care Provider [phone] Encounter Details Date Type Department Care Team (Late Contact Info) Description 01/27/2022 Documentation Only [facility] [address] [place] [address] Garcia Arora MD [address] [place] [address] [place] [address] Social History Tobacco Use Types [...] [facility] [address] [place] [address] Garcia Arora MD [address] [place] [address] [place] [address] documented as of this encounter Visit Diagnoses Not on filedocumented in this encounter Care Teams Carpet Layer Helper Relationship Specialty Start Date End Date Mayra Santos MD PCP - General 01/21/19 documented as of this encounter
--- OUTSIDE RECORDS SUMMARY | 2024-07-10 13:21 | XMS_ITS | Encounter Summary ---
Author Organization [facility] [place], Address [address] [address] Phone Care Team Providers Care Bacteriologist Fishery Name Role Phone Mayra Santos MD Primary Care Provider [phone] Encounter Details Date Type Department Care Team (Late Contact Info) Description 01/23/2024 Documentation Only [facility] [address] [place] [address] Garcia Arora MD [address] [place] [address] [place] [address] Social History Tobacco Use Types [...] Visit [facility] [address] [place] [address] Garcia Arora MD [address] [place] [address] [place] [address] documented as of this encounter Visit Diagnoses Not on filedocumented in this encounter Care Teams Bacteriologist Fishery Relationship Specialty Start Date End Date Mayra Santos MD PCP - General 01/21/19 documented as of this encounter
--- OUTSIDE RECORDS SUMMARY | 2024-07-10 13:21 | XMS_ITS | Encounter Summary ---
Author Organization [facility] [place], Address [address] [place] [address] Phone Care Team Providers Care Voucher Examiner Name Role Phone Mayra Santos MD Primary Care Provider [phone] Encounter Details Date Type Department Care Team (Late st Contact Info) Description 09/26/2023 Documentation Only [facility] [address] [place] [address] Carmina Dennis [place] [address] [place] [address] Social History Tobacco Use Types [...] Visit [facility] [address] [place] [address] Garcia Arora MD [address] [place] [address] [place] [address] documented as of this encounter Visit Diagnoses Not on filedocumented in this encounter Care Teams Voucher Examiner Relationship Specialty Start Date End Date Mayra Santos MD PCP - General 01/21/19 documented as of this encounter
--- OUTSIDE RECORDS SUMMARY | 2024-07-10 13:21 | XMS_ITS | Encounter Summary ---
Author Organization [facility] [place], Address [address] [address] Phone Care Team Providers Care Community Engagement Coordinator Name Role Phone Mayra Santos MD Primary Care Provider [phone] Encounter Details Date Type Department Care Team (Late Contact Info) Description 04/17/2022 Documentation Only [facility] [address] [place] [address] Garcia Arora MD [address] [place] [address] [place] [address] Social History Tobacco Use Types [...] Visit [facility] [address] [place] [address] Garcia Arora MD [address] [place] [address] [place] [address] documented as of this encounter Visit Diagnoses Not on filedocumented in this encounter Care Teams Community Engagement Coordinator Relationship Specialty Start Date End Date Mayra Santos MD PCP - General 01/21/19 documented as of this encounter
--- OUTSIDE RECORDS SUMMARY | 2024-07-10 13:22 | XMS_ITS | Encounter Summary ---
Author Organization [employer] Address [address] [facility] 7t [place] [address] Care Team Providers Care Country Sales Manager Name Role Phone Mayra Santos MD Primary Care Provider [phone] Reason for Visit * Reason Comments Fever Encounter Details Date Type Department Care Team ([facility] Contact Info) Description 07/09/2024 5:40 PM EDT Office Visit [facility] [address] [place] [address] Fever in adult (Primary Dx); Cough, unspecified type; Neck pain without injury; Viral URI Social History Tobacco Use Types Packs/Day Years Used Date Smoking Tobacco: Former Cigarettes Passive Smoke Exposure: Never Smokeless Tobacco: Never Alcohol Use Standard Drinks/Week Comments Not Currently 0 (1 standard drink = 0.6 oz pur e alcohol) Depression Answer Date Recorded Patient Health Questionnaire-9 Score 12 06/09/2024 Patient Health Questionnaire-9 Score 12 06/09/2024 Last PHQ-9: Questionnaire Data Not on file 0 06/09/2024 Housing Stability Answer Date Recorded What is your housing situation today? I have octavio wade 06/09/[address] you li ve. Do you have problems with any of the following? None of the above 06/09/2024 Food Insecurity Answer Date Recorded Within the past 12 months, y ou worried that your food would run out before you got money to buy more: Never True 06/09/2024 Within the past 12 months,th e food you bought just didn't last and you didn't have enough money to get more: Never True Transportation Answer Date Recorded In the past 12 months, has l ack of transportation kept you from medical appts, meetings, work or from getting things needed for daily living? No 06/09/2024 Utilities Answer Date Recorded In the past 12 months, has t he electric, gas, oil or water company threatened to shut off services in your home? No 06/09/2024 Depression Answer Date Recorded Patient Health Questionnaire-2 Score 4 06/09/2024 Internet Access Answer Date Recorded Internet Access Q1 Yes 06/09/2024 Internet Access Q2 Not on file 06/09/2024 Comments No Sex and Gender Information Value Date Recorded Sex Assigned at Female 01/16/2022 10:19 AM EDT Legal Sex Female 10:19 AM EDT Gender Identity Female 01/16/2022 10:19 AM EDT Sexual Orientation Straight 01/16/2022 10 :19 AM EDT documented as of this encounter Last Filed Vital Signs Vital Sign Reading Time Taken Comments Blood Pressure 122/76 07/09/2024 6:25 PM EDT Pulse 113 07/09/2024 6:25 PM EDT Temperature 37.4 ??C (99.4 ??F) 07/09/2024 5:45 PM ED T Respiratory Rate 26 07/09/2024 5:45 PM EDT Oxygen Saturation 95% 07/09/2024 5:45 PM EDT Inhaled Oxygen Concentration - - Weight 74.5 kg (164 lb 3.2 oz) 07/09/2024 5:45 P M EDT Height 160 cm (5' 3 ) 07/09/2024 5:45 PM EDT Body Mass Index 29.09 07/09/2024 5:45 PM EDT documented in this encounter Plan of Treatment Not on file documented as of this encounter Procedures Procedure Name Priority Date/Time Associated Diagnosis Comments POCT INFLUENZA B (ID NOW RAPID MOLECULAR) Routine 07/09/2024 6:06 PM EDT Cough, unspecified type POCT INFLUENZA A (ID NOW RAPID MOLECULAR) Routine 07/09/2024 6:05 PM EDT Cough, unspecified type POCT RAPID COVID ANTIGEN Routine 07/09/2024 5:50 PM EDT Cough, unspecified type RESPIRATORY VIRAL PANEL PCR Routine 07/09/2024 12:00 AM EDT Fever in adult documented in this encounter Results * POCT Rapid Influenza B VALDIVIA ID NOW (07/09/2024 6:06 PM EDT) Influenza B Negative Negative, Indeterminate [facility] QC Media Lot # [id number] [facility] Lot# Expiration Date [facility] Swab 07/09/2024 6:06 PM EDT us Terri Appram AMPOULE WASHING MACHINE OPERATOR POINT OF CARE TEST ENTER/EDIT O RDERABLES Final Result Performing Organization Address [facility]/Va Hospital/ZIP Co de Phone Number [facility] [address] [place] [phone] * POCT Rapid Influenza A VALDIVIA ID NOW (07/09/2024 6:05 PM EDT) Influenza A Negative Negative, Indeterminate [facility] QC Media Lot # [id number] [facility] Lot# Expiration Date [facility] Swab 07/09/2024 6:05 PM EDT us Terri Appram AMPOULE WASHING MACHINE OPERATOR POINT OF CARE TEST ENTER/EDIT O RDERABLES Final Result Performing Organization Address City/Va Hospital/ZIP Co de Phone Number [facility] [address] [place] [phone] * POCT Rapid Covid-19 BinaxNOW (07/09/2024 5:50 PM EDT) Rapid COVID Ag Negative QC Media Lot # [id number] Lot# Expiration Date [id number] Swab 07/09/2024 5:50 PM EDT us Terri Appram AMPOULE WASHING MACHINE OPERATOR POINT OF CARE TEST ENTER/EDIT O RDERABLES Final Result * Respiratory Viral Panel PCR (07/09/2024 12:00 AM EDT) Adenovirus PCR Not Detected Not Detect. [facility] Bordetella pertussis PCR Not Detected Not Detect. [facility] Comment:Interpret results wi th caution. If B. pertussis isspecifically suspected, additional testing using analternate method is recommended. Bordetella parapertussis PCR Not Detected Not Detect. [facility] Chlamydia pneumoniae PCR Not Detected Not Detect. [facility] Coronavirus 229E PCR Not Detected Not Detect. [facility] Coronavirus HKU1 PCR Not Detected Not Detect. [facility] Coronavirus NL63 PCR Not Detected Not Detect. [facility] Coronavirus OC43 PCR Not Detected Not Detect. [facility] SARS-CoV-2 PCR Not Detected Not Detect. [facility] Comment:SARS-CoV-2 not detec ronal by real-time RT-PCR.Note: If clinical suspicion for Sars-CoV-2 is high, continueto maintain precautions and consider repeat testing.Test results should be interpreted in the context ofclinical findings and other laboratory data.Rare polymorphisms exist that could lead to false-negativeor false-positive results. If results do not match theclinical findings, additional testing should be considered.Results reported to [facility]ASILI[facility]ORA.This test has been authorized by the FDA under the EmergencyUse Authorization (EUA) for use by authorized laboratories. Influenza A PCR Not Detected Not Detect. [facility] Influenza A Subtype H1 Not Detected Not Detect. [facility] Influenza A H1-2009 PCR Not Detected Not Detect. [facility] Influenza A Subtype H3 Not Detected Not Detect. [facility] Influenza B PCR Not Detected Not Detect. [facility] Human metapneumovirus PCR Not Detected Not Detect. [facility] Rhino/Enterovirus PCR Not Detected Not Detect. [facility] Mycoplasma pneumoniae PCR Not Detected Not Detect. [facility] Parainfluenza 1 PCR Not Detected Not Detect. [facility] Parainfluenza 2 PCR Not Detected Not Detect. [facility] Parainfluenza 3 PCR Not Detected Not Detect. [facility] Parainfluenza 4 PCR Not Detected Not Detect. [facility] RSV PCR Not Detected Not Detect. [facility] Resp Panel NA Note See Note H [facility] Comment:All results must be correlated with clinical findings.Negative results should not be used as the sole basis fordiagnosis, treatment, or other management decisions.A negative result does not exclude the possibility of viralor bacterial infection. Negative results may occur from thepresence of sequence variants in the region targeted by theassay, the presence of inhibitors, an infection caused by anorganism not detected by the panel, or lower respiratorytract infections that are not detected by a nasopharyngealswab specimen. Test results may also be affected byconcurrent antiviral/antibacterial therapy or levels oforganism in the specimen that are below the limit ofdetection for this test.This assay is performed by Multiplexed PCR, utilizing [employer] Film Array. Swab 07/09/2024 07/09/2024 Terri Busch AMPOULE WASHING MACHINE OPERATOR LAB BLOOD ORDERABLES Final Resu lt [facility] [address] [place] [phone] documented in this encounter Visit Diagnoses Diagnosis Fever in adult- Primary Cough, unspecified type Neck pain without injury Viral URI Acute upper respiratory infections of unspecified site documented in this encounter Additional Health Concerns Assessment Noted Time PHQ-9 Depression Total Score: 12 025 5:55 PM EDT documented as of this encounter Care Teams Country Sales Manager Relationship Specialty Start Date End Date Mayra Santos MD [address] [place] [phone] PCP - General Family Medicine 07/24/13 documented as of this encounter
--- OUTSIDE RECORDS SUMMARY | 2024-07-10 13:22 | XMS_ITS | Encounter Summary ---
Author Organization [facility] [place], Address [address] [address] Phone Care Team Providers Care Letter Stamping Machine Operator Name Role Phone Mayra Santos MD Primary Care Provider [phone] Reason for Visit * Reason Comments Med Refill Encounter Details Date Type Department Care Team (Late st Contact Info) Description 01/26/2024 Refill [facility] [place], [address] [place] [place] [address] Garcia Arora MD [address] [place] [address] [place] [address] Social History Tobacco Use Types [...] Office Visit [facility] [address] [place] [address] Garcia Arora MD [address] [place] [address] [place] [address] documented as of this encounter Visit Diagnoses Not on filedocumented in this encounter Care Teams Letter Stamping Machine Operator Relationship Specialty Start Date End Date Mayra Santos MD PCP - General 01/21/19 documented as of this encounter
--- OUTSIDE RECORDS SUMMARY | 2024-07-10 13:22 | XMS_ITS | Encounter Summary ---
Author Organization [employer] Address [address] [place] [address] 7t [place] [address] Care Team Providers Care Iv Technician Name Role Phone Mayra Santos MD Primary Care Provider Encounter Details Date Type Department Care Team (Late st Contact Info) Description 12/20/2022 Abstract [facility] MEDICINE [address] [place] [address] Suzy Clark Social History Tobacco Use Types [...] Procedure Name Priority Date/Time Associated Diagnosis Comments PAP/HPV Routine 11/07/2021 documented in this encounter Results * Pap Smear (11/07/2021) Pap Negative for intraephithelial lesion or malignancy Negative for intraephithelial lesion or malignancy, Other HPV Undetected Historical Provider HEALTH MAINTENANCE Final Result documented in this encounter Visit Diagnoses Not on filedocumented in this encounter Additional Health Concerns Assessment Noted Time PHQ-9 Depression Total Score: 3 07/14/19 23 11:25 AM EDT documented as of this encounter Care Teams Iv Technician Relationship Specialty Start Date End Date Mayra Santos MD [address] [place] [address] PCP - General Family Medicine 07/24/13 documented as of this encounter
--- OUTSIDE RECORDS SUMMARY | 2024-07-10 13:22 | XMS_ITS | Encounter Summary ---
Author Organization [facility] [place], Address [address] [address] Phone Care Team Providers Care Dermatology Procedural Physician Name Role Phone Mayra Santos MD Primary Care Provider [phone] Reason for Visit * Reason Onset Date Comments Med Refill 04/28/2022 Encounter Details Date Type Department Care Team (Late st Contact Info) Description 04/28/2022 Refill [facility] [address] [place] [address] Garcia Arora MD [address] [place] [address] [place] [address] Social History Tobacco Use Types [...] Visit [facility] [address] [place] [address] Garcia Arora MD [address] [place] [address] [place] [address] documented as of this encounter Visit Diagnoses Not on filedocumented in this encounter Care Teams Dermatology Procedural Physician Relationship Specialty Start Date End Date Mayra Santos MD PCP - General 01/21/19 documented as of this encounter
--- OUTSIDE RECORDS SUMMARY | 2024-07-10 13:22 | XMS_ITS | Encounter Summary ---
Author Organization [facility] [employer] Address [address] [place] [address] Care Team Providers Care Servicing Rep Name Role Phone Mayra Santos MD Primary Care Provider [phone] Encounter Details Date Type Department Care Team ([facility] st Contact Info) Description 06/11/2024 Orders Only [facility] [address] [place], [place] [phone] Mayra Santos MD [address] [place], [place] [phone] Social History Tobacco Use Types Packs/Day Years [...] documented as of this encounter Care Teams Servicing Rep Relationship Specialty Start Date End Date Mayra Santos MD [address] [place] [id number] PCP - General Family Medicine 07/24/13 documented as of this encounter
--- OUTSIDE RECORDS SUMMARY | 2024-07-10 13:22 | XMS_ITS | Clinical Summary ---
Author Organization [employer] Address [address] [facility] [address] [place] [address] Care Team Providers Care Teleservices Representative Name Role Phone Mayra Santos MD Primary Care Provider Allergies Active Allergy Reactions Criticality Noted Date Comments Lisinopril Cough High 05/14/2014 Other reaction(s): Lip swelling Medications cholecalciferol (Vitamin D-3) 50 MCG (2000 UT) capsule TOME BRIGIDO C PSULA TODOS LOS D 023 Active ferrous sulfate 325 (65 Fe) MG tablet TAKE 1 TABLET BY MOUTH 1 TIME EACH DAY WITH BREAKFAST. 023 Active atorvastatin (Lipitor) 20 MG tablet Take 1 tablet by mouth at bed time. 021 Active empagliflozin (Jardiance) 10 MG Take 10 mg by mouth. 023 Active acetaminophen-cod eine (Tylenol w/ Codeine #3) 300-30 MG tablet TAKE 1 TABLET BY ORAL ROUTE EVERY 4 HOURS NEEDED NEEDED FOR PAIN 020 Active ergocalciferol (Vitamin D2) 1.25 MG (45239 UT) capsule TAKE 1 CAPSULE POR V [...] DAILY FOR SUPPRESSIVE THERAPY 180 tablet 3 Active losartan (Cozaar) 100 MG tabletIndications :Primary hypertension TAKE 1 TABLET BY MOUTH EVERY MORNING 90 tablet 3 Active tacrolimus (Prograf) 1 MG capsuleIndication s:Dr Maite Take 1 mg by mouth 2 times daily. Active estradiol (Estrace) 2 MG tablet Take 1 tablet (2 mg) by mouth Once per day. 90 tablet 1 025 2024 Active progesterone 200 MG capsule Take x 12 days a month, starting on first of the month 72 capsule 1 Active omeprazole (PriLOSEC) [address] capsule TOME 1 CAPSULA POR VIA ORAL TODOS LOS [place] 90 capsule 3 Active allopurinol (Zyloprim) 100 MG tablet Take 200 mg by mouth Once per day. 025 2025 Active calcium citrate (Calcitrate) 950 (200 Ca) MG tablet Take 1 tablet twice daily 024 Active Wegovy 0.5 MG/0.5ML solution auto-injector Inject 0.5 mg under the skin 1 (one) time per week. 025 2025 Active Diclofenac Sodium 1 % gelIndications:Ne ck pain without injury Apply 1 g topically if needed in the morning, at noon, and at bedtime (pain). 100 g 1 025 2024 Active acetaminophen (Tylenol Extra Strength) 500 MG tabletIndications :Neck pain without injury Take 2 tablets (1,000 mg) by mouth every 6 (six) hours if needed for mild pain for up to 14 days. 112 tablet 2024 Active baclofen (Lioresal) 5 MG tabletIndications :Neck pain without injury Take 1 tablet (5 mg) by mouth if needed in the morning and at bedtime (muscle spasm) for up to 14 days. 28 tablet 025 2024 Active ibuprofen 200 MG tabletIndications :Neck pain without injury Take 1 tablet (200 mg) by mouth every 8 (eight) hours if needed for moderate pain or fever for up to 14 days. 42 tablet 025 2024 Active acetaminophen (Tylenol Extra Strength) 500 MG tabletIndications :Viral URI Take 1 tablet (500 mg) by mouth every 8 (eight) hours if needed for mild pain. 30 tablet 023 2024 Discontinued(R eorder (will not trigger notification to Pharmacy)) predniSONE (Deltasone) 10 MG tablet Take 4 tablets (40 mg) by mouth Once per day for 4 days, THEN 3 tablets (30 mg) Once per day for 3 days, THEN 2 tablets (20 mg) Once per day for 2 days. 29 tablet 025 2024 Active Problems Problem Noted Date Diagnosed Date Adjustment disorder 06/10/2024 Assessment & Plan (06/10/2024 4:34 AM EDT): - PHQ9 score 12 and GAD7 score 3 - mainly due to her health - she has been living with significant medical conditions, once life-threatening complication - she has a stressful job and high expectation from others - she states her and friends have been supportive - will reassess after her current medical problems are better handled Left ankle pain 06/09/2024 Assessment & Plan (06/10/2024 4:28 AM EDT): - Seen in ED on 05/23/24 - Dx left ankle sprain - Hx left ankle gout - Referred to orthopedist and PT - Still significant swelling - Pt has history of osteopenia - Hx left ankle gout - Will evaluate with CT or MRI Abdominal pain 06/09/2024 Assessment & Plan (06/09/2024 4:46 PM EDT): - History of - Will evaluate with CT scan Gout of left ankle 06/13/2023 Overview (06/13/2023): -resolved -uric acid was 6.7 -no new medication started will let her Nephrologists know Assessment & Plan (06/10/2024 4:26 AM EDT): -last gout attack on left ankle in May 2023 -last uric acid was 6.7 -currently on allopurinol, prescribed by airport operations officer -possibly having gout currently; will check inflammatory marker -patient dislikes prednisone treatment -consider colchicine if airport operations officer agrees Assessment & Plan (06/13/2023 11:33 AM EDT): [...] try [facility] -PCP Will call I[employer] Support [employer] Test Engineers and Technical Rep for pt's optimal Tx for Lupus Obesity (BMI 30-39.9) 08/28/2022 Assessment & Plan (06/10/2024 4:29 AM EDT): Multifactorial: Medication Side-effects, limited physical activity, stress -Patient started seeing Weight Laborer [employer], since April 2022 -Patient is frustrated with the slow-progress. -tried phentermine from August to Nov 2022, which was ineffective -GLP-1 RA was denied by her insurance several times -Finally semaglutide has been approved in Apr 2024 -Continue current semaglutide and adjust dose as tolerated -Continue working on lifestyle modifications Assessment & Plan (03/11/2023 11:52 AM EST): Multifactorial: Medication Side-effects, limited physical activity, stress -Patient started seeing Weight Laborer [employer], since April 2022 and attending regularly -Patient [...] physical activity, stress -Patient started seeing Weight Laborer [employer], since April 2022 and attending regularly -Patient is frustrated with the slow-progress. Agreed to try Pharmacological Treatment -discussed about GLP-1 agonist and Phentermine -tried phentermine from August to Nov 2022, which was ineffective -will try GLP-1 Agonist Assessment & Plan (08/28/2022 4:11 PM EDT): Multifactorial: Medication Side-effects, limited physical activity, stress -Patient started seeing Weight Laborer [employer], since April 2022 and attending regularly -Patient is frustrated with the slow-progress. 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 She was started on immunosuppressant. She completed mycophenolate treatment in Oct 2015. She has been following with Dr. Paiz, airport operations officer, for SLE nephritis / proteinuria. She was on hydroxychloroquine until 2015 when she was following with Dr. Velásquez, paper sample clerk. Her SLE had been stable. Her renal [...] It was discontinued due to weight gain. Previously prescribed SGLT-2 inhibitor, which was not approved by her insurance. Currently on long-acting tacrolimus Continue following with Dr. Paiz. 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 She was started on immunosuppressant. She completed mycophenolate treatment in Oct 2015. She has been following with Dr. Paiz, airport operations officer, for SLE nephritis / proteinuria. She was on hydroxychloroquine until 2015 when she was following with Dr. Velásquez, paper sample clerk. Her SLE had been stable. Her renal [...] She has been following with Dr. Paiz, airport operations officer, for SLE nephritis / proteinuria. She was on hydroxychloroquine until 2015 when she was following with Dr. Velásquez, paper sample clerk. Her SLE had been stable. Her renal [...] She has been following with Dr. Paiz, airport operations officer, for SLE nephritis / proteinuria. She was [...] not approved. Osteopenia 08/24/2022 Assessment & Plan (06/10/2024 4:27 AM EDT): Chronic steroid use, longterm, tapered off in 2020 DEXA 11/25/19 Osteopenia T-score -1.9 DEXA 03/31/21 Osteopenia T-score -2.3 in femoral neck DEXA 04/12/22 Osteopenia T-score -1.5 in femoral neck Continue calcium and vitamin D supplementation ?consider bisphosphonate Weight bearing exercise Seen by paraoptometric Assessment & Plan (03/11/2023 11:37 AM EST): Chronic steroid use, longterm, tapered off in 2020 DEXA 11/25/19 Osteopenia T-score -1.9 DEXA 03/31/21 Osteopenia T-score -2.3 in femoral neck Continue calcium and vitamin D supplementation ?consider bisphosphonate Weight bearing exercise Assessment & Plan (12/01/2022 11:51 AM EDT): Chronic steroid use, extermination inspector, tapered off in 2020 DEXA 11/25/19 Osteopenia T-score -1.9 DEXA 03/31/21 Osteopenia T-score -2.3 in femoral neck Continue calcium and vitamin D supplementation ?consider bisphosphonate Weight bearing exercise Assessment & Plan (09/05/2022 10:10 AM EDT): Chronic steroid use, longterm, tapered off in 2020 DEXA 11/25/19 Osteopenia T-score -1.9 DEXA 03/31/21 Osteopenia T-score -2.3 in femoral neck Continue calcium and vitamin D supplementation ?consider bisphosphonate Weight bearing exercise Premature ovarian failure 08/24/2022 Assessment & Plan (03/11/2023 11:38 AM EST): - Seen by [facility], Dr. Mark Sal, on Nov 11 [...] Plan (03/11/2023 11:34 AM EST): -Following with [facility] -05/05/20 Elevated FSH, suggestive of premature ovarian failure -MRI on 02/17/20 did not show pituitary tumor. -Continue progesterone and estradiol. Since she has a difficulty getting refills from endocrinology office, will prescribe Assessment & Plan (12/01/2022 11:50 AM EDT): -Following with [facility] -05/05/20 Elevated FSH, suggestive of premature ovarian failure -MRI on 02/17/20 did not show pituitary tumor. -Continue progesterone and estradiol. Since she has a difficulty getting refills from endocrinology office, will prescribe Assessment & Plan (09/05/2022 10:07 AM EDT): -Following with [facility] -05/05/20 Elevated FSH, suggestive of premature ovarian failure -MRI on 02/17/20 did not show pituitary tumor. -Continue progesterone and estradiol as prescribed by paraoptometric Hypertension 06/19/2022 Assessment & Plan (06/09/2024 4:07 PM EDT): -Goal BP < 140/90 per JNC-8 and < 130/80 per ACC/AHA guideline -BP elevated today -Continue working on lifestyle modifications -Recommended self-monitoring BP. -her airport operations officer has been leading BP management -continue losartan 100 mg daily -continue furosemide 80 mg bid -Prednisone started in September 2019 and tappered down and off in September 2020 -Follow up in 3-6 mo, sooner if any problem arises Assessment & Plan (03/11/2023 11:34 AM EST): -Goal BP < 140/90 per JNC-8 and < 130/80 per ACC/AHA guideline -BP elevated today -Continue working on lifestyle modifications -Recommended self-monitoring BP. -her airport operations officer has been leading BP management -continue losartan [...] on lifestyle modifications -Recommended self-monitoring BP. -her airport operations officer has been leading BP management -continue losartan [...] Systemic lupus erythematosus 03/13/2013 Assessment & Plan (06/09/2024 4:48 PM EDT): Class IV-V -Current medications: --tacrolimus, started [...] in Oct 2015. -Completed prednisone (>1 year, 9620-0683). -Discontinued amlodipine, prescribed for Raynaud due to hypotension. -Discontinued ACEI due to cough -Discontinued ARB due to hypotension -Hydroxychloroquine (with folic acid) stopped in 2018 -Acthar (corticotropin Injection) stopped in 2365-4364 due to weight gain and other endocrinological side effect -Ict Support And Test Engineers: Dr. Paiz at [facility], last visit on 05/21/24 -Technical Rep: Dr. Rosales, last seen on 05/26/22. -Hair Blender: Dr. Luna, last seen in July 2017 for Plaquenil use. Advised to reschedule since pt was on chronic steroid / increased risk for cataract - Hx unsuccessful BTL in May 2016. Her got a vasectomy. Assessment & Plan (03/11/2023 11:42 AM EST): [...] in Oct 2015. -Completed prednisone (>1 year, 4193-6718). -Discontinued amlodipine, prescribed for Raynaud due to hypotension. -Discontinued ACEI due to cough -Discontinued ARB due to hypotension -Hydroxychloroquine (with folic acid) stopped in 2018 -Acthar (corticotropin Injection) stopped in due to weight gain and other endocrinological side effect -Ict Support And Test Engineers: Dr. Paiz at [facility], last visit on 11/14/22 -Technical Rep: Dr. Rosales, last seen on 05/26/22. -Hair Blender: Dr. Luna, last seen in July 2017 [...] in Oct 2015. -Completed prednisone (>1 year, 8147-9134). -Discontinued amlodipine, prescribed for Raynaud due to hypotension. -Discontinued ACEI due to cough -Discontinued ARB due to hypotension -Hydroxychloroquine (with folic acid) stopped in 2018 -Acthar (corticotropin Injection) stopped in 7330-7352 due to weight gain and other endocrinological side effect -Ict Support And Test Engineers: Dr. Paiz at [facility], last visit on 11/14/22 -Technical Rep: Dr. Rosales, last seen on 05/26/22. -Hair Blender: Dr. Luna, last seen in July 2017 [...] in Oct 2015. -Completed prednisone (>1 year, 1144-9706). -Discontinued amlodipine, prescribed for Raynaud due to hypotension. -Discontinued ACEI due to cough -Discontinued ARB due to hypotension -Hydroxychloroquine (with folic acid) stopped in 2018 -Acthar (corticotropin Injection) stopped in 3583-7521 due to weight gain and other endocrinological side effect -Ict Support And Test Engineers: Dr. Paiz at [facility], last visit on 05/31/22 -Technical Rep: Dr. Rosales, last seen on 05/26/22. -Hair Blender: Dr. Luna, last seen in July 2017 [...] Encounters Date Type Department Care Team Description 07/09/2024 5:40 PM EDT Office Visit [facility] [address] Fever in adult (Primary Dx); Cough, unspecified type; Neck pain without injury; Viral URI 06/24/2024 Telephone [facility] [address] [place] [phone] ABDOMEN DENIED 06/17/2024 Telephone [facility] Information Management [address] [place] [phone] lower extremity denied 06/11/2024 Orders Only [facility] [address] [place] [phone] Mayra Santos MD 06/09/2024 3:45 PM EDT Office Visit [address] [address] Mayra Santos MD Hypertension, unspecified type (Primary Dx); Encounter for immunization; Acute left ankle pain; Pain of upper abdomen; 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); Obesity (BMI 30-39.9); Dyslipidemia; Screening for diabetes mellitus; Dietary counseling; Exercise counseling; Class 1 obesity with serious comorbidity and body mass index (BMI) of 30.0 to 30.9 in adult, unspecified obesity type; Focal segmental glomerulosclerosis; Osteopenia, unspecified location; Avascular necrosis of bone (CMS/HCC); Gout of left ankle, unspecified cause, unspecified chronicity; Adjustment disorder with mixed anxiety and depressed mood 06/09/2024 Travel 06/05/2024 Telephone [facility] [address] [place] [phone] Mayra Santos MD chart prep 05/31/2024 Refill [facility] [address] [place] [address] [phone] Mayra Santos MD 05/27/2024 Orders Only [address] [address] Mayra Santos MD Acute left ankle pain (Primary Dx) 05/27/2024 Telephone [facility] [address] Mayra Santos MD Call Back Request 05/26/2024 Telephone [facility] [place] [address] Mayra Santos MD Hospital Follow-up 05/23/2024 Orders Only [facility] External Provider, [facility] 05/22/[address] [phone] Mayra Santos MD Lab question 04/29/2024 1:00 PM EST Office Visit [address] [address] Ivelisse Garcia CNM Amenorrhea (Primary Dx) 04/29/2024 Travel 04/28/2024 Telephone [facility] [place] [address] Meena Crews MA chart prep from Last 3 Months Immunizations Name Administration Dates Next Due Hep B, adult 06/26/2008,01/21/2008,12/20/2007 Influenza injectable quadriv alent IIV4 with preservative 02/27/2017,01/18/2016,05/04/2015 Influenza injectable quadriv alent preservative free 11/27/2022,02/13/2022,12/21/2020,05/21,01/11/2018 Influenza, High Dose Seasona l, Preservative Free 05/05/2015 Influenza, IIV3, injectable 12/30/2013 Influenza, Split (incl. julian fied surface antigen) 12/31/2012,11/23/2011 Influenza, seasonal, injecta ble, preservative free 06/09/2024 Pfizer Covid-19 Vaccine 12+ 06/09/2024 Pneumococcal Conjugate PCV 20 09/11/2022 Pneumococcal Polysaccharide PPSV23 10/02/2013, TD (adult), 2 Lf tetanus tox oid, preservative free, adsorbed 08/13/2008 Tdap 06/09/2024,12/31/2012 Varicella 09/11/2007 Zoster, Recombinant 11/13/2022,09/11/2022 Family History [...] Mass Index 29.09 07/09/2024 5:45 PM EDT Plan of Treatment Health Maintenance Due Date Last Done Comments HIV Screening 1980 Hepatitis C Screening 10/18/1999 COVID-19 Vaccine ( season) 2024 06/09/2024, 05/03/2023, 01/04/2021, Additional history exists Cervical Cancer Screening 10/15/2024 Family Planning (PISQ) 10/15/2024 10/16/2023 Pap Smear 10/15/2024 10/16/2023, 10/18, 10/04/2020 Alcohol/Substance Use Screening 06/09/2025 06/09/2024 Depression Screening 06/09/2025 06/09/2024, 06/10/19 25 SDOH Screening 06/09/2025 06/09/2024 Tobacco Screening 07/09/2025 07/09/2024 Mammogram 01/06/2026 01/07/2024, 12/17, 01/03/2023, Additional history exists HPV/Cotest 10/15/2028 10/16/2023, 10/18, 11/07/2021, Additional history exists Lipid Panel 06/11/2029 06/11/2024, 05/18, 11/12/2020, Additional history exists DTaP/Tdap/Td Vaccines (3 - Td or Tdap) 06/09/2034 06/09/2024, 12/31/2012, 08/13/2008 RSV Patients and Patients Aged 60 years or older (1 - 1-dose 75+ series) 2056 Hepatitis B Vaccines Completed 06/26/2008, 01/21/2008, 12/20/2007 Pneumococcal Vaccine: Pediatrics (0 to 5 Years) and At-Risk Patients (6 to 49) Years) Completed 09/11/2022, 10/02/2013, 04/24/2013 Zoster Vaccines Completed 11/13/2022, 09/11/2022 Influenza Vaccine Completed 06/09/2024, , 02/13/2022, Additional history exists HIB Vaccines Aged Out No longer eligi [...] 07/09/2024 12:00 AM EDT Fever in adult SED RATE BY MODIFIED WESTERGREN Routine 06/11/2024 11:19 AM EDT Acute left ankle pain CBC WITH AUTO DIFFERENTIAL Routine 06/11/2024 11:19 AM EDT Acute left ankle pain HEMOGLOBIN A1C Routine 06/11/2024 11:19 AM EDT Screening for diabetes mellitus LIPASE Routine 06/11/2024 11:03 AM EDT Pain of upper abdomen URIC ACID Routine 06/11/2024 11:03 AM EDT Acute left ankle pain C-REACTIVE PROTEIN Routine 06/11/2024 11 :03 AM EDT Acute left ankle pain LIPID PANEL WITH REFLEX TO DIRECT LDL Routine 06/11/2024 11:03 AM EDT Dyslipidemia COMPREHENSIVE METABOLIC PANEL Routine 06/11/2024 11:03 AM EDT Hypertension, unspecified type TSH W/REFLEX TO FT4 Routine 06/11/2024 1 1:03 AM EDT Hypertension, unspecified type XR ANKLE 3+ VIEWS LEFT Routine 6:13 AM EST BI MAMMOGRAM SCREENING TOMOSYNTHESIS BILATERAL Routine 01/07/2024 3:05 PM EDT THINPREP IMAGING PAP AND HPV MRNA E6/E7 Routine 10/16/2023 2:33 PM EDT from Last 3 Months or Most Recently Relevant to Health Maintenance Results * POCT Rapid Influenza B VALDIVIA ID NOW (07/09/2024 6:06 PM EDT) Influenza B Negative Negative, Indeterminate [facility] QC Media Lot # [id number] [facility] Lot# Expiration Date [facility] Swab 07/09/2024 6:06 PM EDT us Terri Laim ENVIRONMENTAL CONTROL ADMINISTRATOR POINT OF CARE TEST ENTER/EDIT O RDERABLES Final Result [facility] [address] [place] [phone] * POCT Rapid Influenza A VALDIVIA ID NOW (07/09/2024 6:05 PM EDT) Influenza A Negative Negative, Indeterminate [facility] QC Media Lot # [id number] [facility] Lot# Expiration Date [facility] Swab 07/09/2024 6:05 PM EDT [facility] ENVIRONMENTAL CONTROL ADMINISTRATOR POINT OF CARE TEST ENTER/EDIT O RDERABLES Final Result [facility] [address] [place] [address] [phone] * POCT Rapid Covid-19 BinaxNOW (07/09/2024 5:50 PM EDT) [facility] Rapid COVID Ag Negative QC Media Lot # [id number] Lot# Expiration Date [id number] Swab 07/09/2024 5:50 PM EDT [facility] ENVIRONMENTAL CONTROL ADMINISTRATOR POINT OF CARE TEST ENTER/EDIT O RDERABLES Final Result * Respiratory Viral Panel PCR (07/09/2024 12:00 AM EDT) [facility] Adenovirus PCR Not Detected Not Detect. [facility] Bordetella pertussis PCR Not Detected Not Detect. [facility] Comment:Interpret results wi th caution. If B. pertussis isspecifically suspected, additional testing using analternate method is recommended. Bordetella parapertussis PCR Not Detected Not Detect. [facility] Chlamydia pneumoniae PCR Not Detected Not Detect. [facility] Coronavirus 229E PCR Not Detected Not Detect. [facility] Coronavirus HKU1 PCR Not Detected Not Detect. [facility] Coronavirus NL63 PCR Not Detected Not Detect. [facility] Coronavirus OC43 PCR Not Detected Not Detect. [facility] SARS-CoV-2 PCR Not Detected Not Detect. [facility] Comment:SARS-CoV-2 not detec ronal by [...] Influenza A PCR Not Detected Not Detect. [facility] Influenza A Subtype H1 Not Detected Not Detect. [facility] Influenza A H1-2009 PCR Not Detected Not Detect. [facility] Influenza A Subtype H3 Not Detected Not Detect. [facility] Influenza B PCR Not Detected Not Detect. [facility] Human metapneumovirus PCR Not Detected Not Detect. [facility] Rhino/Enterovirus PCR Not Detected Not Detect. [facility] Mycoplasma pneumoniae PCR Not Detected Not Detect. [facility] Parainfluenza 1 PCR Not Detected Not Detect. [facility] Parainfluenza 2 PCR Not Detected Not Detect. [facility] Parainfluenza 3 PCR Not Detected Not Detect. [facility] Parainfluenza 4 PCR Not Detected Not Detect. [facility] RSV PCR Not Detected Not Detect. [facility] Resp Panel NA Note See Note H [facility] Comment:All results must be correlated with [...] assay is performed by Multiplexed PCR, utilizing [employer] Film Array. Swab 07/09/2024 07/09/2024 us Terri Busch ENVIRONMENTAL CONTROL ADMINISTRATOR LAB BLOOD ORDERABLES Final Resu lt [facility] [address] [place] [phone] * (ABNORMAL) CBC auto differential (06/11/2024 11:19 AM EDT) White Blood Count 8.3 4.8 - 10.8 X10*3/uL [facility] Red Blood Count 3.83(L) 4.20 - 5.50 X10*6/uL [facility] Hemoglobin 12.3 12.0 - 16.0 g/dl [facility] Hematocrit 36.8(L) 37.0 - 47.0 % [facility] Mean Corpuscular Volume 96.1 80.0 - 98.0 fL [facility] Mean Corpuscular Hemoglobin 32.1 27.0 - 33.0 pg [facility] Mean Corpuscular HGB Conc 33.4 31.0 - 35.0 g/dl [facility] Red Cell Distribution Width 12.6 11.0 - 16.0 % [facility] Platelet Count 367 160 - 400 X10*3/uL [facility] Mean Platelet Volume 9.2(L) 9.4 - 12.3 fL [facility] Neutrophils Percent Auto 71.3 45 - 73 % [facility] Imm Gran Pct Auto 0.5(H) 0.0 - 0.4 % [facility] Lymphocytes Percent Auto 15.5(L) 20 - 40 % [facility] Monocytes Percent Auto 9.3 2 - 11 % [facility] Eosinophils Percent Auto 2.7 0 - 4 % [facility] Basophils Percent Auto 0.7 0 - 2 % [facility] NRBC Pct Auto 0.0 0.0 - 0.2 /100WBC [facility] Neutrophils Absolute Auto 5.9 2.0 - 8.3 x10*3/uL [facility] Imm Gran Abs Auto 0.04(H) 0.00 - 0.03 X10*3/uL [facility] Lymphocytes Absolute Auto 1.3 1.2 - 4.9 X10*3/uL [facility] Monocytes Absolute Auto 0.8 0.1 - 1.2 X10*3/uL [facility] Eosinophils Absolute Auto 0.2 0.0 - 0.4 X10*3/uL [facility] Basophils Absolute Auto 0.1 0.0 - 0.2 X10*3/uL [facility] NRBC Abs Auto 0.000 0.0 - 0.012 X10*3/uL [facility] Blood Venous blood specimen / Unknown 06/11/2024 11:19 AM EDT 06/11/2024 1:32 PM EDT Mayra Santos MD LAB BLOOD ORDERABLES Final Resul t Performing Organization Address [facility] Co de Phone Number [facility] [address] [place] [phone] * (ABNORMAL) Sed Rate by Modified Caderen (06/11/2024 11:19 AM EDT) Erythrocyte Sedimentation Rate 51(H) 0 - 20 MM/HR [facility] Comment:Patients with polycy themia and many hemoglobin abnormalitiesmay have depressed sed rates whereas patients with anemiamay have elevated sed rates. Blood Venous blood specimen / Unknown 06/11/2024 11:19 AM EDT 06/11/2024 1:32 PM EDT Marya Santos MD LAB BLOOD ORDERABLES Final Resul t Performing Organization Address City/[facility] Co de Phone Number [facility] [address] [place] [address] [phone] * Hemoglobin A1c (06/11/2024 11:19 AM EDT) Hemoglobin A1c 4.8 <6.0 % [facility] Comment:Hemoglobin A1C Refer ence Range Adults: 4.8 - 6.0 % Non diabetic: < 6.0 % Goal: < 7.0 %Additional Action Suggested: > 8.0 %Note: Hemoglobin A1c results are invalid for patients with abnormal amounts of HbF. Blood transfusions may impact the HbA1c concentration in the patient sample. Estimated Average Glucose 91 mg/dL [facility] Comment:eAG = Estimated ave rage glucose which is %A1C expressed asaverage glucose, using the formula of the I2L-FjfoeecQuktqua Glucose study (ADAG), Diabetes Care, Vol.31,#8,2007 Blood Venous blood specimen / Unknown 06/11/2024 11:19 AM EDT 06/11/2024 1:32 PM EDT Mayra Santos MD LAB BLOOD ORDERABLES Final Resul t Performing Organization Address City/[facility]/ZIP Co de Phone Number [facility] [address] [place] [phone] * TSH with Reflex to Free T4 (06/11/2024 11:03 AM EDT) TSH reflex Free T4 2.39 0.32 - 4.0 uIU/mL [facility] Blood 06/11/2024 11:0 3 AM EDT 06/11/2024 1:32 PM EDT Mayar Santos MD LAB BLOOD ORDERABLES Final Resul t Performing Organization Address City/[facility]/ZIP Co de Phone Number [facility] [address] [place] [phone] * (ABNORMAL) Lipid Panel with Reflex to Direct LDL (06/11/2024 11:03 AM EDT) Triglycerides 233(H) <150 mg/dL [facility] Comment:Desirable Triglyceri de: less than 150 mg/dLBorderline High Triglyceride 150-199 mg/dLHigh Triglyceride: 200-499 mg/dLVery High Triglyceride: greater than or equal to 5OO mg/dL Cholesterol 251(H) <200 mg/dL [facility] Comment:Desirable Cholestero l: less than 200 mg/dLBorderline High Cholesterol: 200-239 mg/dLHigh Cholesterol: greater than 239 mg/dL LDL Cholesterol Calculated 139(H) <100 mg/dL [facility] Comment:Desirable LDL: less than 100 mg/dLNear Optimal/Above Optimal LDL: 110- 129 mg/dLBorderline High LDL: 130-159 mg/dLHigh LDL: 160-189 mg/dLVery High LDL: greater than or equal to 190 mg/dL HDL Cholesterol 66 >40 mg/dL [facility] Comment:Desirable HDL: great er than 40 mg/dL Note: This HDL assay may give artificially low results in patients with liver disease. Blood 06/11/2024 11:0 3 AM EDT 06/11/2024 1:32 PM EDT Mayra Santos MD LAB BLOOD ORDERABLES Final Resul t Performing Organization Address City/[facility]/ZIP Co de Phone Number [facility] [address] [place] [phone] * (ABNORMAL) C-reactive Protein (06/11/2024 11:03 AM EDT) C Reactive Protein 1.04(H) < or = 0.50 mg/dL [facility] Blood Venous blood specimen / Unknown 06/11/2024 11:03 AM EDT 06/11/2024 1:32 PM EDT Mayra Santos MD LAB BLOOD ORDERABLES Final Resul t Performing Organization Address City/[facility]/ZIP Co de Phone Number [facility] [address] [place] [phone] * (ABNORMAL) Uric acid (06/11/2024 11:03 AM EDT) Uric Acid 6.9(H) 2.4 - 5.7 mg/dL [facility] Blood Venous blood specimen / Unknown 06/11/2024 11:03 AM EDT 06/11/2024 1:32 PM EDT Mayra Santos MD LAB BLOOD ORDERABLES Final Resul t Performing Organization Address City/[facility]/ZIP Co de Phone Number [facility] [address] [place] [phone] * Lipase (06/11/2024 11:03 AM EDT) Lipase 77 8 - 78 U/L [facility] Blood Venous blood specimen / Unknown 06/11/2024 11:03 AM EDT 06/11/2024 1:32 PM EDT us Mayra Santos MD LAB BLOOD ORDERABLES Final Resul t Performing Organization Address [facility] Co de Phone Number [facility] [address] [place] [phone] [phone] * (ABNORMAL) Comprehensive Metabolic Panel (06/11/2024 11:03 AM EDT) Pathologist [facility] Sodium 137 135 - 145 mmol/L [facility] Potassium 4.7 3.3 - 5.1 mmol/L [facility] Chloride 107 96 - 108 mmol/L [facility] Carbon Dioxide 25 22 - 29 mmol/L [facility] Anion Gap 10(L) 12 - 20 [facility] Urea Nitrogen (BUN) 20(H) 9 - 16 mg/dL [facility] Creatinine, Serum 1.25 0.5 - 1.4 mg/dL [facility] Estimated Glomerular Filt Rate 47 [facility] Comment:Chronic Kidney Disea se: Estimated GFR < 60 mL/min/1.19y6Pcrzct Kidney Disease: Estimated GFR < 15 mL/min/1.73m2 Glucose 70 60 - 115 mg/dL [facility] Calcium 9.2 8.4 - 10.2 mg/dL [facility] Bilirubin, Total 0.2 0.0 - 1.0 mg/dL [facility] Aspartate Amino Transferase 17 5 - 31 U/L [facility] Alanine Aminotransferase 11 0 - 31 U/L [facility] Total Protein 7.5 6.5 - 8.0 g/dL [facility] Albumin Level 3.6 3.5 - 5.0 g/dL [facility] Alkaline Phosphatase 99 39 - 117 U/L [facility] Blood Venous blood specimen / Unknown 06/11/2024 11:03 AM EDT 06/11/2024 1:32 PM EDT us Mayra Santos MD LAB BLOOD ORDERABLES Final Resul t [facility] [address] [place] [phone] [phone] * XR Ankle 3+ Views Left (05/23/2024 6:13 AM EST) Anatomical Region Laterality Modality Lower Extremities, Ankle Left Radiogr aphic Imaging 05/23/2024 6:13 AM EST Narrative 05/23/2024 6:15 AM EST ? [facility] ?[address] ?[place] [address] ?XRay Report ? Signed ? Patient: Dolores Mock ?MR#: [id number] ?? 89 ? : 1980 ?Acct:[id number] ? Age/Sex: 43 / F ?ADM Date: 05/23/24 ? Loc: HO.ED ? Attending Dr: ? Ordering Physician: Generic ED Physician ?? Date of Service: 05/23/24 ?? Procedure(s): XR ankle LT min 3V ?? Accession Number(s): [id number] ? cc: Generic ED Physician; Mayra Santos [...] ? DD/ 2 ? TD/TT: 05/23/24612 ? Environmental Control Administrator: ? Procedure Note Donotuseinterpreter, Image - 05/23/[address] [address] XRay Report Signed Patient: Kandice Mock#: [id number] 89 : 1980Acct:[id number] Age/Sex: 43 / FADM Date: 05/23/24 Loc: HO.ED Attending Dr: Ordering Physician: Generic ED Physician Date of Service: 05/23/24 Procedure(s): XR ankle LT min 3V Accession Number(s): [id number] cc: Generic ED Physician; Mayra Santos MD [...] in OV> 05/23/24613 DD/ 2 TD/TT: 05/23/24612 Environmental Control Administrator: [facility] External Provider IMG XR PROCEDURES Final Result * BI Mammogram Screening Tomosynthesis Bilateral (01/07/2024 3:05 PM EDT) Anatomical Region Laterality Modality Breast Bilateral Mammography 01/07/2024 3:05 PM EDT Narrative 01/18/2024 10:51 AM EDT ? [facility] ? [address] ?[place] [address] ? Mammography Report ? Signed ? Patient: Nish,Dolores ?MR#: [id number] ?? 89 ? : 1980 ?Acct:[id number] ? Age/Sex: 43 / F ?ADM Date: 10/21/24 ? Loc: HO.MAMMO ? Attending Dr: Mayra Santos MD ? Ordering Physician: Mayra Santos MD ?Results: 1Negative ? Date of Service: 01/07/24 ?Follow Up: 1 Year From Orig ?? inal Mammogram ? Procedure(s): MM tomosynthesis screening BI ?? Accession Number(s): [id number] ? cc: Mayra Santos MD ? EXAMINATION: [...] ??Miguelina Rea DO ??01/18/2024 10:47 AM EDT ? Dictated By: ?Miguelina Rea DO ? Signed By: ?<Electronically signed by Miguelina Rea, DO in OV> ? 01/18/24 1047 ? DD/ 1505 ? TD/TT: 01/07/24 1522 ? Environmental Control Administrator: ? Procedure Note Donotuseinterpreter, Image - [facility]/18/20[facility] [address] [place] [address] Mammography Report Signed Patient: Kandice Mock#: [id number] 89 : 1980Acct:[id number] Age/Sex: 43 / FADM Date: 01/07/24 Loc: [facility]LL[facility] Attending Dr: Mayra Santos MD Ordering Physician: Mayra Santos MDResults: 1Negative Date of Service: 01/07/24Follow Up: 1 Year From Orig inal Mammogram Procedure(s): MM tomosynthesis screening BI Accession Number(s): [id number] cc: Mayra Santos MD EXAMINATION: MM SCREENING [...] 01/18/24 1047 DD/ 1505 TD/TT: 01/07/24 1522 Environmental Control Administrator: us Mayra Santos MD IMG BI PROCEDURES Edited Result - Final * [facility] Imaging Pap and HPV mRNA E6/E7 (10/16/2023 2:33 PM EDT) HPV nRNA E6/E7 Not Detected Not Detected [facility] Comment:Methodology: Transcr iption-Mediated AmplificationThis assay detects E6/E7 viral messenger RNA (mRNA) from 14high-risk HPV types (16,18,31,33,35,39,45,51,52,56,58,59,66,68).Cervical sources are required for HPV testing.If a vaginal source from a patient who has had atotal hysterectomy with removal of cervix wassubmitted, please contact the testing laboratoryfor alternative testing options.For additional information, please refer [email or web address](This link if provided for information/educational purposes only.)THIS TEST WAS PERFORMED AT:[facility] [place] [phone] PARADA MD SOURCE: SEE NOTE [facility] Comment:None given Report Status: [facility] Clinical Information: SEE NOTE [facility] Comment:None given LMP: SEE NOTE [facility] Comment:NONE GIVEN Prev. PAP: SEE NOTE [facility] Comment:NONE GIVEN Prev. BX: SEE NOTE [facility] Comment:NONE GIVEN Statement Of Adequacy: SEE NOTE [facility] Comment:Satisfactory for zunilda luation.Endocervical/transformation zone component absent. General Categorization: [facility] Interpretation/Result: SEE NOTE [facility] Comment:Cytology Results: Ne gative for intraepitheliallesion or malignancy. Cytology Comment SEE NOTE [facility] Comment:This Pap test has be en evaluated with computerassisted technology. Sausage Wrapper: SEE NOTE [facility] Comment:BK,CT(ASCP)CT screen ing location: [address] Review Sausage Wrapper: NYDion [facility] Pathologist [facility] PAP Infection SEE NOTE [facility] Comment:Shift in vaginal orin ra suggestive of bacterialvaginosis. See Note SEE NOTE [facility] Comment:EXPLANATORY NOTE:The Pap is a screening test for cervical cancer. It isnot a diagnostic test and is subject to false negativeand false positive results. It is most reliable when asatisfactory sample, regularly obtained, is submittedwith relevant clinical findings and history, and whenthe Pap result is evaluated along with historic andcurrent clinical information. 10/16/2023 2:33 PM EDT 10/16/2023 6:54 PM EDT Narrative [facility] - 10/18/2023 1:08 PM EDT SEE SCANNED RESULTS IN EMR us [facility] PATHOLOGY ORDERABLES Final Result [facility] [address] [place] [phone] from Last 3 Months or Most Recently Relevant to Health Maintenance Insurance [facility] HMO Care Teams Teleservices Representative Relationship Specialty Start Date End Date Mayra Santos MD [address] [place] [address] [place] [address] PCP - General Family Medicine 07/24/13
--- OUTSIDE RECORDS SUMMARY | 2024-07-10 13:22 | XMS_ITS | Clinical Summary ---
Author Organization [facility], Address [address] [place] [address] [place] [address] Phone Care Team Providers Care Lockstitch Sleeve Maker Name Role Phone Mayra Santos MD Primary Care Provider [phone] Allergies No known active allergies Medications norgestimate-et [...] 0 Active ergocalciferol (VITAMIN D2) 1.25 MG (19829 UT) capsule TAKE 1 CAPSULE POR V [...] the evening. 180 tablet 3 4 Active Tacrolimus ER (Envarsus XR) 1 MG tablet sustained-relea se 24 hour TOME DOS TABLETAS POR VIA ORAL TODOS [place] 150 tablet 11 4 Active allopurinol (ZYLOPRIM) 100 MG tablet Take 2 tablets (200 mg total) by mouth 1 (one) time each day 60 tablet 5 05/22/19 26 Active Semaglutide-Jorge ght Management (Wegovy) 0.5 MG/0.5ML solution auto-injector Inject 0.5 mg under the skin per week 2 mL 5 05/22/19 26 Active D3 Super Strength 50 MCG (1999 UT) capsule Take 1 capsule by mouth 1 (one) time each day 30 capsule 11 4 06/25/19 25 Active Problems Problem Noted Date Diagnosed Date [...] Date Type Department Care Team Description 07/09/2024 Telephone [facility] [address] [place] [address] Carmina Dennis MA 07/01/2024 Office Communication [facility] [address] [place] [address] Garcia Arora MD 05/21/2024 3:45 PM EST Office Visit [facility] [address] [place] [address] Garcia Arora MD SLE glomerulonephritis syndrome (HCC) (Primary Dx); Focal segmental glomerulosclerosis; Persistent proteinuria; Hypertension from Last 3 Months Immunizations Immunization Administration Dates Next Due Influenza Split High [...] Visit [facility] [place], [address] [place] [phone] Garcia Arora MD [address] [place] [phone] Health Maintenance Due Date Last Done Comments Hepatitis B Vaccine (1 of 3 - 19+ 3-dose series) 2000 06/26/2008, 01/21/2008, 12/20/2007 Pneumococcal Vaccine: 50+ Years Discontinued 09/11/2022, 10/02/2013, 04/24/2013 Pneumococcal Vaccine: Peds ( 0 to 5 Years) and At-Risk Patients (6 to 49 Years) Completed 09/11/2022, 10/02/2013, 04/24/2013 Influenza Vaccine Completed 06/09/2024, , 02/13/2022, Additional history exists Procedures Procedure Name Priority Date/Time Associated Diagnosis [...] Creatinine, Ur 87.4 Not Estab. mg/dL [facility] Protein, Ur 88.6 Not Estab. mg/dL [facility] Urine Protein/Creati nine Ratio 1,014(H) 0 - 200 mg/g creat [facility] Urine (Urine, Clean Catch) 05/20/2024 8:42 AM EST 05/20/2024 us Garcia Arora MD LAB URINE ORDERABLES Final Result [facility] [address] [place] [address] * (ABNORMAL) CBC and Differential (05/20/2024 8:42 AM EST) Pathologist [facility] WBC 9.9 3.4 - 10.8 x10E3/uL [facility] RBC 4.16 3.77 - 5.28 x10E6/uL [facility] Hemoglobin 13.6 11.1 - 15.9 g/dL [facility] Hematocrit 40.3 34.0 - 46.6 % [facility] MCV 97 79 - 97 fL [facility] MCH 32.7 26.6 - 33.0 pg [facility] MCHC 33.7 31.5 - 35.7 g/dL [facility] RDW 12.6 11.7 - 15.4 % [facility] Platelets 306 150 - 450 x10E3/uL [facility] Neutrophils Relative 74 Not Estab. % [facility] Lymphocytes Relative 15 Not Estab. % [facility] Monocytes 8 Not Estab. % [facility] Eosinophils Relative 2 Not Estab. % [facility] Basophils Relative 1 Not Estab. % [facility] Neutrophils Absolute 7.4(H) 1.4 - 7.0 x10E3/uL [facility] Lymphocytes Absolute 1.5 0.7 - 3.1 x10E3/uL [facility] Monocytes Absolute 0.7 0.1 - 0.9 x10E3/uL [facility] Eosinophils Absolute 0.2 0.0 - 0.4 x10E3/uL [facility] Basophils Absolute 0.1 0.0 - 0.2 x10E3/uL [facility] Immature Granulocytes 0 Not Estab. % [facility] Immature Grans (Absolute) 0.0 0.0 - 0.1 x10E3/uL [facility] Blood (Blood, Venous) 05/20/2024 8:42 AM EST 05/20/2024 us Garcia Arora MD LAB BLOOD ORDERABLES Final Result [facility] [address] [place] [address] * (ABNORMAL) Renal Function Panel (05/20/2024 8:42 AM EST) Glucose 96 70 - 99 mg/dL [facility] BUN 39(H) 6 - 24 mg/dL [facility] Creatinine 1.66(H) 0.57 - 1.00 mg/dL [facility] eGFR CKD-EPI CR 2020 39(L) >59 mL/min/1.7 3 [facility] BUN/Creatinine Ratio 23 9 - 23 [facility] Sodium 136 134 - 144 mmol/L [facility] Potassium 4.2 3.5 - 5.2 mmol/L [facility] Chloride 96 96 - 106 mmol/L [facility] Bicarbonate (CO2) 23 20 - 29 mmol/L [facility] Calcium 9.9 8.7 - 10.2 mg/dL [facility] Albumin 4.5 3.9 - 4.9 g/dL [facility] Phosphorus 3.5 3.0 - 4.3 mg/dL [facility] Blood (Blood, Venous) 05/20/2024 8:42 AM EST 05/20/2024 Garcia Arora MD LAB BLOOD ORDERABLES Final Result [facility] [address] [place] [phone] from Last 3 Months Insurance [facility] Care Teams Lockstitch Sleeve Maker Relationship Specialty Start Date End Date Mayra Santos MD PCP - General 01/21/19
--- OUTSIDE RECORDS SUMMARY | 2024-07-10 13:22 | XMS_ITS | Encounter Summary ---
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) Mayra Santos MD [address] [place] [address] Phone: tel: fax: Garcia Arora MD [address] [place] [phone] Phone: tel: fax: Referral ID Status Reason Start Date Expiration Date V isits Requested Visits Authorized [id number] Closed Specialty Services Required 09/24/2023 09/23/2024 6 6 Encounter Details Date Type Department Care Team (Late st Contact Info) Description 10/26/2023 Orders Only [facility] [address] [place], [place] [phone] Mayra Santos MD [address] [place] [address] Proteinuria, unspecified type (Primary Dx); Glomerulonephritis; Focal [...] as of this encounter Plan of Treatment Scheduled Referrals Name Type Priority Associated Diagnoses [...] documented as of this encounter Care Teams Home Visit Field Care Manager Relationship Specialty Start Date End Date Mayra Santos MD [address] [place] [phone] PCP - General Family Medicine 07/24/13 documented as of this encounter
== END 2024-07-09 00:01 | disposition home or self-care (01) ==
LOC: HO.LNP
PROVIDERS: Visit Provider Nurse Practitioner
DX: R50.9 Fever, unspecified (principal)
CPT/HCPCS: 87633

== ENCOUNTER 2024-08-12 10:30 | Outpatient (REF) | payer BC, SELFPAY ==
[2024-08-12 11:07] LABS: MANUAL DIFF FLAG NO
[2024-08-12 11:14] LABS: Basophils Percent Auto 0.1 % (0-2); Hematocrit 38.6 % (37.0-47.0); Hemoglobin 13.4 g/dl (12.0-16.0); Imm Gran Abs Auto 0.26 X10*3/uL (0.00-0.03); Imm Gran Pct Auto 1.7 % (0.0-0.4); Lymphocytes Absolute Auto 1.5 X10*3/uL (1.2-4.9); Mean Corpuscular HGB Conc 34.7 g/dl (31.0-35.0); Mean Corpuscular Hemoglobin 33.7 pg (27.0-33.0); Mean Platelet Volume 9.6 fL (9.4-12.3); Monocytes Absolute Auto 0.4 X10*3/uL (0.1-1.2); Monocytes Percent Auto 2.7 % (2-11); Neutrophils Absolute Auto 13.2 x10*3/uL (2.0-8.3); Neutrophils Percent Auto 85.5 % (45-73); Platelet Count 333 X10*3/uL (160-400); Red Blood Count 3.98 X10*6/uL (4.20-5.50); White Blood Count 15.4 X10*3/uL (4.8-10.8)
--- OUTSIDE RECORDS SUMMARY | 2024-08-12 11:16 | XMS_ITS | Encounter Summary ---
Author Organization [facility], Address [address] [place] [address] Phone Care Team Providers Care Nuclear Radiation Engineer Name Role Phone Mayra Santos MD Primary Care Provider [phone] Encounter Details Date Type Department Care Team (Late st Contact Info) Description 01/27/2022 Documentation Only [facility] [address] [place] [address] Carmina Dennis [place] [address] [place] [address] Social History Tobacco Use Types [...] Visit [facility] [address] [place] [address] Garcia Arora MD [address] [place] [address] [place] [address] documented as of this encounter Visit Diagnoses Not on filedocumented in this encounter Care Teams Nuclear Radiation Engineer Relationship Specialty Start Date End Date Mayra Santos MD PCP - General 01/21/19 documented as of this encounter
[2024-08-12 11:18] LABS: Appearance Urine Clear; Color Urine Yellow; Glucose Urine UA Negative (Negative); Leukocyte Esterase Urine Negative (Negative); Nitrite Urine Negative (Negative); PH 5.5 (5.0-9.0); Urine Blood Negative (Negative); Urine Ketones Negative (Negative); Urine Protein Trace mg/dL (Neg-Trace)
[2024-08-12 11:21] LABS: Bacteria Urine Trace (None Seen); RBC Urine 0-2 /HPF (0-2); WBC Urine 0-5 /HPF (0-5)
[2024-08-12 11:51] LABS: Erythrocyte Sedimentation Rate 12 MM/HR (0-20)
[2024-08-12 12:03] LABS: Alanine Aminotransferase 16 U/L (0-31); Albumin Level 4.4 g/dL (3.5-5.0); Alkaline Phosphatase 91 U/L (39-117); Anion Gap 15 (12-20); Aspartate Amino Transferase 18 U/L (5-31); Bilirubin Total 0.4 mg/dL (0.0-1.0); Blood Urea Nitrogen 41 mg/dL (9-16); C Reactive Protein 0.18 mg/dL (< or = 0.50); Calcium 10.2 mg/dL (8.4-10.2); Carbon Dioxide 28 mmol/L (22-29); Chloride 100 mmol/L (96-108); Estimated Glomerular Filt Rate 38; Glucose Random 116 mg/dL (60-115); Potassium 4.2 mmol/L (3.3-5.1); Sodium 139 mmol/L (135-145); Total Protein 7.8 g/dL (6.5-8.0)
== END 2024-08-12 10:31 | disposition home or self-care (01) ==
LOC: HO.HHCL 10:30
PROVIDERS: Visit Provider Family Medicine
DX: R50.9 Fever, unspecified (principal); R19.7 Diarrhea, unspecified; R11.10 Vomiting, unspecified; R10.84 Generalized abdominal pain
CPT/HCPCS: 36415; 80053; 81001; 85025; 85652; 86140

== ENCOUNTER 2024-11-21 13:31 | Outpatient (REF) | payer BC, SELFPAY ==
--- OUTSIDE RECORDS SUMMARY | 2024-11-21 13:51 | XMS_ITS | Encounter Summary ---
Author Organization [facility], Address [address] [place] [address] Phone Care Team Providers Care Pipe Fitter Helper Name Role Phone Mayra Santos MD Primary Care Provider [phone] Encounter Details Date Type Department Care Team (Late st Contact Info) Description 01/27/2022 Documentation Only [facility] [address] [place] [address] Carmina Dennis [place] [address] [place] [address] Social History Tobacco Use Types [...] Care Team (Late st Contact Info) Description 12/19/2024 4:15 PM EDT Office Visit [facility] [address] [place] [address] Garcia Arora MD [address] [place] [address] [place] [address] documented as of this encounter Visit Diagnoses Not on filedocumented in this encounter Care Teams Pipe Fitter Helper Relationship Specialty Start Date End Date Mayra Santos MD PCP - General 01/21/19 documented as of this encounter
--- OUTSIDE RECORDS SUMMARY | 2024-11-21 13:51 | XMS_ITS | Encounter Summary ---
Author Organization [facility] [place], Address [address] [address] Phone Care Team Providers Care Grout Worker Name Role Phone Mayra Santos MD Primary Care Provider [phone] Encounter Details Date Type Department Care Team (Late Contact Info) Description 01/27/2022 Documentation Only [facility] [address] [place] [address] Garcia Arora MD [address] [place] [address] [place] [address] Social History Tobacco Use Types [...] Visit [facility] [address] [place] [address] Garcia Arora MD [address] [place] [address] [place] [address] documented as of this encounter Visit Diagnoses Not on filedocumented in this encounter Care Teams Grout Worker Relationship Specialty Start Date End Date Mayra Santos MD PCP - General 01/21/19 documented as of this encounter
--- OUTSIDE RECORDS SUMMARY | 2024-11-21 13:52 | XMS_ITS | Encounter Summary ---
Author Organization [facility], Address [address] [address] Phone Care Team Providers Care Arcade Games Mechanic Name Role Phone Mayra Santos MD Primary Care Provider [phone] Reason for Visit * Reason Onset Date Comments Med Refill 04/28/2022 Encounter Details Date Type Department Care Team (Late st Contact Info) Description 04/28/2022 Refill [facility] [address] [place] [address] Garcia Arora MD [address] [place] [address] [place] [address] Social History Tobacco Use Types [...] Office Visit [facility] [address] [place] [address] Garcia Arora MD [address] [place] [address] [place] [address] documented as of this encounter Visit Diagnoses Not on filedocumented in this encounter Care Teams Arcade Games Mechanic Relationship Specialty Start Date End Date Mayra Santos MD PCP - General 01/21/19 documented as of this encounter
--- OUTSIDE RECORDS SUMMARY | 2024-11-21 13:52 | XMS_ITS | Clinical Summary ---
Author Organization [facility], Address [address] [place] [address] [place] [address] Phone Care Team Providers Care Share Dairy Farmer Name Role Phone Mayra Santos MD Primary Care Provider [phone] Allergies No known active allergies Medications norgestimate-et [...] 0 Active ergocalciferol (VITAMIN D2) 1.25 MG (77439 UT) capsule TAKE 1 CAPSULE POR V [...] FOR UP TO 10 DAYS. 3 Active Tacrolimus ER (Envarsus XR) 1 MG [...] 2 mL 11 5 05/22/19 26 Active predniSONE (DELTASONE) 20 MG tablet Take 2 tablets (40 mg total) by mouth 1 (one) time each day if needed (in tapering dose for right foot gout) 10 tablet 1 5 Active ferrous sulfate 325 (65 Fe) MG tablet TOME 1 TABLETA POR VIA ORAL TODOS [place] CON EL DESAYUNO 90 tablet 3 5 Active furosemide (LASIX) 40 MG tablet Take 1 tablet (40 mg total) by mouth in the morning and 1 tablet (40 mg total) in the evening. 60 tablet 11 5 08/23/19 26 Active cholecalciferol (VITAMIN D-3) 50 MCG (1999) capsule TOME 1 CAPSULA POR VIA ORAL TODOS [place] 90 capsule 3 5 Active Active Problems Problem Noted Date Diagnosed [...] Encounters Date Type Department Care Team Description 09/06/2024 Refill [facility] [address] [place] [address] Garcia Arora MD 09/05/2024 Refill [facility] [address] [place] [address] Garcia Arora MD 08/22/2024 4:00 PM EDT Office Visit [facility] [address] [place] [address] Garcia Arora MD SLE glomerulonephritis syndrome (HCC) (Primary Dx); Focal segmental glomerulosclerosis; Persistent proteinuria; Hypertension; Long-term drug therapy from Last 3 Months Immunizations Immunization Administration [...] Sign Reading Time Taken Comments Blood Pressure 112/84 08/22/2024 4:05 PM EDT Pulse 89 09/16/2019 11:00 AM EDT Temperature [...] Visit [facility], [address] [address] Garcia Arora MD [address] [place] [address] [place] [id number] Health Maintenance Due Date Last Done Comments Hepatitis B Vaccine (1 of 3 - 19+ 3-dose series) 2000 06/26/2008, 01/21/2008, 12/20/2007 Influenza Vaccine (#1) 2024 , 11/27/2022, 02/13/2022, Additional history exists Pneumococcal Vaccine: 50+ Years Discontinued 09/11/2022, 10/02/2013, 04/24/2013 Pneumococcal Vaccine: Peds ( 0 to 5 Years) and At-Risk Patients (6 to 49 Years) Completed 09/11/2022, 10/02/2013, 04/24/2013 Procedures Procedure Name Priority Date/Time Associated Diagnosis Comments URINE ALBUMIN / CREATININE RATIO Routine 08/22/2024 9:45 AM EDT SLE glomerulonephritis syndrome (HCC) Persistent proteinuria Glomerulonephritis Long-term drug therapy Essential hypertension RENAL FUNCTION PANEL Routine 08/22/2024 9:45 AM EDT SLE glomerulonephritis syndrome (HCC) Persistent proteinuria Glomerulonephritis Long-term drug therapy Essential hypertension CBC AND DIFFERENTIAL Routine 08/22/2024 9:45 AM EDT SLE glomerulonephritis syndrome (HCC) Persistent proteinuria Glomerulonephritis Long-term drug therapy Essential hypertension PTH, INTACT Routine 08/22/2024 9:43 AM EDT FERRITIN Routine 08/22/2024 9:43 AM EDT URIC ACID Routine 08/22/2024 9:43 AM EDT PROTEIN / CREATININE RATIO, URINE Routine 08/22/2024 9:43 AM EDT IRON PANEL (FE, TIBC, TSAT) Routine 08/22/2024 9:43 AM EDT CBC Routine 08/22/2024 9:43 AM EDT RENAL FUNCTION PANEL Routine 08/22/2024 9:43 AM EDT URINALYSIS WITH MICROSCOPIC Routine 08/22/2024 9:43 AM EDT MICROSCOPIC EXAMINATION - DO NOT USE Routine 08/22/2024 9:43 AM EDT TACROLIMUS LEVEL Routine 08/22/2024 9:42 AM EDT from Last 3 Months Results * (ABNORMAL) Urine Albumin / Creatinine Ratio (08/22/2024 9:45 AM EDT) Creatinine, Ur 115.0 Not Estab. mg/dL [facility] Albumin, Urine 262.1 Not Estab. ug/mL [facility] Albumin/Creatin ine Ratio 228(H) 0 - 29 mg/g creat [facility] Comment: Normal: 0 - 29 Moderately increased: 30 - 300 Severely increased: >300 Urine Urine specimen obtained by clean catch procedure / Unknown 08/22/2024 9:45 AM EDT 08/22/2024 us Garcia Arora MD LAB URINE ORDERABLES Final Result [facility] [address] [place] [address] * (ABNORMAL) CBC and Differential (08/22/2024 9:45 AM EDT) WBC 7.5 3.4 - 10.8 x10E3/uL [facility] RBC 3.54(L) 3.77 - 5.28 x10E6/uL [facility] Hemoglobin 12.0 11.1 - 15.9 g/dL [facility] Hematocrit 35.6 34.0 - 46.6 % [facility] MCV 101(H) 79 - 97 fL [facility] MCH 33.9(H) 26.6 - 33.0 pg [facility] MCHC 33.7 31.5 - 35.7 g/dL [facility] RDW 14.8 11.7 - 15.4 % [facility] Platelets 235 150 - 450 x10E3/uL [facility] Neutrophils Relative 77 Not Estab. % [facility] Lymphocytes Relative 16 Not Estab. % [facility] Monocytes 7 Not Estab. % [facility] Eosinophils Relative 0 Not Estab. % [facility] Basophils Relative 0 Not Estab. % [facility] Neutrophils Absolute 5.7 1.4 - 7.0 x10E3/uL [facility] Lymphocytes Absolute 1.2 0.7 - 3.1 x10E3/uL [facility] Monocytes Absolute 0.5 0.1 - 0.9 x10E3/uL [facility] Eosinophils Absolute 0.0 0.0 - 0.4 x10E3/uL [facility] Basophils Absolute 0.0 0.0 - 0.2 x10E3/uL [facility] Immature Granulocytes 0 Not Estab. % [facility] Immature Grans (Absolute) 0.0 0.0 - 0.1 x10E3/uL [facility] Blood Venous blood / Unknown 08/22/2024 9:45 AM EDT 08/22/2024 us Garcia Arora MD LAB BLOOD ORDERABLES Final Result [facility] [address] [place] [address] * (ABNORMAL) Renal Function Panel (08/22/2024 9:45 AM EDT) Only the most recent of2 resultswithin the time period is included. Glucose 89 70 - 99 mg/dL [facility] BUN 35(H) 6 - 24 mg/dL [facility] Creatinine 1.60(H) 0.57 - 1.00 mg/dL [facility] eGFR CKD-EPI CR 2020 41(L) >59 mL/min/1.7 3 [facility] BUN/Creatinine Ratio 22 9 - 23 [facility] Sodium 136 134 - 144 mmol/L [facility] Potassium 4.4 3.5 - 5.2 mmol/L [facility] Chloride 98 96 - 106 mmol/L [facility] Bicarbonate (CO2) 20 20 - 29 mmol/L [facility] Calcium 9.4 8.7 - 10.2 mg/dL [facility] Albumin 4.1 3.9 - 4.9 g/dL [facility] Phosphorus 2.7(L) 3.0 - 4.3 mg/dL [facility] Blood Venous blood / Unknown 08/22/2024 9:45 AM EDT 08/22/2024 Garcia Arora MD LAB BLOOD ORDERABLES Final Result Performing Organization Address [facility] de Phone Number [facility] [address] [place] [address] * (ABNORMAL) Microscopic Examination (08/22/2024 9:43 AM EDT) WBC, Urine 0-5 0 - 5 /hpf [facility] RBC, Urine None seen 0 - 2 /hpf [facility] Squamous Epithelial, Urine >10(A) 0 - 10 /hpf [facility] Casts None seen None seen /lpf [facility] Bacteria, Urine Few None seen/Few [facility] 08/22/2024 9:43 AM EDT 08/22/2024 Garcia Arora MD LAB MICROBIOLOGY - GENERAL ORDERABLES Final Result Performing Organization Address City/[facility]/ZIP Co de Phone Number [facility] [address] [place] [address] * Iron Panel (Fe, TIBC, TSAT) (08/22/2024 9:43 AM EDT) Pathologist [facility] TIBC 275 250 - 450 ug/dL [facility] UIBC 207 131 - 425 ug/dL [facility] Iron 68 27 - 159 ug/dL [facility] Iron Saturation (TSat) 25 15 - 55 % [facility] 08/22/2024 9:43 AM EDT 08/22/2024 Garcia Arora MD LAB BLOOD ORDERABLES Final Result Performing Organization Address City/[facility]/ZIP Co de Phone Number [facility] [address] [place] [address] * (ABNORMAL) Protein, Total, Random Urine w/Creatinine (Protein/Creat Ratio) (08/22/2024 9:43 AM EDT) [facility] Creatinine, Ur 116.2 Not Estab. mg/dL [facility] Protein, Ur 42.7 Not Estab. mg/dL [facility] Urine Protein/Creati nine Ratio 367(H) 0 - 200 mg/g creat [facility] 08/22/2024 9:43 AM EDT 08/22/2024 Garcia Arora MD LAB URINE ORDERABLES Final Result [facility] [address] [place] [address] * (ABNORMAL) Urinalysis with microscopic (08/22/2024 9:43 AM EDT) [facility] Specific [place], Urine 1.017 1.005 - 1.030 [facility] [phone] pH Urine 5.5 5.0 - 7.5 [facility] [phone] Color, Urine Yellow Yellow [facility] Appearance Urine Cloudy(A) Clear [facility] WBC Esterase Urine Negative Negative [facility] Protein, Ur 2+(A) Negative/Tra ce [facility] Glucose, Ur Negative Negative [facility] Ketones, Urine Negative Negative [facility] Blood Urine Negative Negative [facility] Bilirubin Urine Negative Negative [facility] Urobilinogen Urine 0.2 0.2 - 1.0 mg/dL [facility] Nitrite, Urine Negative Negative [facility] Microscopic Examination See below: [facility] Comment:Microscopic was lorna cated and was performed. 08/22/2024 9:43 AM EDT 08/22/2024 us Garcia Arora MD LAB URINE ORDERABLES Final Result [facility] [address] [place] [address] * (ABNORMAL) CBC (08/22/2024 9:43 AM EDT) WBC 7.6 3.4 - 10.8 x10E3/uL [facility] RBC 3.54(L) 3.77 - 5.28 x10E6/uL [facility] Hemoglobin 12.1 11.1 - 15.9 g/dL [facility] Hematocrit 36.0 34.0 - 46.6 % [facility] MCV 102(H) 79 - 97 fL [facility] MCH 34.2(H) 26.6 - 33.0 pg [facility] MCHC 33.6 31.5 - 35.7 g/dL [facility] RDW 14.8 11.7 - 15.4 % [facility] Platelets 229 150 - 450 x10E3/uL [facility] 08/22/2024 9:43 AM EDT 08/22/2024 Garcia Arora MD LAB BLOOD ORDERABLES Final Result Performing Organization Address City/[facility]/ZIP Co de Phone Number [facility] [address] [place] [address] * (ABNORMAL) Uric Acid (08/22/2024 9:43 AM EDT) Uric Acid 8.7(H) 2.6 - 6.2 mg/dL [facility] Comment:Therapeutic target f or gout patients: <6.0 08/22/2024 9:43 AM EDT 08/22/2024 Garcia Arora MD LAB BLOOD ORDERABLES Final Result Performing Organization Address City/[facility]/ZIP Co de Phone Number [facility] [address] [place] [address] * (ABNORMAL) PTH, Intact (08/22/2024 9:43 AM EDT) PTH 68(H) 15 - 65 pg/mL [facility] 08/22/2024 9:43 AM EDT 08/22/2024 Garcia Arora MD LAB BLOOD ORDERABLES Final Result Performing Organization Address City/[facility] Co de Phone Number [facility] [address] [place] [address] * (ABNORMAL) Ferritin (08/22/2024 9:43 AM EDT) Ferritin 231(H) 15 - 150 ng/mL [facility] 08/22/2024 9:43 AM EDT 08/22/2024 Garcia Arora MD LAB BLOOD ORDERABLES Final Result [facility] [address] [place] [address] * (ABNORMAL) Tacrolimus level (08/22/2024 9:42 AM EDT) Tacrolimus Lvl 1.5(L) 5.0 - 20.0 ng/mL [facility] Comment: Target steady state trough concentration for Tacrolimus varies based on type of organ transplant immunosuppressive protocol and other patient specific factors. Tacrolimus trough concentrations should be interpreted in conjunction with clinical assessments of rejection and tolerability. Values obtained with different assay methods cannot be used interchangeably due to differences in assay methods and cross-reactivty with metabolites, nor should correction factors be applied. Therefore, consistent use of one assay for individual patients is recommended. Detection Limit = 0.5 ng/mL Performed by LC-MS/MS technology. 08/22/2024 9:42 AM EDT 08/22/2024 Narrative [facility] - 08/25/2024 6:06 PM EDT Test(s) 360925-[id number] ([id number]), Blood was developed and its performance characteristics determined by [facility]. It has not been cleared or approved by the Food and Drug Administration. Garcia Arora MD LAB BLOOD ORDERABLES Final Result [facility] [address] [place] [phone] from Last 3 Months Insurance [facility] Care Teams Share Dairy Farmer Relationship Specialty Start Date End Date Mayra Santos MD PCP - General 01/21/19
--- OUTSIDE RECORDS SUMMARY | 2024-11-21 13:52 | XMS_ITS | Encounter Summary ---
Author Organization [facility] [place], Address [address] [address] Phone Care Team Providers Care Outside Machinist Helper Name Role Phone Mayra Santos MD Primary Care Provider [phone] Encounter Details Date Type Department Care Team (Late Contact Info) Description 01/23/2024 Documentation Only [facility] [address] [address] Garcia Arora MD [address] [place] [address] [place] [address] Social History Tobacco Use Types [...] Visit [facility] [address] [place] [address] Garcia Arora MD [address] [place] [address] [place] [address] documented as of this encounter Visit Diagnoses Not on filedocumented in this encounter Care Teams Outside Machinist Helper Relationship Specialty Start Date End Date Mayra Santos MD PCP - General 01/21/19 documented as of this encounter
--- OUTSIDE RECORDS SUMMARY | 2024-11-21 13:52 | XMS_ITS | Encounter Summary ---
Author Organization [facility] [place], Address [address] [address] Phone Care Team Providers Care Deputy Head Name Role Phone Mayra Santos MD Primary Care Provider [phone] Encounter Details Date Type Department Care Team (Late Contact Info) Description 04/17/2022 Documentation Only [facility] [address] [place] [address] Garcia Arora MD [address] [place] [address] [place] [address] Social History Tobacco Use Types [...] Visit [facility] [address] [place] [address] Garcia Arora MD [address] [place] [address] [place] [address] documented as of this encounter Visit Diagnoses Not on filedocumented in this encounter Care Teams Deputy Head Relationship Specialty Start Date End Date Mayra Santos MD PCP - General 01/21/19 documented as of this encounter
--- OUTSIDE RECORDS SUMMARY | 2024-11-21 13:52 | XMS_ITS | Encounter Summary ---
Author Organization [employer] Address [address] [facility] 7t [place] [address] Care Team Providers Care Survey Technician Name Role Phone Mayra Santos MD Primary Care Provider [phone] Encounter Details Date Type Department Care Team ([facility] st Contact Info) Description 06/11/2024 Orders Only [facility] [address] [place], [place] [phone] Mayra Santos MD [address] [place], [place] [phone] Social History Tobacco Use Types Packs/Day Years [...] documented as of this encounter Care Teams Survey Technician Relationship Specialty Start Date End Date Mayra Santos MD [address] [place] [address] PCP - General Family Medicine 07/24/13 documented as of this encounter
--- OUTSIDE RECORDS SUMMARY | 2024-11-21 13:52 | XMS_ITS | Encounter Summary ---
Author Organization [facility] [place], Address [address] [address] Phone Care Team Providers Care Continuous Improvement Black Belt Name Role Phone Mayra Santos MD Primary Care Provider [phone] Encounter Details Date Type Department Care Team (Late Contact Info) Description 01/23/2024 Documentation Only [facility] [address] [place] [place] [address] Garcia Arora MD [address] [place] [address] [place] [address] Social History Tobacco Use Types [...] [facility] [address] [place] [place] [address] Garcia Arora MD [address] [place] [address] [place] [address] documented as of this encounter Visit Diagnoses Not on filedocumented in this encounter Care Teams Continuous Improvement Black Belt Relationship Specialty Start Date End Date Mayra Santos MD PCP - General 01/21/19 documented as of this encounter
--- OUTSIDE RECORDS SUMMARY | 2024-11-21 13:52 | XMS_ITS | Encounter Summary ---
Author Organization [facility] [place], Address [address] [address] Phone Care Team Providers Care Bobbin Collector Name Role Phone Mayra Santos MD Primary Care Provider [phone] Encounter Details Date Type Department Care Team (Late Contact Info) Description 08/18/2024 Documentation Only [facility] [address] [place] [address] Garcia Arora MD [address] [place] [address] [place] [address] Social History Tobacco Use Types [...] Visit [facility] [address] [place] [address] Garcia Arora MD [address] [place] [address] [place] [address] documented as of this encounter Visit Diagnoses Not on filedocumented in this encounter Care Teams Bobbin Collector Relationship Specialty Start Date End Date Mayra Santos MD PCP - General 01/21/19 documented as of this encounter
--- OUTSIDE RECORDS SUMMARY | 2024-11-21 13:52 | XMS_ITS | Encounter Summary ---
Author Organization [facility] [place], Address [address] [address] Phone Care Team Providers Care Cupola Operator Name Role Phone Mayra Santos MD Primary Care Provider [phone] Reason for Visit * Reason Comments Med Refill Encounter Details Date Type Department Care Team (Late st Contact Info) Description 01/26/2024 Refill [facility] [place], [address] [place] [address] Garcia Arora MD [address] [place] [address] [place] [address] Social History Tobacco Use Types [...] Office Visit [facility] [address] [place] [address] Garcia Arora MD [address] [place] [address] [place] [address] documented as of this encounter Visit Diagnoses Not on filedocumented in this encounter Care Teams Cupola Operator Relationship Specialty Start Date End Date Mayra Santos MD PCP - General 01/21/19 documented as of this encounter
--- OUTSIDE RECORDS SUMMARY | 2024-11-21 13:52 | XMS_ITS | Encounter Summary ---
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) Mayra Santos MD [address] [place] [address] Phone: tel: fax: Garcia Arora MD [address] [place] [address] Phone: tel: fax: Referral ID Status Reason Start Date Expiration Date V isits Requested Visits Authorized [id number] Closed Specialty Services Required 09/24/2023 09/23/2024 6 6 Encounter Details Date Type Department Care Team (Late st Contact Info) Description 10/26/2023 Orders Only [facility] [address] [place], [place] [phone] Mayra Santos MD [address] [place], [place] [phone] Proteinuria, unspecified type (Primary Dx); Glomerulonephritis; Focal [...] documented as of this encounter Care Teams Composing Room Machinist Relationship Specialty Start Date End Date Mayra Santos MD [address] [place] [address] PCP - General Family Medicine 07/24/13 documented as of this encounter
--- OUTSIDE RECORDS SUMMARY | 2024-11-21 13:52 | XMS_ITS | Encounter Summary ---
Author Organization [employer] Address [address] [place] [address] 7 [place] [address] Care Team Providers Care Tape Deck Installer Name Role Phone Mayra Santos MD Primary Care Provider [phone] Reason for Referral * Imaging (Routine) - Denied Specialty Diagnoses / Procedures Referred By Contac t Referred To Contact Radiology Diagnoses Generalized abdominal pain Nausea and vomiting, unspecified vomiting type Diarrhea, unspecified type Fever, unspecified fever cause Other systemic lupus erythematosus with glomerular disease ([facility]/HCC) Procedures CT Abdomen Pelvis w/ Contrast Mayra Santos MD [address] [place] [address] Phone: tel: fax: [address] Phone: tel: fax: Referral ID Status Reason Start Date Expiration Date Visits Re quested Visits Authorized [id number] Denied 07/17/2024 07/17/2025 1 0 Encounter Details Date Type Department Care Team (Late st Contact Info) Description 07/17/2024 Orders Only [facility] [address] [place] [address] [phone] Mayra Santos MD [address] [place] [address] [phone] Generalized abdominal pain (Primary Dx); Nausea and vomiting, unspecified vomiting type; Diarrhea, unspecified type; Fever, unspecified fever cause; Other systemic lupus erythematosus with glomerular disease [...] of this encounter Plan of Treatment Scheduled Orders Name Type Priority Associated Diagnoses Orde r Schedule CT Abdomen Pelvis w/ Contrast Imaging Routine Generalized abdominal pain Nausea and vomiting, unspecified vomiting type Diarrhea, unspecified type Fever, unspecified fever cause 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) Expected: 07/17/2024, Expires: 07/17/2025 documented as of this encounter Procedures Procedure Name Priority Date/Time Associated Diagnosis Comments URINALYSIS, COMPLETE, WITH REFLEX TO CULTURE Routine 08/12/2024 10:32 AM EDT Generalized abdominal pain documented in this encounter Results * Urinalysis, Complete, with Reflex to Culture (08/12/2024 10:32 AM EDT) Color Urine Yellow [facility] Appearance Urine Clear [facility] PH 5.5 5.0 - 9.0 [facility] Glucose Urine UA Negative Negative mg/dL [facility] Urine Blood Negative Negative [facility] Specific [place] - Urine 1.010 1.005 - 1.025 [facility] Urine Protein Trace Neg-Trace mg/dL [facility] Urine Ketones Negative Negative mg/dL [facility] Nitrite Urine Negative Negative [facility] Leukocyte Esterase Urine Negative Negative [facility] RBC Urine 0-2 0 - 2 /HPF [facility] Urine WBC 0-5 0 - 5 /HPF [facility] Urine Squamous Epithelial Cell 3-5 0 - 2 /HPF [facility] Urine Bacteria Trace None Seen [facility] Hyaline Casts, Urine 3-5 0 - 2 /LPF [facility] Urine 08/12/2024 10:3 2 AM EDT 08/12/2024 11:11 AM EDT Narrative [facility] - 08/12/2024 11:23 AM EDT Urine, Clean Catch us Mayra Santos MD LAB URINE ORDERABLES Final Resul t [facility] [address] [place], [place] [phone] documented in this encounter Visit Diagnoses Diagnosis Generalized abdominal pain- Primary Abdominal pain, generalized Nausea and vomiting, unspecified vomiting type Diarrhea, unspecified type Fever, unspecified fever cause 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
--- OUTSIDE RECORDS SUMMARY | 2024-11-21 13:52 | XMS_ITS | Encounter Summary ---
Author Organization [employer] Address [address] [place] [address] 7 [place] [address] Care Team Providers Care Apartment Maintenance Name Role Phone Mayra Santos MD Primary Care Provider [phone] Reason for Visit * Reason Onset Date Comments Hospital Follow-up 05/26/2024 Encounter Details Date Type Department Care Team ([facility] st Contact Info) Description 05/26/2024 Telephone [facility] MEDICINE [address] [place] [address] Mayra Santos MD [address] [place] [address] Hospital Follow-up Social History Tobacco Use Types [...] script Tramadol. Pt agreeable. Wants sent to [facility] on [address] Pt concerned because ankle [...] TC placed to pt to f/u on [facility] [place] on 05/23/2024. Pt was seen [...] also concerned as she is leaving for [place] on Sunday and wants to make sure [...] ED visit on : Date: 05/23/2024 Hospital: [facility] Seen for: left ankle Symptomatic No *if [...] documented as of this encounter Care Teams Apartment Maintenance Relationship Specialty Start Date End Date Mayra Santos MD [address] [place] [phone] PCP - General Family Medicine 07/24/13 documented as of this encounter
--- OUTSIDE RECORDS SUMMARY | 2024-11-21 13:52 | XMS_ITS | Encounter Summary ---
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) Mayra Santos MD [address] [place] [address] Phone: tel: fax: [facility] [address] [place] [phone] Phone: tel: fax: Referral ID Status Reason Start Date Expiration Date V isits Requested Visits Authorized [id number] Closed Consult and Treat 08/13/2024 08/13/2025 1 1 Encounter Details Date Type Department Care Team (Late st Contact Info) Description 08/13/2024 Orders Only [facility] MEDICINE [address] [place] [phone] Mayra Santos MD [address] [place] [address] Vision problem (Primary Dx); Other systemic lupus erythematosus with glomerular disease [...] Associated Diagnoses Orde r Schedule Referral to [facility] Outpatient Referral Routine Vision problem 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
--- OUTSIDE RECORDS SUMMARY | 2024-11-21 13:52 | XMS_ITS | Encounter Summary ---
Author Organization [employer] Address [address] [facility] 7t [place] [address] Care Team Providers Care Tanning Solution Maker Name Role Phone Mayra Santos MD Primary Care Provider [phone] Encounter Details Date Type Department Care Team (Late st Contact Info) Description 05/27/2024 Orders Only [facility] MEDICINE [address] [place], [place] [phone] Mayra Santos MD [address] [place], [place] [phone] Acute left ankle pain (Primary Dx) Social [...] documented as of this encounter Care Teams Tanning Solution Maker Relationship Specialty Start Date End Date Mayra Santos MD [address] [place] [phone] PCP - General Family Medicine 07/24/13 documented as of this encounter
--- OUTSIDE RECORDS SUMMARY | 2024-11-21 13:52 | XMS_ITS | Encounter Summary ---
Author Organization [employer] Address [address] [facility] 7t [place] [address] Care Team Providers Care Test Driller Name Role Phone Mayra Santos MD Primary Care Provider Encounter Details Date Type Department Care Team ([facility] st Contact Info) Description 07/17/2024 Orders Only [facility] MEDICINE [address] [place], [place] [phone] Mayra Santos MD [address] [place], [place] [phone] Abdominal pain, unspecified abdominal location (Primary Dx); Fever, unspecified fever cause; Diarrhea, unspecified type; Vomiting, unspecified vomiting type, unspecified whether nausea present Social History Tobacco Use Types Packs/Day Years [...] your housing situation today? I have octavio sheri 06/09/[address] you li [...] Type Priority Associated Diagnoses Orde r Schedule Stool - Gastrointestinal panel Microbiology Routine Abdominal pain, unspecified abdominal location Fever, unspecified fever cause Diarrhea, unspecified type Vomiting, unspecified vomiting type, unspecified whether nausea present Expected: 07/17/2024 (Approximate), Expires: 07/17/2025 documented as of this encounter Procedures Procedure Name Priority Date/Time Associated Diagnosis Comments CBC WITH AUTO DIFFERENTIAL Routine 08/12/2024 10:32 AM EDT Abdominal pain, unspecified abdominal location Fever, unspecified fever cause Diarrhea, unspecified type Vomiting, unspecified vomiting type, unspecified whether nausea present SED RATE BY MODIFIED WESTERGREN Routine 08/12/2024 10:32 AM EDT Abdominal pain, unspecified abdominal location Fever, unspecified fever cause Diarrhea, unspecified type Vomiting, unspecified vomiting type, unspecified whether nausea present C-REACTIVE PROTEIN Routine 08/12/2024 10 :32 AM EDT Abdominal pain, unspecified abdominal location Fever, unspecified fever cause Diarrhea, unspecified type Vomiting, unspecified vomiting type, unspecified whether nausea present COMPREHENSIVE METABOLIC PANEL Routine 08/12/2024 10:32 AM EDT Abdominal pain, unspecified abdominal location Fever, unspecified fever cause Diarrhea, unspecified type Vomiting, unspecified vomiting type, unspecified whether nausea present documented in this encounter Results * Sed Rate by Modified Caderen (08/12/2024 10:32 AM EDT) Erythrocyte Sedimentation Rate 12 0 - 20 MM/HR [facility] Comment:Patients with polycy themia and many hemoglobin abnormalitiesmay have depressed sed rates whereas patients with anemiamay have elevated sed rates. Blood Venous blood specimen / Unknown 08/12/2024 10:32 AM EDT 08/12/2024 11:04 AM EDT Mayra Santos MD LAB BLOOD ORDERABLES Final Resul t Performing Organization Address [facility] de Phone Number [facility] [address] [place] [phone] * C-reactive Protein (08/12/2024 10:32 AM EDT) C Reactive Protein 0.18 < or = 0.50 mg/dL [facility] Blood Venous blood specimen / Unknown 08/12/2024 10:32 AM EDT 08/12/2024 11:04 AM EDT Mayra Santos MD LAB BLOOD ORDERABLES Final Resul t Performing Organization Address [facility] Co de Phone Number [facility] [address] [place] [phone] * (ABNORMAL) Comprehensive Metabolic Panel (08/12/2024 10:32 AM EDT) Sodium 139 135 - 145 mmol/L [facility] Potassium 4.2 3.3 - 5.1 mmol/L [facility] Chloride 100 96 - 108 mmol/L [facility] Carbon Dioxide 28 22 - 29 mmol/L [facility] Anion Gap 15 12 - 20 [facility] Urea Nitrogen (BUN) 41(H) 9 - 16 mg/dL [facility] Creatinine, Serum 1.51(H) 0.5 - 1.4 mg/dL [facility] Estimated Glomerular Filt Rate 38 [facility] Comment:Chronic Kidney Disea se: Estimated GFR < 60 mL/min/[id number] Kidney Disease: Estimated GFR < 15 mL/min/1.73m2 Glucose 116(H) 60 - 115 mg/dL [facility] Calcium 10.2 8.4 - 10.2 mg/dL [facility] Bilirubin, Total 0.4 0.0 - 1.0 mg/dL [facility] Aspartate Amino Transferase 18 5 - 31 U/L [facility] Alanine Aminotransferase 16 0 - 31 U/L [facility] Total Protein 7.8 6.5 - 8.0 g/dL [facility] Albumin Level 4.4 3.5 - 5.0 g/dL [facility] Alkaline Phosphatase 91 39 - 117 U/L [facility] Blood Venous blood specimen / Unknown 08/12/2024 10:32 AM EDT 08/12/2024 11:04 AM EDT us Mayra Santos MD LAB BLOOD ORDERABLES Final Resul t [facility] [address] [place] [phone] * (ABNORMAL) CBC auto differential (08/12/2024 10:32 AM EDT) White Blood Count 15.4(H) 4.8 - 10.8 X10*3/uL [facility] Red Blood Count 3.98(L) 4.20 - 5.50 X10*6/uL [facility] Hemoglobin 13.4 12.0 - 16.0 g/dl [facility] Hematocrit 38.6 37.0 - 47.0 % [facility] Mean Corpuscular Volume 97.0 80.0 - 98.0 fL [facility] Mean Corpuscular Hemoglobin 33.7(H) 27.0 - 33.0 pg [facility] Mean Corpuscular HGB Conc 34.7 31.0 - 35.0 g/dl [facility] Red Cell Distribution Width 15.0 11.0 - 16.0 % [facility] Platelet Count 333 160 - 400 X10*3/uL [facility] Mean Platelet Volume 9.6 9.4 - 12.3 fL [facility] Neutrophils Percent Auto 85.5(H) 45 - 73 % [facility] Imm Gran Pct Auto 1.7(H) 0.0 - 0.4 % [facility] Lymphocytes Percent Auto 10.0(L) 20 - 40 % [facility] Monocytes Percent Auto 2.7 2 - 11 % [facility] Eosinophils Percent Auto 0.0 0 - 4 % [facility] Basophils Percent Auto 0.1 0 - 2 % [facility] NRBC Pct Auto 0.0 0.0 - 0.2 /100WBC [facility] Neutrophils Absolute Auto 13.2(H) 2.0 - 8.3 x10*3/uL [facility] Imm Gran Abs Auto 0.26(H) 0.00 - 0.03 X10*3/uL [facility] Lymphocytes Absolute Auto 1.5 1.2 - 4.9 X10*3/uL [facility] Monocytes Absolute Auto 0.4 0.1 - 1.2 X10*3/uL [facility] Eosinophils Absolute Auto 0.0 0.0 - 0.4 X10*3/uL [facility] Basophils Absolute Auto 0.0 0.0 - 0.2 X10*3/uL [facility] NRBC Abs Auto 0.000 0.0 - 0.012 X10*3/uL [facility] Blood Venous blood specimen / Unknown 08/12/2024 10:32 AM EDT 08/12/2024 11:04 AM EDT us Mayra Santos MD LAB BLOOD ORDERABLES Final Resul t [facility] [address] [place] [phone] documented in this encounter Visit Diagnoses Diagnosis Abdominal pain, unspecified abdominal location- Primary Fever, unspecified fever cause Diarrhea, unspecified type Vomiting, unspecified vomiting type, unspecified whether nausea present documented in this encounter Additional Health Concerns Assessment Noted Time PHQ-9 Depression Total Score: 12 025 5:55 PM EDT documented as of this encounter Care Teams Test Driller Relationship Specialty Start Date End Date Mayra Santos MD [address] [place] [phone] PCP - General Family Medicine 07/24/13 documented as of this encounter
--- OUTSIDE RECORDS SUMMARY | 2024-11-21 13:52 | XMS_ITS | Encounter Summary ---
Author Organization [employer] Address [address] [place] [address] 7t [place] [address] Care Team Providers Care Card Checker Name Role Phone Mayra Santos MD Primary Care Provider [phone] Encounter Details Date Type Department Care Team (Late st Contact Info) Description 12/20/2022 Abstract [facility] MEDICINE [address] [place] [address] Suzy Clark Social History Tobacco Use Types [...] documented as of this encounter Care Teams Card Checker Relationship Specialty Start Date End Date Mayra Santos MD [address] [place] [address] PCP - General Family Medicine 07/24/13 documented as of this encounter
--- OUTSIDE RECORDS SUMMARY | 2024-11-21 13:52 | XMS_ITS | Encounter Summary ---
Author Organization [facility], Address [address] [place] [address] Phone Care Team Providers Care Accounts Receivable Associate Name Role Phone aMyra Santos MD Primary Care Provider [phone] Encounter Details Date Type Department Care Team (Late st Contact Info) Description 01/21/2024 Documentation Only [facility] [address] [place] [address] Carmina Dennis [place] [address] [place] [address] Social History Tobacco Use Types [...] [facility] [address] [place] [address] Garcia Arora MD [address] [place] [address] [place] [address] documented as of this encounter Visit Diagnoses Not on filedocumented in this encounter Care Teams Accounts Receivable Associate Relationship Specialty Start Date End Date Mayra Santos MD PCP - General 01/21/19 documented as of this encounter
--- OUTSIDE RECORDS SUMMARY | 2024-11-21 13:52 | XMS_ITS | Encounter Summary ---
Author Organization [facility], Address [address] [place] [address] Phone Care Team Providers Care Multimedia Developer Name Role Phone Mayra Santos MD Primary Care Provider [phone] Encounter Details Date Type Department Care Team (Late st Contact Info) Description 09/26/2023 Documentation Only [facility] [address] [place] [address] Carmina Dennis [place] [address] [place] [address] Social History Tobacco Use Types [...] Visit [facility] [address] [place] [address] Garcia Arora MD [address] [place] [address] [place] [address] documented as of this encounter Visit Diagnoses Not on filedocumented in this encounter Care Teams Multimedia Developer Relationship Specialty Start Date End Date Mayra Santos MD PCP - General 01/21/19 documented as of this encounter
--- OUTSIDE RECORDS SUMMARY | 2024-11-21 13:53 | XMS_ITS | Clinical Summary ---
Author Organization [employer] Address [address] [place] [address] Care Team Providers Care Development Advisor Name Role Phone Mayra Santos MD Primary Care Provider [phone] Allergies Active Allergy Reactions Criticality Noted Date Comments Lisinopril Cough High 05/14/2014 Other reaction(s): Lip swelling Medications cholecalciferol (Vitamin D-3) 50 MCG (2000 UT) capsule TOME BRIGIDO C DEEPTHI Mccray 06/07/19 23 Active ferrous sulfate 325 (65 Fe) MG tablet TAKE 1 TABLET BY MOUTH 1 TIME EACH DAY WITH BREAKFAST. 06/03/19 23 Active atorvastatin (Lipitor) 20 MG tablet Take 1 tablet by mouth at bed time. 07/21/19 21 Active empagliflozin (Jardiance) 10 MG Take 10 mg by mouth. 11/15/19 23 Active acetaminophen-code ine (Tylenol w/ Codeine #3) 300-30 MG tablet TAKE 1 TABLET BY ORAL ROUTE EVERY 4 HOURS NEEDED NEEDED FOR PAIN 08/05/19 20 Active ergocalciferol (Vitamin D2) 1.25 MG (30457 UT) capsule TAKE 1 CAPSULE POR V A ORAL EVERY WEEK FOR 12 WEEKS 01/20/20 20 Active furosemide (Lasix) 80 MG tablet Take 80 mg by mouth. 06/04/19 24 Active magnesium 250 MG tablet LEE BRIGIDO Mccray 04/04/19 23 Active magnesium oxide 250 MG tablet TAKE 1 TABLET BY MOUTH EVERY DAY 90 tablet 1 12/27/19 24 Active valACYclovir (Valtrex) 500 MG tabletIndications: Herpes simplex vulvovaginitis TAKE 1 TABLET BY MOUTH TWICE DAILY FOR SUPPRESSIVE THERAPY 180 tablet 3 03/20/19 Active losartan (Cozaar) 100 MG tabletIndications: Primary hypertension TAKE 1 TABLET BY MOUTH EVERY MORNING 90 tablet 3 04/04/19 Active tacrolimus (Prograf) 1 MG capsuleIndications :Dr Arora Take 1 mg by mouth 2 times daily. Active omeprazole (PriLOSEC) [address] capsule TOME 1 CAPSULA POR VIA ORAL TODOS [place] 90 capsule 3 06/03/19 Active allopurinol (Zyloprim) 100 MG tablet Take 200 mg by mouth Once per day. 05/22/19 Active calcium citrate (Calcitrate) 950 (200 Ca) MG tablet Take 1 tablet twice daily 01/10/20 Active Wegovy 0.5 MG/0.5ML solution auto-injector Inject 0.5 mg under the skin 1 (one) time per week. 05/22/19 Active Diclofenac Sodium 1 % gelIndications:Nec k pain without injury APPLY 1 GRAMS TOPICALLY CUANDO SEA NECESARIO IN THE MORNING, AT NOON, AND AL ACOSTARSE FOR PAIN 100 g 1 09/09/19 Active estradiol (Estrace) 2 MG tablet Take 1 tablet (2 mg) by mouth Once per day. 90 tablet 3 10/17/19 Active progesterone 200 MG capsule Take x 12 days a month, starting on first of the month 72 capsule 1 10/17/19 Active Active Problems Problem Noted Date Diagnosed [...] was 6.7 -currently on allopurinol, prescribed by cotton jammer -possibly having gout currently; will check inflammatory marker -patient dislikes prednisone treatment -consider colchicine if cotton jammer agrees Assessment & Plan (06/13/2023 11:33 AM [...] try [facility] -PCP Will call Aboriginal Ceremonial Celebrant and Finance Teacher for pt's optimal Tx for Lupus Obesity (BMI 30-39.9) 08/28/2022 Assessment & Plan (06/10/2024 4:29 AM EDT): Multifactorial: Medication Side-effects, limited physical activity, stress -Patient started seeing Weight Telephone Information Clerk, since April 2022 -Patient is frustrated with [...] physical activity, stress -Patient started seeing Weight Telephone Information Clerk, since April 2022 and attending regularly -Patient [...] physical activity, stress -Patient started seeing Weight Telephone Information Clerk, since April 2022 and attending regularly -Patient is frustrated with the slow-progress. 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 She was on hydroxychloroquine until 2015 when she was following with Dr. Velásquez, orthotic finish grinding technician. Her SLE had been stable. 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 She was on hydroxychloroquine until 2015 when she was following with Dr. Velásquez, orthotic finish grinding technician. Her SLE had been stable. 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 She was on hydroxychloroquine until 2015 when she was following with Dr. Velásquez, orthotic finish grinding technician. Her SLE had been stable. 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 She was [...] (06/10/2024 4:27 AM EDT): Chronic steroid use, chcf, tapered off in 2020 DEXA 11/25/19 Osteopenia T-score -1.9 DEXA 03/31/21 Osteopenia T-score -2.3 in femoral neck DEXA 04/12/22 Osteopenia T-score -1.5 in femoral neck Continue calcium and vitamin D supplementation ?consider bisphosphonate Weight bearing exercise Seen by bail bonding agent Assessment & Plan (03/11/2023 11:37 AM EST): Chronic steroid use, terminal carman, tapered off in 2020 DEXA 11/25/19 Osteopenia T-score -1.9 DEXA 03/31/21 Osteopenia T-score -2.3 in femoral neck Continue calcium and vitamin D supplementation ?consider bisphosphonate Weight bearing exercise Assessment & Plan (12/01/2022 11:51 AM EDT): Chronic steroid use, chcf, tapered off in 2020 DEXA 11/25/19 Osteopenia T-score -1.9 DEXA 03/31/21 Osteopenia T-score -2.3 in femoral neck Continue calcium and vitamin D supplementation ?consider bisphosphonate Weight bearing exercise Assessment & Plan (09/05/2022 10:10 AM EDT): Chronic steroid use, chcf, tapered off in 2020 DEXA 11/25/19 Osteopenia T-score -1.9 DEXA 03/31/21 Osteopenia T-score -2.3 in femoral neck Continue calcium and vitamin D supplementation ?consider bisphosphonate Weight bearing exercise Premature ovarian failure 08/24/2022 Assessment & Plan (03/11/2023 11:38 AM EST): - Seen by [facility] endocrinology, Dr. Mark Sal, on Nov 11 [...] Plan (03/11/2023 11:34 AM EST): -Following with [facility] Endocrinology -05/05/20 Elevated FSH, suggestive of premature ovarian failure -MRI on 02/17/20 did not show pituitary tumor. -Continue progesterone and estradiol. Since she has a difficulty getting refills from endocrinology office, will prescribe Assessment & Plan (12/01/2022 11:50 AM EDT): -Following with [facility] Endocrinology -05/05/20 Elevated FSH, suggestive of premature ovarian failure -MRI on 02/17/20 did not show pituitary tumor. -Continue progesterone and estradiol. Since she has a difficulty getting refills from endocrinology office, will prescribe Assessment & Plan (09/05/2022 10:07 AM EDT): -Following with [facility] Endocrinology -05/05/20 Elevated FSH, suggestive of premature ovarian failure -MRI on 02/17/20 did not show pituitary tumor. -Continue progesterone and estradiol as prescribed by bail bonding agent Hypertension 06/19/2022 Assessment & Plan (06/09/2024 4:07 PM EDT): -Goal BP < 140/90 per JNC-8 and < 130/80 per ACC/AHA guideline -BP elevated today -Continue working on lifestyle modifications -Recommended self-monitoring BP. -her cotton jammer has been leading BP management -continue losartan [...] on lifestyle modifications -Recommended self-monitoring BP. -her cotton jammer has been leading BP management -continue losartan [...] on lifestyle modifications -Recommended self-monitoring BP. -her cotton jammer has been leading BP management -continue losartan [...] in Oct 2015. -Completed prednisone (>1 year, 1962-6890). -Discontinued amlodipine, prescribed for Raynaud due to hypotension. -Discontinued ACEI due to cough -Discontinued ARB due to hypotension -Hydroxychloroquine (with folic acid) stopped in 2018 -Acthar (corticotropin Injection) stopped in 8464-7999 due to weight gain and other endocrinological side effect -Aboriginal Ceremonial Celebrant: Dr. Paiz at [facility], last visit on 05/21/24 -Finance Teacher: Dr. Rosales, last seen on 05/26/22. -Clinical Services Professional: Dr. Luna, last seen in July 2017 [...] in Oct 2015. -Completed prednisone (>1 year, 3558-1131). -Discontinued amlodipine, prescribed for Raynaud due to hypotension. -Discontinued ACEI due to cough -Discontinued ARB due to hypotension -Hydroxychloroquine (with folic acid) stopped in 2018 -Acthar (corticotropin Injection) stopped in 7399-4580 due to weight gain and other endocrinological side effect -Aboriginal Ceremonial Celebrant: Dr. Paiz at [facility], last visit on 11/14/22 -Finance Teacher: Dr. Rosales, last seen on 05/26/22. -Clinical Services Professional: Dr. Luna, last seen in July 2017 [...] in Oct 2015. -Completed prednisone (>1 year, 8798-1899). -Discontinued amlodipine, prescribed for Raynaud due to hypotension. -Discontinued ACEI due to cough -Discontinued ARB due to hypotension -Hydroxychloroquine (with folic acid) stopped in 2018 -Acthar (corticotropin Injection) stopped in 9325-3289 due to weight gain and other endocrinological side effect -Aboriginal Ceremonial Celebrant: Dr. Paiz at [facility], last visit on 11/14/22 -Finance Teacher: Dr. Rosales, last seen on 05/26/22. -Clinical Services Professional: Dr. Luna, last seen in July 2017 [...] in Oct 2015. -Completed prednisone (>1 year, 7321-1946). -Discontinued amlodipine, prescribed for Raynaud due to hypotension. -Discontinued ACEI due to cough -Discontinued ARB due to hypotension -Hydroxychloroquine (with folic acid) stopped in 2018 -Acthar (corticotropin Injection) stopped in 1426-3056 due to weight gain and other endocrinological side effect -Aboriginal Ceremonial Celebrant: Dr. Paiz at [facility], last visit on 05/31/22 -Finance Teacher: Dr. Rosales, last seen on 05/26/22. -Clinical Services Professional: Dr. Luna, last seen in July 2017 [...] Encounters Date Type Department Care Team Description 10/16/2024 1:45 PM EDT Procedure Visit [facility] [address] [place] [address] Ivelisse Garcia CNM Primary ovarian insufficiency (Primary Dx); Problem with body image 10/16/2024 Travel 10/15/2024 Telephone [facility] [address] [place] [address] Ivelisse Garcia CNM chart prep 10/09/2024 Travel 09/07/2024 Refill [facility] [address] [place] [address] Terri Busch NP Neck pain without injury from Last 3 Months Immunizations Immunization Administration Dates Next Due Hep B, adult [...] Q2 Not on file 06/09/2024 Comments No Intention Date Recorded No desire to become (finding) 0 10/16/2024 Sex and Gender Information Value Date Recorded Sex Assigned at Female 01/16/2022 10:19 AM EDT Legal Sex Female 10:19 AM EDT Gender Identity Female 01/16/2022 10:19 AM EDT Sexual Orientation Straight 01/16/2022 10 :19 AM EDT Last Filed Vital Signs Vital Sign Reading Time Taken Comments Blood Pressure 150/90 10/16/2024 1:49 PM EDT Pulse 85 10/16/2024 1:49 PM EDT Temperature 37.1 C (98.8 F) 10/16/2024 1:49 PM EDT Respiratory Rate 14 10/16/2024 1:49 PM EDT Oxygen Saturation 99% 10/16/2024 1:49 PM EDT Inhaled Oxygen Concentration - - Weight 73.6 kg (162 lb 3.2 oz) 10/16/2024 1:49 P M EDT Height 160 cm (5' 3 ) 07/09/2024 5:45 PM EDT Body Mass Index 28.73 07/09/2024 5:45 PM EDT Plan of Treatment Health Maintenance Due Date Last Done Comments HIV Screening 1981 HPV Vaccines (1 - 3-dose series) 1996 Hepatitis C Screening 10/18/1999 Influenza Vaccine (#1) 2024 , 11/27/2022, 02/13/2022, Additional history exists COVID-19 Vaccine (6 - Moderna risk season) 2024 06/09/2024, 05/03/2023, 01/04/2021, Additional history exists Depression Monitoring 12/10/2024 06/09/2024, 025 Alcohol/Substance Use Screening 06/09/2025 06/09/2024 Disability Screening 06/09/2025 06/09/2024 SDOH Screening 06/09/2025 06/09/2024 Family Planning (PISQ) 10/16/2025 10/16/2024 Tobacco Screening 10/16/2025 10/16/2024 Mammogram 01/06/2026 01/07/2024, 12/17, 01/03/2023, Additional history exists Cervical Cancer Screening 10/15/2026 Pap Smear 10/15/2026 10/16/2023, 10/18, 10/04/2020 HPV/Cotest 10/15/2028 10/16/2023, 10/18, 11/07/2021, Additional history exists Lipid Panel 06/11/2029 06/11/2024, 05/18, 11/12/2020, Additional history exists DTaP/Tdap/Td Vaccines (3 - Td or Tdap) 06/09/2034 06/09/2024, 12/31/2012, 08/13/2008 RSV Patients and Patients Aged 60 years or older (1 - 1-dose 75+ series) 2056 Hepatitis B Vaccines Completed 06/26/2008, 01/21/2008, 12/20/2007 Pneumococcal Vaccine: Pediatrics (0 to 5 Years) and At-Risk Patients (6 to 49) Years Completed 09/11/2022, 10/02/2013, 04/24/2013 Zoster Vaccines Completed 11/13/2022, 09/11/2022 HIB Vaccines Aged Out No longer eligi ble based on patient's age to complete this topic Hepatitis A Vaccines Aged Out No long er eligible based on patient's age to complete this topic IPV Vaccines Aged Out No longer eligi ble based on patient's age to complete this topic Meningococcal B Vaccine Aged Out No l onger eligible based on patient's age to complete [...] Procedure Name Priority Date/Time Associated Diagnosis Comments LIPID PANEL WITH REFLEX TO DIRECT LDL Routine 06/11/2024 11:03 AM EDT Dyslipidemia BI MAMMOGRAM SCREENING TOMOSYNTHESIS BILATERAL Routine 01/07/2024 3:05 PM EDT THINPREP IMAGING PAP AND HPV MRNA E6/E7 Routine 10/16/2023 2:33 PM EDT from Last 3 Months or Most Recently Relevant to Health Maintenance Results * (ABNORMAL) Lipid Panel with Reflex to Direct LDL (06/11/2024 11:03 AM EDT) Triglycerides 233(H) <150 mg/dL [facility] Comment:Desirable Triglyceri de: less than 150 mg/dLBorderline High Triglyceride 150-199 mg/dLHigh Triglyceride: 200-499 mg/dLVery High Triglyceride: greater than or equal to 5OO mg/dL Cholesterol 251(H) <200 mg/dL [facility] Comment:Desirable Cholestero l: less than 200 mg/dLBorderline High Cholesterol: 200-239 mg/dLHigh Cholesterol: greater than 239 mg/dL LDL Cholesterol Calculated 139(H) <100 mg/dL [facility] Comment:Desirable LDL: less than 100 mg/dLNear Optimal/Above Optimal LDL: 110- 129 mg/dLBorderline High LDL: 130-159 mg/dLHigh LDL: 160-189 mg/dLVery High LDL: greater than or equal to 190 mg/dL HDL Cholesterol 66 >40 mg/dL [facility] Comment:Desirable HDL: great er than 40 mg/dL Note: This HDL assay may give artificially low results in patients with liver disease. Blood 06/11/2024 11:0 3 AM EDT 06/11/2024 1:32 PM EDT us Mayra Santos MD LAB BLOOD ORDERABLES Final Resul t [facility] [address], [place] [id number] [phone] * BI Mammogram Screening Tomosynthesis Bilateral (01/07/2024 3:05 PM EDT) Anatomical Region Laterality Modality Breast Bilateral Mammography 01/07/2024 3:05 PM EDT Narrative 01/18/2024 10:51 AM EDT [facility] [address] [place] [address] Mammography Report Signed Patient: Dolores Mock MR#: [id number] : 1980 Acct:[id number] Age/Sex: 43 / F ADM Date: 01/07/24 Loc: MAMMNel Attending Dr: Mayra Santos MD Ordering Physician: Mayra Santos MD Results: 1Negative Date of Service: 01/07/24 Follow Up: 1 Year From Orig ina Mammogram Procedure(s): MM tomosynthesis screening BI Accession Number(s): [id number] cc: Mayra Santos MD EXAMINATION: MM SCREENING [...] Miguelina Rea DO 01/18/2024 10:47 AM EDT Dictated By: Miguelina Rea DO Signed By: <Electronically signed by Miguelina Rea DO in OV> 01/18/24 1047 DD/ 1505 TD/TT: 01/07/24 1522 Customer Service Teller: Procedure Note Donotuseinterpreter, Image - 01/18/2024 [place] [facility] [address] [place], [place] [address] Mammography Report Signed Patient: Kandice Mock#: [id number] : 1980Acct:[id number] Age/Sex: 43 / FADM Date: 01/07/24 Loc: BELLA Attending Dr: Mayra Santos MD Ordering Physician: Mayra Santos MDResults: 1Negative Date of Service: 01/07/24Follow Up: 1 Year From Orig inal Mammogram Procedure(s): MM tomosynthesis screening BI Accession Number(s): [id number] cc: Mayra Santos MD EXAMINATION: MM SCREENING [...] Miguelina Rea DO 01/18/2024 10:47 AM EDT Dictated By: Miguelina Rea DO Signed By: <Electronically signed by Miguelina Rea DO in OV> 01/18/24 1047 DD/ 1505 TD/TT: 01/07/24 1522 Customer Service Teller: Mayra Santos MD [facility] [place] PROCEDURES Edited Result - Final * ThinPrep Imaging Pap and HPV mRNA E6/E7 (10/16/2023 2:33 PM EDT) HPV nRNA E6/E7 Not Detected Not Detected [facility] Comment:Methodology: Transcr iption-Mediated AmplificationThis assay detects E6/E7 viral messenger RNA (mRNA) from 14high-risk HPV types (16,18,31,33,35,39,45,51,52,56,58,59,66,68).Cervical sources are required for HPV testing.If a vaginal source from a patient who has had atotal hysterectomy with removal of cervix wassubmitted, please contact the testing laboratoryfor alternative testing options.For additional information, please refer [email or web address]/faq/NCU306z3(This link if provided for information/educational purposes only.)THIS TEST WAS PERFORMED AT:[facility] [address] [id number] PARADA MD SOURCE: SEE NOTE [facility] Comment:None given Report Status: [facility] Clinical Information: SEE NOTE [facility] Comment:None given LMP: SEE NOTE [facility] Comment:NONE GIVEN Prev. PAP: SEE NOTE [facility] Comment:NONE GIVEN Prev. BX: SEE NOTE [facility] Comment:NONE GIVEN Statement Of Adequacy: SEE NOTE [facility] Comment:Satisfactory for zunilda luation.Endocervical/transformation zone component absent. General Categorization: [facility] Interpretation/Result: SEE NOTE [facility] Comment:Cytology Results: Ne gative for intraepitheliallesion or malignancy. Cytology Comment SEE NOTE [facility] Comment:This Pap test has be en evaluated with computerassisted technology. Call Center Rn: SEE NOTE [facility] Comment:BK,CT(ASCP)CT screen ing location: [address] Review Call Center Rn: [facility] Pathologist [facility] PAP Infection SEE NOTE [facility] Comment:Shift in vaginal orin ra suggestive of bacterialvaginosis. See Note SEE [facility] Comment:EXPLANATORY NOTE:The Pap is a screening test for cervical cancer. It isnot a diagnostic test and is subject to false negativeand false positive results. It is most reliable when asatisfactory sample, regularly obtained, is submittedwith relevant clinical findings and history, and whenthe Pap result is evaluated along with historic andcurrent clinical information. 10/16/2023 2:33 PM EDT 10/16/2023 6:54 PM EDT Narrative [facility] - 10/18/2023 1:08 PM EDT SEE SCANNED RESULTS IN EMR us Ivelisse Garcia CNM LAB PATHOLOGY ORDERABLES Final Result [facility] [address] [facility] [place] [phone] from Last 3 Months or Most Recently Relevant to Health Maintenance Insurance Care Teams Development Advisor Relationship Specialty Start Date End Date Mayra Santos MD [address] [facility] [place] [address] PCP - General Family Medicine 07/24/13
--- OUTSIDE RECORDS SUMMARY | 2024-11-21 13:53 | XMS_ITS | Clinical Summary ---
Author Organization [facility] Address [address] [place] [address] [place] [phone] Phone Care Team Providers Care Pairer Substandard Name Role Phone Brooke Carolina MD Primary Care [facility] Medications valACYclovir (VALTREX) 500 MG tablet Take 500 mg by mouth. 03/05/2023 Active magnesium oxide 250 mg (150 mg elemental) Tab Take 1 tablet by mouth daily. 04/19/2023 Active losartan (COZAAR) 100 MG tablet Take 1 tablet by mouth every morning. 04/16/2023 Active empagliflozin (JARDIANCE) 10 mg tablet Take 10 mg by mouth. 11/14/2022 Active Social History Tobacco Use Types Packs/Day Years Used Date Smoking Tobacco: Never Assessed Education Answer Date Recorded Are you interested in more education? Not on alexa e 07/13/2022 Are you concerned about learning? Not on file 07/13/2022 No 07/13/2022 No 07/13/2022 Digital Access Answer Date Recorded No 08/12/2022 No 08/12/2022 Reliable internet access at home? Not on file 08/12/2022 Device with a working camera? Not on file Comments Unknown Sex and Gender Information Value Date Recorded Sex Assigned at Not on file Legal Sex Female 3:04 PM EST Gender Identity Not on file Sexual Orientation Not on file Plan of Treatment Upcoming Encounters Date Type Department Care Team ([facility] Contact Info) Description 01/28/2026 10:10 AM EST Office Visit [facility] Rheumatology [address] [place] [address] Jennifer Verdin MD, MPH [address] [facility], [address] [place] [address] Health Maintenance Due Date Last Done Comments CREATININE LEVEL 1981 POTASSIUM LEVEL 1981 DEPRESSION SCREENING 1993 SMOKING Hx and SMOKELESS TOBACCO SCREENING 1994 HEPATITIS C SCREENING 10/18/1999 HIV ONE-TIME SCREENING (18-6 5 YEARS) 10/18/1999 PAP SMEAR 2002 Adult Td,Tdap Booster 12/31/2022 12/31/2012 INFLUENZA VACCINE (#1) 2024 , 01/11/2018 COVID-19 VACCINE (3 - 2024-2 6 season) 2024 06/15/2020, 05/18/2020 MAMMOGRAM 01/03/2025 01/03/2023 PNEUMOCOCCAL VACCINES (0-49 years) Aged Out 10/02/2013, 04/24/2013 No longer eligible based on patient's age to complete this topic HEPATITIS A VACCINES Aged Out No long er eligible based on patient's age to complete this topic HIB VACCINES Aged Out No longer eligi ble based on patient's age to complete this topic MENINGOCOCCAL VACCINES (ACWY) Aged Out No longer eligible based on patient's age to complete this topic MENINGOCOCCAL VACCINES (B) Aged Out N o longer eligible based on patient's age to complete this topic Medical Devices Not on file Insurance [facility] [address] [place] Care Teams Pairer Substandard Relationship Specialty Start Date End Date Kane, Brooke Richards MD [address] [place] [id number] PCP - General Family Medicine 06/25/23 Additional Source Comments The information contained in this document represents components of the legal health record. It is not the complete legal health record.[facility]
== END 2024-11-21 13:32 | disposition home or self-care (01) ==
LOC: HO.HHCL 13:31
PROVIDERS: PCP Family Medicine; Visit Provider Advanced Practice Midwife
DX: N91.2 Amenorrhea, unspecified (principal); Z32.02 Encounter for pregnancy test, result negative
CPT/HCPCS: 36415; 84146; 84443; 84702